=== PATIENT | female | born 1965 | race Caucasian/White ===

== ENCOUNTER 2017-05-01 15:45 | Emergency (ER) | payer OTHER ==
[~2017-05-01] VITALS: Ht 162.6 cm; Wt 83.9 kg
[~2017-05-01 15:45] MED LIST: ALBU8HFA2 INH; ALPR.25 PO; ALPR.5 PO; ASCO500 PO; ASPI325 PO; BENZ100A PO; Bactrim Ds Tab1 EACH PO; CEPH500 PO; CLIN150 PO; CLIN300 PO; CLOP75 PO; CODGUAEL PO; Cipro500 MG PO; Cleocin HCl150 MG PO; Coumadin5 MG PO; DOCU100 PO; DOXY100 PO; FLUC150A PO; Flagyl500 MG PO; HYDACE5 PO; HYDACE5325 PO; HYDMOR2 PO; HYDR1TAB94 PO; Humalog100 UNIT/1; Hydrocodone-Ap1 EA23 PO; IBUP800 PO; INS70/30PN SC; INSDET100 SC; INSUASPI SC; INSULANPEN SC; LISI5 PO; LORA.5 PO; LORA1 PO; METF500 PO; NAPR500 PO; Norco 5-325 Ta1 EACH PO; Novolog100 UNIT/2 SC; OXYACE5T PO; OXYC5 PO; PROM25 PO; RXHYDACE PO; RXIBUP800 PO; RXOXYACE PO; RXSULTRIDS PO; SULTRIDS PO; Silvadene20 GM TOP; TRAZ100 PO; Ultram50 MG PO; VALA500 PO; Vibramycin100 MG PO; Vistaril50 MG PO; ZINC220 PO; Zithromax250 MG PO; Zofran Odt4 MG SL; Zofran4 MG PO
[2017-05-01 16:28] LABS: BASOPHILS ABSOLUTE AUTO 0.09 K/mm3 (0.00-0.23); BASOPHILS PERCENT AUTO 1 % (0-2); EOSINOPHILS ABSOLUTE AUTO 0.16 K/mm3 (0.00-0.68); EOSINOPHILS PERCENT AUTO 2 % (0-6); Hematocrit 33.4 % (33.0-51.0); IMMATURE GRAN ABSOLUTE AUTO 0.04 K/mm3 (0.00-0.10); IMMATURE GRAN PERCENT AUTO 0 % (0-1); LYMPHOCYTES PERCENT AUTO 22 % (21-46); MONOCYTES ABSOLUTE AUTO 0.79 K/mm3 (0.16-1.47); MONOCYTES PERCENT AUTO 8 % (4-13); Mean Corpuscular HGB 27.3 pg (26.0-34.0); Mean Corpuscular HGB Conc 32.9 g/dL (31.5-36.5); Mean Corpuscular Volume 83 fL (80-100); NEUTROPHILS ABSOLUTE AUTO 7.13 K/mm3 (1.96-9.15); NEUTROPHILS PERCENT AUTO 68 % (41-73); Platelet Count 339 K/mm3 (150-400); RDW Coefficient Variation 12.6 % (11.7-14.2); RDW Standard Deviation 38.2 fL (35.1-46.3); Red Blood Cell Count 4.03 M/mm3 (3.80-5.20); White Blood Cell Count 10.51 K/mm3 (4.00-11.30)
[2017-05-01 16:57] LABS: Alanine Aminotransfer (ALT/SGP 20 U/L (12-78); Albumin, Blood 2.5 g/dL (3.4-5.0); Albumin/Globulin Ratio 0.5 (0.8-1.8); Alk Phos 116 U/L (50-136); Anion Gap 10 mmol/L (6-16); Aspartate Aminotrans (AST/SGOT 17 U/L (12-37); Bilirubin, Total 0.3 mg/dL (0.1-1.0); Blood Urea Nitrogen 34 mg/dL (8-24); Bun/Creatinine Ratio 21.9 (12.0-20.0); CO2, Blood 22 mmol/L (21-32); Calcium, Blood 9.1 mg/dL (8.5-10.1); Chloride, Blood 105 mmol/L (98-108); Creatinine, Blood 1.55 mg/dL (0.40-1.00); Globulin, Blood 5.1 g/dL (2.2-4.0); Glomerular Filtration Rate 38 (60-); Glucose, Blood 196 mg/dL (70-99); Sodium, Blood 137 mmol/L (136-145); Total Protein, Blood 7.6 g/dL (6.4-8.2); Troponin I <0.015 ng/mL (0.000-0.040)
[2017-05-01 17:13] LABS: Source, Urine Clean Catch
[2017-05-01 17:19] LABS: Bilirubin, Urine Neg (Neg); Blood, Urine 2+ (Neg); Glucose Qualitative, Urine 4+ (Neg); Ketones, Urine Neg (Neg); Leukocyte Esterase, Urine 1+ (Neg); Nitrite, Urine Neg (Neg); Protein, Urine 4+ (Neg); Urobilinogen, Urine NORM (Normal)
[2017-05-01 17:25] LABS: Appearance, Urine Clear (Clear); Color, Urine Yellow (P-Yellow)
[2017-05-01 17:34] LABS: Bacteria Few /hpf; Squamous Epithelial Cells Many /hpf (Few)
[2018-01-13] MEDS ORDERED: BASAGLAR K100 UNIT/1 SC (19:22)
[2018-01-13] MEDS ORDERED: VITAMIN D-32000 UNIT PO (19:24)
[2018-01-13] MEDS ORDERED: GLIP10 PO (19:24)
[2018-01-13] MEDS ORDERED: VENL37.5 PO (19:25)
[2018-01-13] MEDS ORDERED: GABA100 PO (19:26)
[2018-01-14] MEDS ORDERED: ATOR80 PO (17:05)
[2018-01-14] MEDS ORDERED: CARV6.25 PO (17:06)
== END 2017-05-01 18:48 | disposition home or self-care (01) ==
LOC: ER 15:45
PROVIDERS: Physician Assistant
DX: R42 Dizziness and giddiness (principal); R11.0 Nausea; I12.9 Hypertensive chronic kidney disease with stage 1 through stage 4 chronic kidney disease, or unspecified chronic kidney disease; E11.22 Type 2 diabetes mellitus with diabetic chronic kidney disease; F41.9 Anxiety disorder, unspecified; N18.2 Chronic kidney disease, stage 2 (mild); Z88.0 Allergy status to penicillin; Z88.5 Allergy status to narcotic agent; Z91.018 Allergy to other foods; Z88.2 Allergy status to sulfonamides; Z88.1 Allergy status to other antibiotic agents; Z79.4 Long term (current) use of insulin; Z79.899 Other long term (current) drug therapy; Z90.710 Acquired absence of both cervix and uterus; Z87.891 Personal history of nicotine dependence
CPT/HCPCS: 36415; 80053; 81001; 81025; 82947; 84484; 85025; 87086; 93005; 93010; 99283; J7030

== ENCOUNTER 2017-06-22 17:55 | Inpatient (IN) | payer OTHER ==
[~2017-06-22] VITALS: Ht 157.5 cm; Wt 99.5 kg
[2017-06-22 18:25] LABS: Calcium, Ionized (POC) 1.16 mmol/L (1.10-1.46); Chloride (POC) 104 mmol/L (98-108); Creatinine (POC) 1.3 mg/dL (0.6-1.0); Glucose (ISTAT POC) 245 mg/dL (70-99); Hemoglobin (POC) 9.9 g/dL (12.0-16.0); Potassium (POC) 4.4 mmol/L (3.5-5.5); Sodium (POC) 137 mmol/L (135-148); Total CO2 (POC) 24 mmol/L (21-32)
[2017-06-22 22:08] LABS: Mean Platelet Volume 9.7 fL (9.1-12.4); Platelet Count 391 K/mm3 (150-400)
[2017-06-22 22:22] LABS: International Normalized Ratio 1.03; Prothrombin Time Results 10.7 Sec (9.7-11.5)
[2017-06-23 06:15] LABS: BASOPHILS ABSOLUTE AUTO 0.04 K/mm3 (0.00-0.23); BASOPHILS PERCENT AUTO 0 % (0-2); EOSINOPHILS ABSOLUTE AUTO 0.17 K/mm3 (0.00-0.68); EOSINOPHILS PERCENT AUTO 2 % (0-6); Hematocrit 24.5 % (33.0-51.0); Hemoglobin 7.8 g/dL (11.5-16.0); IMMATURE GRAN ABSOLUTE AUTO 0.02 K/mm3 (0.00-0.10); IMMATURE GRAN PERCENT AUTO 0 % (0-1); LYMPHOCYTES ABSOLUTE AUTO 1.52 K/mm3 (0.84-5.20); LYMPHOCYTES PERCENT AUTO 15 % (21-46); MONOCYTES ABSOLUTE AUTO 0.66 K/mm3 (0.16-1.47); MONOCYTES PERCENT AUTO 6 % (4-13); Mean Corpuscular HGB 27.1 pg (26.0-34.0); Mean Corpuscular HGB Conc 31.8 g/dL (31.5-36.5); Mean Corpuscular Volume 85 fL (80-100); Mean Platelet Volume 9.2 fL (9.1-12.4); NEUTROPHILS PERCENT AUTO 77 % (41-73); Platelet Count 268 K/mm3 (150-400); RDW Coefficient Variation 13.5 % (11.7-14.2); RDW Standard Deviation 41.7 fL (35.1-46.3); Red Blood Cell Count 2.88 M/mm3 (3.80-5.20); White Blood Cell Count 10.31 K/mm3 (4.00-11.30)
[2017-06-23 06:38] LABS: Alanine Aminotransfer (ALT/SGP 21 U/L (12-78); Albumin, Blood 1.7 g/dL (3.4-5.0); Albumin/Globulin Ratio 0.4 (0.8-1.8); Alk Phos 113 U/L (50-136); Anion Gap 10 mmol/L (6-16); Aspartate Aminotrans (AST/SGOT 58 U/L (12-37); Bilirubin, Total 0.2 mg/dL (0.1-1.0); Blood Urea Nitrogen 27 mg/dL (8-24); Bun/Creatinine Ratio 21.3 (12.0-20.0); CHOL/HDL RATIO 6.6; CO2, Blood 21 mmol/L (21-32); Calcium, Blood 7.6 mg/dL (8.5-10.1); Chloride, Blood 106 mmol/L (98-108); Cholesterol 226 mg/dL (50-200); Creatinine, Blood 1.27 mg/dL (0.40-1.00); Globulin, Blood 4.5 g/dL (2.2-4.0); Glomerular Filtration Rate 47 (60-); Glucose, Blood 298 mg/dL (70-99); HDL Cholesterol 34 mg/dL (>39); Potassium, Blood 4.6 mmol/L (3.5-5.5); Sodium, Blood 137 mmol/L (136-145); Total Protein, Blood 6.2 g/dL (6.4-8.2); Triglycerides 472 mg/dL (30-160); Very Low Density Lipoprot Chol Unable to Calculate mg/dL (6-32)
[2017-06-23 06:51] LABS: LDL/HDL RATIO Unable to Calculate; Low Density Lipoprotein Chol Unable to Calculate mg/dL (0-110)
[2017-06-23 06:53] LABS: Percent Saturation 17.5 % (15.0-50.0)
[2017-06-24 03:53] LABS: BASOPHILS ABSOLUTE AUTO 0.02 K/mm3 (0.00-0.23); BASOPHILS PERCENT AUTO 0 % (0-2); EOSINOPHILS ABSOLUTE AUTO 0.11 K/mm3 (0.00-0.68); EOSINOPHILS PERCENT AUTO 1 % (0-6); Hematocrit 24.2 % (33.0-51.0); Hemoglobin 7.5 g/dL (11.5-16.0); IMMATURE GRAN ABSOLUTE AUTO 0.03 K/mm3 (0.00-0.10); IMMATURE GRAN PERCENT AUTO 0 % (0-1); LYMPHOCYTES ABSOLUTE AUTO 1.63 K/mm3 (0.84-5.20); LYMPHOCYTES PERCENT AUTO 18 % (21-46); MONOCYTES ABSOLUTE AUTO 0.55 K/mm3 (0.16-1.47); MONOCYTES PERCENT AUTO 6 % (4-13); Mean Corpuscular Volume 87 fL (80-100); Mean Platelet Volume 9.7 fL (9.1-12.4); NEUTROPHILS ABSOLUTE AUTO 6.61 K/mm3 (1.96-9.15); NEUTROPHILS PERCENT AUTO 74 % (41-73); Platelet Count 269 K/mm3 (150-400); RDW Coefficient Variation 13.7 % (11.7-14.2); RDW Standard Deviation 43.8 fL (35.1-46.3); Red Blood Cell Count 2.78 M/mm3 (3.80-5.20); White Blood Cell Count 8.95 K/mm3 (4.00-11.30)
[2017-06-24 04:15] LABS: Bun/Creatinine Ratio 15.8 (12.0-20.0); Calcium, Blood 7.7 mg/dL (8.5-10.1); Creatinine, Blood 2.34 mg/dL (0.40-1.00); Potassium, Blood 4.8 mmol/L (3.5-5.5)
[2017-06-25 05:59] LABS: Hematocrit 25.9 % (33.0-51.0); Hemoglobin 8.3 g/dL (11.5-16.0); Mean Corpuscular HGB 28.1 pg (26.0-34.0); Mean Corpuscular Volume 88 fL (80-100); Mean Platelet Volume 9.4 fL (9.1-12.4); NRBC ABSOLUTE 0.02 K/mm3 (0.00-0.02); NRBC Auto 0.2 /100 WBC (0.0-0.2); Platelet Count 271 K/mm3 (150-400); RDW Coefficient Variation 13.7 % (11.7-14.2); RDW Standard Deviation 44.1 fL (35.1-46.3); Red Blood Cell Count 2.95 M/mm3 (3.80-5.20); White Blood Cell Count 9.22 K/mm3 (4.00-11.30)
[2017-06-25 06:21] LABS: Albumin, Blood 1.9 g/dL (3.4-5.0); Anion Gap 11 mmol/L (6-16); Blood Urea Nitrogen 45 mg/dL (8-24); Bun/Creatinine Ratio 20.6 (12.0-20.0); CO2, Blood 18 mmol/L (21-32); Calcium, Blood 7.7 mg/dL (8.5-10.1); Chloride, Blood 110 mmol/L (98-108); Creatinine, Blood 2.18 mg/dL (0.40-1.00); Glomerular Filtration Rate 25 (60-); Glucose, Blood 294 mg/dL (70-99); Magnesium, Blood 1.7 mg/dL (1.6-2.4); Phosphorus, Blood 3.7 mg/dL (2.5-4.9); Potassium, Blood 4.7 mmol/L (3.5-5.5); Sodium, Blood 139 mmol/L (136-145)
[2017-06-25] MEDS ORDERED: ASPI325 PO (11:56)
[2017-06-25] MEDS ORDERED: CARV6.25 PO (11:58)
[2017-06-25] MEDS ORDERED: CLOP75 PO (11:59)
[2017-06-25] MEDS ORDERED: Pravachol40 MG PO (12:00)
[2017-06-25] MEDS ORDERED: FAMO20 PO (12:00)
== END 2017-06-25 12:50 | disposition home or self-care (01) | DRG 247 ==
LOC: ER 17:55 → ICUW 18:20 → PCU 06-24 17:53
PROVIDERS: Emergency Medicine; Internal Medicine; Internal Medicine Nephrology
PROC: 027034Z Dilation of Coronary Artery, One Artery with Drug-eluting Intraluminal Device, Percutaneous Approach (ICD-10-PCS; principal; 2017-06-22)
PROC: 4A023N7 Measurement of Cardiac Sampling and Pressure, Left Heart, Percutaneous Approach (ICD-10-PCS; 2017-06-22)
PROC: B2111ZZ Fluoroscopy of Multiple Coronary Arteries using Low Osmolar Contrast (ICD-10-PCS; 2017-06-22)
DX: I21.19 ST elevation (STEMI) myocardial infarction involving other coronary artery of inferior wall (principal); N17.9 Acute kidney failure, unspecified; E11.22 Type 2 diabetes mellitus with diabetic chronic kidney disease; E11.65 Type 2 diabetes mellitus with hyperglycemia; N25.81 Secondary hyperparathyroidism of renal origin; E78.5 Hyperlipidemia, unspecified; I12.9 Hypertensive chronic kidney disease with stage 1 through stage 4 chronic kidney disease, or unspecified chronic kidney disease; I25.10 Atherosclerotic heart disease of native coronary artery without angina pectoris; N18.2 Chronic kidney disease, stage 2 (mild); E86.9 Volume depletion, unspecified; R80.9 Proteinuria, unspecified; R31.29 Other microscopic hematuria; D63.1 Anemia in chronic kidney disease; Z79.4 Long term (current) use of insulin; Z88.5 Allergy status to narcotic agent; Z88.0 Allergy status to penicillin; Z88.2 Allergy status to sulfonamides; Z88.8 Allergy status to other drugs, medicaments and biological substances; Z91.018 Allergy to other foods; Z89.429 Acquired absence of other toe(s), unspecified side; Z87.891 Personal history of nicotine dependence
CPT/HCPCS: 36415; 36430; 37252; 76770; 80047; 80048; 80053; 80061; 80069; 82728; 82947; 83036; 83540; 83550; 83735; 84484; 85014; 85025; 85027; 85049; 85347; 85610; 85730; 86850; 86900; 86901; 86923; 92978; 93005; 93010; 93458; 96374; 96375; 97116; 97161; 99152; 99153; 99285; C1725; C1753; C1757; C1769; C1874; C1894; C9600; C9606; G8978; G8979; J0153; J0881; J1644; J1815; J2060; J2250; J2405; J3010; J7030; J7040; P9016; Q9967

== ENCOUNTER 2017-07-01 16:46 | Inpatient (IN) | payer OTHER ==
[~2017-07-01] VITALS: Ht 162.6 cm; Wt 102.8 kg
[~2017-07-01 16:46] MED LIST changes: +CARV6.25 PO; +FAMO20 PO; +Pravachol40 MG PO
[2017-07-01 17:10] LABS: Calcium, Ionized (POC) 0.99 mmol/L (1.10-1.46); Chloride (POC) 99 mmol/L (98-108); Creatinine (POC) 1.3 mg/dL (0.6-1.0); Glucose (ISTAT POC) 269 mg/dL (70-99); Hemoglobin (POC) 10.2 g/dL (12.0-16.0); Potassium (POC) 4.3 mmol/L (3.5-5.5); Sodium (POC) 137 mmol/L (135-148); Total CO2 (POC) 27 mmol/L (21-32)
[2017-07-01 17:10] LABS: Hematocrit 30.5 % (33.0-51.0); Hemoglobin 9.9 g/dL (11.5-16.0); Mean Corpuscular HGB 27.5 pg (26.0-34.0); Mean Corpuscular HGB Conc 32.5 g/dL (31.5-36.5); Mean Platelet Volume 8.9 fL (9.1-12.4); Platelet Count 417 K/mm3 (150-400); RDW Coefficient Variation 13.6 % (11.7-14.2); RDW Standard Deviation 41.9 fL (35.1-46.3); White Blood Cell Count 11.19 K/mm3 (4.00-11.30)
[2017-07-01 17:13] LABS: Mean Corpuscular Volume 85 fL (80-100)
[2017-07-01 17:22] LABS: International Normalized Ratio 1.1; Prothrombin Time Results 11.5 Sec (9.7-11.5)
[2017-07-01 17:38] LABS: Alanine Aminotransfer (ALT/SGP 19 U/L (12-78); Albumin/Globulin Ratio 0.4 (0.8-1.8); Alk Phos 154 U/L (50-136); Anion Gap 10 mmol/L (6-16); Aspartate Aminotrans (AST/SGOT 19 U/L (12-37); Bilirubin, Total 0.3 mg/dL (0.1-1.0); Blood Urea Nitrogen 23 mg/dL (8-24); Bun/Creatinine Ratio 18.4 (12.0-20.0); CHOL/HDL RATIO 5.3; CO2, Blood 27 mmol/L (21-32); Calcium, Blood 7.8 mg/dL (8.5-10.1); Chloride, Blood 101 mmol/L (98-108); Cholesterol 203 mg/dL (50-200); Creatinine, Blood 1.25 mg/dL (0.40-1.00); Globulin, Blood 5.2 g/dL (2.2-4.0); Glomerular Filtration Rate 48 (60-); Glucose, Blood 267 mg/dL (70-99); HDL Cholesterol 38 mg/dL (>39); LDL/HDL RATIO 2.8; Low Density Lipoprotein Chol 105 mg/dL (0-110); Magnesium, Blood 1.3 mg/dL (1.6-2.4); Potassium, Blood 4.3 mmol/L (3.5-5.5); Sodium, Blood 138 mmol/L (136-145); Total Protein, Blood 7.2 g/dL (6.4-8.2); Triglycerides 298 mg/dL (30-160); Very Low Density Lipoprot Chol 59 mg/dL (6-32)
[2017-07-02 04:35] LABS: Bun/Creatinine Ratio 23.1 (12.0-20.0); Calcium, Blood 7.6 mg/dL (8.5-10.1); Creatinine, Blood 1.3 mg/dL (0.40-1.00); Potassium, Blood 4.1 mmol/L (3.5-5.5)
[2017-07-02 04:52] LABS: Creatine Kinase MB 1.9 ng/mL (0.0-3.6)
[2017-07-02 05:02] LABS: Troponin I 1.15 ng/mL (0.000-0.040)
[2017-07-03 04:14] LABS: Bun/Creatinine Ratio 23.5 (12.0-20.0); Calcium, Blood 7.5 mg/dL (8.5-10.1); Creatinine, Blood 1.36 mg/dL (0.40-1.00); Magnesium, Blood 2.3 mg/dL (1.6-2.4); Potassium, Blood 4.7 mmol/L (3.5-5.5)
[2017-07-03] MEDS ORDERED: LOSA25 PO (09:23)
[2017-07-03] MEDS ORDERED: PANT40 PO (09:23)
== END 2017-07-03 10:22 | disposition home or self-care (01) | DRG 287 ==
LOC: ER 16:46 → PCU 18:18 → ICUW 18:18 → ICUE 21:59 → PCU 07-02 00:25
PROVIDERS: Emergency Medicine; Internal Medicine; Internal Medicine Cardiovascular Disease
PROC: 4A023N7 Measurement of Cardiac Sampling and Pressure, Left Heart, Percutaneous Approach (ICD-10-PCS; principal; 2017-07-02)
PROC: B2111ZZ Fluoroscopy of Multiple Coronary Arteries using Low Osmolar Contrast (ICD-10-PCS; 2017-07-02)
DX: I24.1 Dressler's syndrome (principal); I25.10 Atherosclerotic heart disease of native coronary artery without angina pectoris; I12.9 Hypertensive chronic kidney disease with stage 1 through stage 4 chronic kidney disease, or unspecified chronic kidney disease; E11.22 Type 2 diabetes mellitus with diabetic chronic kidney disease; N18.3 Chronic kidney disease, stage 3 (moderate); E78.5 Hyperlipidemia, unspecified; E11.51 Type 2 diabetes mellitus with diabetic peripheral angiopathy without gangrene; F41.9 Anxiety disorder, unspecified; E66.9 Obesity, unspecified; Z68.35 Body mass index [BMI] 35.0-35.9, adult
CPT/HCPCS: 36415; 71045; 80047; 80048; 80053; 80061; 82550; 82553; 82947; 83735; 84484; 85014; 85027; 85610; 85730; 86850; 86900; 86901; 93005; 93010; 93306; 93458; 96361; 96365; 96366; 96375; 99152; 99285; C1769; C1894; J1644; J1815; J2250; J2405; J3010; J3475; J7030; J7040; Q9967

== ENCOUNTER → 2017-11-18 | Outpatient (CLI) | payer OTHER ==
[~2017-11-18] MED LIST changes: +LOSA25 PO; +PANT40 PO
== END | disposition home or self-care (01) ==
LOC: LAB EV 15:58 → LAB SHORT 15:58
DX: N39.0 Urinary tract infection, site not specified (principal)
CPT/HCPCS: 87086

== ENCOUNTER 2018-06-12 13:58 | Emergency (ER) | payer OTHER ==
[~2018-06-12] VITALS: Ht 162.6 cm; Wt 86.2 kg
[~2018-06-12 13:58] MED LIST changes: +ATOR80 PO; +BASAGLAR K100 UNIT/1 SC; +GABA100 PO; +GLIP10 PO; +VENL37.5 PO; +VITAMIN D-32000 UNIT PO
[2018-06-12 14:49] LABS: BASOPHILS ABSOLUTE AUTO 0.05 K/mm3 (0.00-0.23); BASOPHILS PERCENT AUTO 1 % (0-2); EOSINOPHILS ABSOLUTE AUTO 0.13 K/mm3 (0.00-0.68); EOSINOPHILS PERCENT AUTO 1 % (0-6); Hematocrit 33.2 % (33.0-51.0); Hemoglobin 10.7 g/dL (11.5-16.0); IMMATURE GRAN ABSOLUTE AUTO 0.02 K/mm3 (0.00-0.10); IMMATURE GRAN PERCENT AUTO 0 % (0-1); LYMPHOCYTES PERCENT AUTO 16 % (21-46); MONOCYTES ABSOLUTE AUTO 0.67 K/mm3 (0.16-1.47); MONOCYTES PERCENT AUTO 7 % (4-13); Mean Corpuscular HGB 27.6 pg (26.0-34.0); Mean Corpuscular HGB Conc 32.2 g/dL (31.5-36.5); Mean Corpuscular Volume 86 fL (80-100); Mean Platelet Volume 9.5 fL (9.1-12.4); NEUTROPHILS ABSOLUTE AUTO 7.79 K/mm3 (1.96-9.15); NEUTROPHILS PERCENT AUTO 76 % (41-73); Platelet Count 405 K/mm3 (150-400); RDW Coefficient Variation 13.2 % (11.7-14.2); RDW Standard Deviation 40.7 fL (35.1-46.3); Red Blood Cell Count 3.88 M/mm3 (3.80-5.20); White Blood Cell Count 10.26 K/mm3 (4.00-11.30)
[2018-06-12 15:04] LABS: Albumin, Blood 2.4 g/dL (3.4-5.0); Albumin/Globulin Ratio 0.5 (0.8-1.8); Bilirubin, Total 0.3 mg/dL (0.1-1.0); Bun/Creatinine Ratio 20.5 (12.0-20.0); Calcium, Blood 8.3 mg/dL (8.5-10.1); Creatinine, Blood 1.51 mg/dL (0.40-1.00); Globulin, Blood 5.2 g/dL (2.2-4.0); Total Protein, Blood 7.6 g/dL (6.4-8.2); Troponin I 0.021 ng/mL (0.000-0.040)
[2018-06-12] MEDS ORDERED: HYDPAM100 PO (15:13)
[2018-06-12] MEDS ORDERED: HYDR1TAB94 PO (17:24)
== END 2018-06-12 17:36 | disposition home or self-care (01) ==
LOC: ER 13:58
PROVIDERS: Internal Medicine
DX: S20.02XA Contusion of left breast, initial encounter (principal); R55 Syncope and collapse; V43.64XA Car passenger injured in collision with van in traffic accident, initial encounter; Z88.0 Allergy status to penicillin; Z88.2 Allergy status to sulfonamides; Z88.5 Allergy status to narcotic agent; Z91.018 Allergy to other foods; Z88.1 Allergy status to other antibiotic agents; Z79.4 Long term (current) use of insulin; Z79.82 Long term (current) use of aspirin; Z79.899 Other long term (current) drug therapy; I11.0 Hypertensive heart disease with heart failure; E11.22 Type 2 diabetes mellitus with diabetic chronic kidney disease; N18.9 Chronic kidney disease, unspecified; E78.5 Hyperlipidemia, unspecified; E66.9 Obesity, unspecified; Z87.891 Personal history of nicotine dependence
CPT/HCPCS: 36415; 70450; 71046; 80053; 84484; 85025; 93005; 93010; 96374; 96375; 99285-25; J2060; J2405

== ENCOUNTER → 2018-12-19 | Outpatient (CLI) | payer OTHER ==
[~2018-12-19] MED LIST changes: +HYDPAM100 PO
[2018-12-19 15:03] LABS: Amorphous Light (0-Heavy); Bacteria Few /hpf; Source, Urine Clean Catch; Squamous Epithelial Cells Many /hpf (Few)
== END | disposition home or self-care (01) ==
LOC: LAB EV 15:00 → LAB SHORT 15:00
PROVIDERS: Physician Assistant
DX: R31.9 Hematuria, unspecified (principal)
CPT/HCPCS: 81015

== ENCOUNTER → 2019-01-16 | Outpatient (CLI) | payer OTHER | END | disposition home or self-care (01) | LOC: LAB EV 14:44 → LAB SHORT 14:44 | DX: L02.211 Cutaneous abscess of abdominal wall (principal) | CPT/HCPCS: 87070; 87075; 87077; 87147; 87186; 87205 ==

== ENCOUNTER 2019-03-14 13:06 | Observation (INO) | payer OTHER ==
[~2019-03-14] VITALS: Ht 165.1 cm; Wt 85.9 kg
[~2019-03-14 13:06] MED LIST changes: +ASPI325EC PO
[2019-03-14 13:53] LABS: BASOPHILS ABSOLUTE AUTO 0.03 K/mm3 (0.00-0.23); BASOPHILS PERCENT AUTO 0 % (0-2); EOSINOPHILS ABSOLUTE AUTO 0.02 K/mm3 (0.00-0.68); EOSINOPHILS PERCENT AUTO 0 % (0-6); Hematocrit 36.3 % (33.0-51.0); Hemoglobin 11.7 g/dL (11.5-16.0); IMMATURE GRAN ABSOLUTE AUTO 0.04 K/mm3 (0.00-0.10); IMMATURE GRAN PERCENT AUTO 0 % (0-1); LYMPHOCYTES PERCENT AUTO 1 % (21-46); MONOCYTES ABSOLUTE AUTO 0.19 K/mm3 (0.16-1.47); MONOCYTES PERCENT AUTO 1 % (4-13); Mean Corpuscular HGB 27.4 pg (26.0-34.0); Mean Corpuscular HGB Conc 32.2 g/dL (31.5-36.5); Mean Corpuscular Volume 85 fL (80-100); Mean Platelet Volume 9.6 fL (9.1-12.4); NEUTROPHILS PERCENT AUTO 97 % (41-73); Platelet Count 392 K/mm3 (150-400); RDW Coefficient Variation 13.6 % (11.7-14.2); RDW Standard Deviation 42.1 fL (35.1-46.3); Red Blood Cell Count 4.27 M/mm3 (3.80-5.20); White Blood Cell Count 14.98 K/mm3 (4.00-11.30)
[2019-03-14 14:05] LABS: Alanine Aminotransfer (ALT/SGP 22 U/L (12-78); Albumin, Blood 2.2 g/dL (3.4-5.0); Albumin/Globulin Ratio 0.4 (0.8-1.8); Alk Phos 130 U/L (50-136); Anion Gap 9 mmol/L (6-16); Aspartate Aminotrans (AST/SGOT 24 U/L (12-37); Bilirubin, Total 0.4 mg/dL (0.1-1.0); Blood Urea Nitrogen 43 mg/dL (8-24); Bun/Creatinine Ratio 22.9 (12.0-20.0); CO2, Blood 23 mmol/L (21-32); Calcium, Blood 8.8 mg/dL (8.5-10.1); Chloride, Blood 107 mmol/L (98-108); Creatinine, Blood 1.88 mg/dL (0.40-1.00); Globulin, Blood 5.4 g/dL (2.2-4.0); Glomerular Filtration Rate 30 (60-); Glucose, Blood 322 mg/dL (70-99); Potassium, Blood 4.1 mmol/L (3.5-5.5); Sodium, Blood 139 mmol/L (136-145); Total Protein, Blood 7.6 g/dL (6.4-8.2); Troponin I <0.015 ng/mL (0.000-0.040)
[2019-03-14] MEDS ORDERED: VENL37.5 PO (15:58)
--- NOTE | 2019-03-14 22:12 | NUR ---
ANXIETY PT HAVING A LARGE AMOUNT OF ANXIETY, DISPLAYING TEARFULNESS AND HYPERVENTILATING. PT RECIEVED HOME DOSE OF HYDROXYZINE ABOUT AN HOUR AGO. INEFFECTIVE. NOTIFIED DR BOOKER. JHONY WILL PLACE ORDERS FOR PRN LORAZEPAM.
--- NOTE | 2019-03-15 05:14 | NUR ---
TELEMETRY EVENT PT HAD 6-BEAT RUN OF VTACH. ASYMPTOMATIC. BP 149/74. NOTIFIED DR STRAUSS. NO NEW ORDERS.
--- NOTE | 2019-03-15 05:26 | NUR ---
SHIFT SUMMARY BP HAS STABILIZED, WITH SBP IN THE 140s. NO PRN HYDRALAZINE GIVEN. PT HAS NOT HAD ANY CHEST PAIN OR DISCOMFORT, SERIAL TROPONINS NEG, VSS. PT HAS BEEN NAUSEAS, NO VOMITING. RECIEVED ZOFRAN, COMPAZINE, AND REGLAN BEFORE REACHING THERAPEUTIC EFFECT. PT ALSO HAS QUITE A BIT OF ANXIETY. DR BOOKER ORDERED PRN ATIVAN WHICH HAS CALMED PT ENOUGH TO GET A FEW HOURS OF SLEEP TONIGHT. TELE IN PLACE; MOSTLY NSR IN THE 80-90s. PT DID HAVE 6-BEAT RUN OF VTACH; WAS ASYMPTOMATIC. AT BEDSIDE. PT EXTREMELY WEAK ON FEET/UNSTEADY GAIT AND IS A TWO PERS PIVOT TRANSFER TO [facility] [place]. BED ALARM ON FOR SAFETY PT IS IMPULSIVE AND SEEMS TO HAVE AMS PER REPORTS. WILL CONT TO MONITOR AND PROVIDE CARE UNTIL PRESUMED BY ONCOMING RN.
[2019-03-15 05:50] LABS: Anion Gap 7 mmol/L (6-16); Blood Urea Nitrogen 40 mg/dL (8-24); Bun/Creatinine Ratio 17.9 (12.0-20.0); CO2, Blood 24 mmol/L (21-32); Calcium, Blood 7.6 mg/dL (8.5-10.1); Chloride, Blood 110 mmol/L (98-108); Creatinine, Blood 2.23 mg/dL (0.40-1.00); Glomerular Filtration Rate 25 (60-); Glucose, Blood 77 mg/dL (70-99); Potassium, Blood 3.6 mmol/L (3.5-5.5); Sodium, Blood 141 mmol/L (136-145); Troponin I <0.015 ng/mL (0.000-0.040)
--- NOTE | 2019-03-15 11:51 | NUR ---
Upon receiving an admit referral, I visit patient. Patient tells me the struggles with homelessness and how they have been able to pull themselves up, patient also tells me her struggle with nausea and vomitting and that she is feeling much better today. Patient requested to see Father Cesar. I immediately left the patient and found Father Cesar and told him that patient is being DC and would like to see him. Father said he would go visit patient. I will continue to remain available to patient and family.
[2019-03-15] MEDS ORDERED: AMLO10 (12:59)
--- NOTE | 2019-03-15 14:30 | NUR ---
DISCHARGE INSTRUCTIONS COMPLETED AND DISCUSSED WITH PTS AND PT EXPRESSING UNDERSTANDING. HAD CALL OUT TO MD ABOUT ASPIRIN ORDER AND RECEIVED ORDER TO D/C AFTER PT LEFT. CALLED PT AND NOTIFIED HER TO STOP DISREGARD ASPIRIN ON DISCHARGE PAPERWORK. TO [facility] VIA W/C WITH .
== END 2019-03-15 14:15 | disposition home or self-care (01) ==
LOC: ER 13:06 → MEDS 13:07 → ER 16:31 → MEDS 16:49
PROVIDERS: Emergency Medicine; ADMIT Hospitalist
DX: R07.9 Chest pain, unspecified (principal); R11.2 Nausea with vomiting, unspecified; F41.9 Anxiety disorder, unspecified; I12.9 Hypertensive chronic kidney disease with stage 1 through stage 4 chronic kidney disease, or unspecified chronic kidney disease; E11.22 Type 2 diabetes mellitus with diabetic chronic kidney disease; N18.9 Chronic kidney disease, unspecified; E11.51 Type 2 diabetes mellitus with diabetic peripheral angiopathy without gangrene; I25.10 Atherosclerotic heart disease of native coronary artery without angina pectoris; E78.5 Hyperlipidemia, unspecified; Z95.5 Presence of coronary angioplasty implant and graft; Z79.4 Long term (current) use of insulin; Z79.02 Long term (current) use of antithrombotics/antiplatelets; Z79.82 Long term (current) use of aspirin; Z79.899 Other long term (current) drug therapy; Z88.0 Allergy status to penicillin; Z88.1 Allergy status to other antibiotic agents; Z88.2 Allergy status to sulfonamides; Z88.5 Allergy status to narcotic agent; Z91.018 Allergy to other foods; Z87.891 Personal history of nicotine dependence
CPT/HCPCS: 36415; 71046; 80048; 80053; 82947; 83880; 84484; 85025; 93005; 93010; 96361; 96372; 96374; 96375; 96376; 99285-25; C9113; G0378; J0780; J1200; J1644; J1815; J2060; J2405; J2765; J7120

== ENCOUNTER → 2019-05-06 | Outpatient (CLI) | payer OTHER ==
[~2019-05-06] MED LIST changes: +AMLO10
[2019-05-06 15:16] LABS: BASOPHILS ABSOLUTE AUTO 0.08 K/mm3 (0.00-0.23); BASOPHILS PERCENT AUTO 1 % (0-2); EOSINOPHILS ABSOLUTE AUTO 0.16 K/mm3 (0.00-0.68); EOSINOPHILS PERCENT AUTO 1 % (0-6); Hematocrit 33.6 % (33.0-51.0); Hemoglobin 11.1 g/dL (11.5-16.0); IMMATURE GRAN ABSOLUTE AUTO 0.06 K/mm3 (0.00-0.10); IMMATURE GRAN PERCENT AUTO 1 % (0-1); LYMPHOCYTES ABSOLUTE AUTO 1.48 K/mm3 (0.84-5.20); LYMPHOCYTES PERCENT AUTO 12 % (21-46); MONOCYTES ABSOLUTE AUTO 0.66 K/mm3 (0.16-1.47); MONOCYTES PERCENT AUTO 5 % (4-13); Mean Corpuscular HGB 27.5 pg (26.0-34.0); Mean Corpuscular Volume 83 fL (80-100); Mean Platelet Volume 9.5 fL (9.1-12.4); NEUTROPHILS ABSOLUTE AUTO 9.98 K/mm3 (1.96-9.15); NEUTROPHILS PERCENT AUTO 80 % (41-73); Platelet Count 445 K/mm3 (150-400); RDW Coefficient Variation 13.5 % (11.7-14.2); RDW Standard Deviation 41.1 fL (35.1-46.3); Red Blood Cell Count 4.03 M/mm3 (3.80-5.20); White Blood Cell Count 12.42 K/mm3 (4.00-11.30)
[2019-05-06 15:29] LABS: Albumin, Blood 2.2 g/dL (3.4-5.0); Albumin/Globulin Ratio 0.4 (0.8-1.8); Bilirubin, Total 0.3 mg/dL (0.1-1.0); Creatinine, Blood 2.25 mg/dL (0.40-1.00); Globulin, Blood 5.4 g/dL (2.2-4.0); Potassium, Blood 3.6 mmol/L (3.5-5.5); Total Protein, Blood 7.6 g/dL (6.4-8.2)
[2019-05-06 15:38] LABS: Calcium, Blood 8.3 mg/dL (8.5-10.1)
[2019-05-06 18:31] LABS: Source, Urine Clean Catch
[2019-05-06 18:38] LABS: Bacteria Mod /hpf; Hyaline Casts 0-2 /lpf (0-2); Squamous Epithelial Cells Mod /hpf (Few)
== END | disposition home or self-care (01) ==
LOC: LAB SHORT 15:12 → LAB EV 15:12
PROVIDERS: Physician Assistant
DX: E11.65 Type 2 diabetes mellitus with hyperglycemia (principal); R31.9 Hematuria, unspecified
CPT/HCPCS: 80053; 81015; 85025; 87086; 87147

== ENCOUNTER 2019-07-01 17:09 | Emergency (ER) | payer OTHER ==
[~2019-07-01] VITALS: Ht 162.6 cm; Wt 79.4 kg
[2019-07-01 17:57] LABS: Source, Urine Clean Catch
[2019-07-01 17:58] LABS: BASOPHILS ABSOLUTE AUTO 0.09 K/mm3 (0.00-0.23); BASOPHILS PERCENT AUTO 1 % (0-2); EOSINOPHILS ABSOLUTE AUTO 0.16 K/mm3 (0.00-0.68); EOSINOPHILS PERCENT AUTO 1 % (0-6); Hematocrit 36.4 % (33.0-51.0); Hemoglobin 11.6 g/dL (11.5-16.0); IMMATURE GRAN ABSOLUTE AUTO 0.04 K/mm3 (0.00-0.10); IMMATURE GRAN PERCENT AUTO 0 % (0-1); LYMPHOCYTES ABSOLUTE AUTO 1.58 K/mm3 (0.84-5.20); LYMPHOCYTES PERCENT AUTO 12 % (21-46); MONOCYTES ABSOLUTE AUTO 0.74 K/mm3 (0.16-1.47); MONOCYTES PERCENT AUTO 6 % (4-13); Mean Corpuscular HGB 27.2 pg (26.0-34.0); Mean Corpuscular HGB Conc 31.9 g/dL (31.5-36.5); Mean Corpuscular Volume 85 fL (80-100); Mean Platelet Volume 9.9 fL (9.1-12.4); NEUTROPHILS ABSOLUTE AUTO 10.94 K/mm3 (1.96-9.15); NEUTROPHILS PERCENT AUTO 81 % (41-73); Platelet Count 401 K/mm3 (150-400); RDW Coefficient Variation 14.2 % (11.7-14.2); RDW Standard Deviation 44.1 fL (35.1-46.3); Red Blood Cell Count 4.26 M/mm3 (3.80-5.20); White Blood Cell Count 13.55 K/mm3 (4.00-11.30)
[2019-07-01 18:02] LABS: Bilirubin, Urine Neg (Neg); Blood, Urine 3+ (Neg); Glucose Qualitative, Urine 4+ (Neg); Ketones, Urine Neg (Neg); Leukocyte Esterase, Urine Neg (Neg); Nitrite, Urine Neg (Neg); Protein, Urine 4+ (Neg); Specific Gravity, Urine 1.015 (1.003-1.022); Urobilinogen, Urine NORM (Normal)
[2019-07-01 18:11] LABS: Albumin, Blood 2.5 g/dL (3.4-5.0); Albumin/Globulin Ratio 0.5 (0.8-1.8); Bilirubin, Total 0.3 mg/dL (0.1-1.0); Bun/Creatinine Ratio 16.7 (12.0-20.0); Creatinine, Blood 2.28 mg/dL (0.40-1.00); Globulin, Blood 5.5 g/dL (2.2-4.0); Potassium, Blood 3.4 mmol/L (3.5-5.5)
[2019-07-01 18:18] LABS: Appearance, Urine Hazy (Clear); Color, Urine Yellow (P-Yellow)
[2019-07-01 18:19] LABS: Squamous Epithelial Cells Many /hpf (Few)
[2019-07-01 18:20] LABS: Bacteria Few /hpf; Red Blood Cells, Urine 0-2 /hpf (0-2); White Blood Cells, Urine 50-100 /hpf (0-5)
[2019-07-01 18:24] LABS: U Amphetamine Screen Not Detected; U Barbituate Screen Not Detected; U Benzodiazapine Screen Not Detected; U Buprenorphine Screen Not Detected; U Cannabinoids Screen Not Detected; U Cocaine Screen Not Detected; U Methadone Screen Not Detected; U Methamphetamine Screen Not Detected; U Opiates Screen Not Detected; U Oxycodone Screen Not Detected; U Phencyclidine Screen DETECTED; U Propoxyphene Screen Not Detected
[2019-07-02] MEDS ORDERED: HALO2 PO (21:05)
[2019-07-02] MEDS ORDERED: BENADRYL25 MG PO (21:05)
== END 2019-07-01 19:07 | disposition home or self-care (01) ==
LOC: ER 17:09
PROVIDERS: Emergency Medicine
DX: R44.1 Visual hallucinations (principal); D72.829 Elevated white blood cell count, unspecified; I12.9 Hypertensive chronic kidney disease with stage 1 through stage 4 chronic kidney disease, or unspecified chronic kidney disease; E11.22 Type 2 diabetes mellitus with diabetic chronic kidney disease; N18.2 Chronic kidney disease, stage 2 (mild); I25.10 Atherosclerotic heart disease of native coronary artery without angina pectoris; E11.51 Type 2 diabetes mellitus with diabetic peripheral angiopathy without gangrene; I73.9 Peripheral vascular disease, unspecified; E78.5 Hyperlipidemia, unspecified; F41.9 Anxiety disorder, unspecified; I25.2 Old myocardial infarction; Z88.0 Allergy status to penicillin; Z88.2 Allergy status to sulfonamides; Z88.5 Allergy status to narcotic agent; Z88.8 Allergy status to other drugs, medicaments and biological substances; Z91.018 Allergy to other foods; Z79.899 Other long term (current) drug therapy; Z79.4 Long term (current) use of insulin; Z79.82 Long term (current) use of aspirin; Z79.01 Long term (current) use of anticoagulants; Z87.891 Personal history of nicotine dependence
CPT/HCPCS: 36415; 70450; 80053; 81001; 85025; 99284-25

== ENCOUNTER 2019-07-02 19:41 | Emergency (ER) | payer OTHER ==
[~2019-07-02] VITALS: Ht 162.6 cm; Wt 74.8 kg
[2019-07-02] MEDS ORDERED: HALO2 PO (21:05)
[2019-07-02] MEDS ORDERED: BENADRYL25 MG PO (21:05)
== END 2019-07-02 21:35 | disposition home or self-care (01) ==
LOC: ER 19:41
DX: F29 Unspecified psychosis not due to a substance or known physiological condition (principal); I12.9 Hypertensive chronic kidney disease with stage 1 through stage 4 chronic kidney disease, or unspecified chronic kidney disease; N18.2 Chronic kidney disease, stage 2 (mild); E11.22 Type 2 diabetes mellitus with diabetic chronic kidney disease; F41.9 Anxiety disorder, unspecified; E11.51 Type 2 diabetes mellitus with diabetic peripheral angiopathy without gangrene; I73.9 Peripheral vascular disease, unspecified; I25.2 Old myocardial infarction; F32.9 Major depressive disorder, single episode, unspecified; Z87.891 Personal history of nicotine dependence; Z88.0 Allergy status to penicillin; Z88.2 Allergy status to sulfonamides; Z91.018 Allergy to other foods; Z88.8 Allergy status to other drugs, medicaments and biological substances; Z79.4 Long term (current) use of insulin; Z79.82 Long term (current) use of aspirin; Z79.899 Other long term (current) drug therapy
CPT/HCPCS: 99284; Q0163; Q3014

== ENCOUNTER 2019-07-05 15:11 | Emergency (ER) | payer OTHER ==
[~2019-07-05] VITALS: Ht 162.6 cm; Wt 72.6 kg
[~2019-07-05 15:11] MED LIST changes: +BENADRYL25 MG PO; +HALO2 PO
== END 2019-07-05 17:55 | disposition home or self-care (01) ==
LOC: ER 15:11
DX: R44.1 Visual hallucinations (principal); R07.9 Chest pain, unspecified; E11.22 Type 2 diabetes mellitus with diabetic chronic kidney disease; I12.9 Hypertensive chronic kidney disease with stage 1 through stage 4 chronic kidney disease, or unspecified chronic kidney disease; N18.2 Chronic kidney disease, stage 2 (mild); E11.51 Type 2 diabetes mellitus with diabetic peripheral angiopathy without gangrene; I73.9 Peripheral vascular disease, unspecified; I25.10 Atherosclerotic heart disease of native coronary artery without angina pectoris; I25.2 Old myocardial infarction; F41.9 Anxiety disorder, unspecified; F32.9 Major depressive disorder, single episode, unspecified; Z87.891 Personal history of nicotine dependence; Z88.0 Allergy status to penicillin; Z88.2 Allergy status to sulfonamides; Z88.5 Allergy status to narcotic agent; Z91.018 Allergy to other foods; Z88.8 Allergy status to other drugs, medicaments and biological substances; Z79.82 Long term (current) use of aspirin; Z79.899 Other long term (current) drug therapy; Z79.4 Long term (current) use of insulin; Z91.14 Patient's other noncompliance with medication regimen
CPT/HCPCS: 93005; 93010; 99285-25; Q0163

== ENCOUNTER → 2019-07-15 | Outpatient (CLI) | payer OTHER | END | disposition home or self-care (01) | LOC: LAB EV 16:21 → LAB SHORT 16:21 | DX: L08.9 Local infection of the skin and subcutaneous tissue, unspecified (principal) | CPT/HCPCS: 87070; 87075; 87077; 87147; 87186; 87205 ==

== ENCOUNTER 2019-08-21 14:01 | Emergency (ER) | payer OTHER ==
[~2019-08-21] VITALS: Ht 162.6 cm; Wt 77.1 kg
[~2019-08-21 14:01] MED LIST changes: -AMLO10; +AMLO10 PO; +BUSP10 PO; +HALO5 PO; +OMEP20ER PO
== END 2019-08-21 15:36 ==
LOC: ER 14:01
DX: S01.01XA Laceration without foreign body of scalp, initial encounter (principal); E11.9 Type 2 diabetes mellitus without complications; I10 Essential (primary) hypertension; Z88.0 Allergy status to penicillin; Z88.2 Allergy status to sulfonamides; Z88.6 Allergy status to analgesic agent; Z88.1 Allergy status to other antibiotic agents; Z88.5 Allergy status to narcotic agent; Z91.018 Allergy to other foods; Z79.899 Other long term (current) drug therapy; Z79.4 Long term (current) use of insulin; Z87.891 Personal history of nicotine dependence; W22.8XXA Striking against or struck by other objects, initial encounter
CPT/HCPCS: 12002; 99283-25

== ENCOUNTER 2019-09-15 19:39 | Inpatient (IN) | payer OTHER ==
[~2019-09-15] VITALS: Ht 162.6 cm; Wt 77.5 kg
[2019-09-15 20:27] LABS: Source, Urine Voided
[2019-09-15 20:41] LABS: Bilirubin, Urine Neg (Neg); Color, Urine Yellow (P-Yellow); Glucose Qualitative, Urine Neg (Neg); Nitrite, Urine Neg (Neg); Specific Gravity, Urine 1.025 (1.003-1.022); Urobilinogen, Urine NORM (Normal)
[2019-09-15 20:44] LABS: Appearance, Urine Turbid (Clear)
[2019-09-15 20:45] LABS: BASOPHILS ABSOLUTE AUTO 0.09 K/mm3 (0.00-0.23); BASOPHILS PERCENT AUTO 1 % (0-2); EOSINOPHILS ABSOLUTE AUTO 0.41 K/mm3 (0.00-0.68); EOSINOPHILS PERCENT AUTO 4 % (0-6); Hematocrit 27.9 % (33.0-51.0); Hemoglobin 8.3 g/dL (11.5-16.0); IMMATURE GRAN ABSOLUTE AUTO 0.04 K/mm3 (0.00-0.10); IMMATURE GRAN PERCENT AUTO 0 % (0-1); LYMPHOCYTES ABSOLUTE AUTO 1.04 K/mm3 (0.84-5.20); LYMPHOCYTES PERCENT AUTO 9 % (21-46); MONOCYTES ABSOLUTE AUTO 0.66 K/mm3 (0.16-1.47); MONOCYTES PERCENT AUTO 6 % (4-13); Mean Corpuscular HGB Conc 29.7 g/dL (31.5-36.5); Mean Corpuscular Volume 84 fL (80-100); Mean Platelet Volume 9.7 fL (9.1-12.4); NEUTROPHILS ABSOLUTE AUTO 9.18 K/mm3 (1.96-9.15); NEUTROPHILS PERCENT AUTO 80 % (41-73); Platelet Count 524 K/mm3 (150-400); RDW Coefficient Variation 15.2 % (11.7-14.2); RDW Standard Deviation 46.9 fL (35.1-46.3); Red Blood Cell Count 3.32 M/mm3 (3.80-5.20); White Blood Cell Count 11.42 K/mm3 (4.00-11.30)
[2019-09-15 20:45] LABS: Bacteria Many /hpf; Leukocyte Esterase, Urine 3+ (Neg); Protein, Urine 4+ (Neg); Red Blood Cells, Urine 0-2 /hpf (0-2); Squamous Epithelial Cells Rare /hpf (Few)
[2019-09-15 20:46] LABS: Amorphous Light (0-Heavy); Blood, Urine 4+ (Neg); Ketones, Urine 1+ (Neg); White Blood Cells, Urine TNTC /hpf (0-5)
[2019-09-15 21:04] LABS: Albumin, Blood 2.3 g/dL (3.4-5.0); Albumin/Globulin Ratio 0.4 (0.8-1.8); Bilirubin, Total 0.3 mg/dL (0.1-1.0); Bun/Creatinine Ratio 12.9 (12.0-20.0); Calcium, Blood 8.3 mg/dL (8.5-10.1); Creatinine, Blood 2.4 mg/dL (0.40-1.00); Potassium, Blood 4.7 mmol/L (3.5-5.5); Total Protein, Blood 8.3 g/dL (6.4-8.2)
[2019-09-16 02:29] LABS: BASOPHILS ABSOLUTE AUTO 0.08 K/mm3 (0.00-0.23); BASOPHILS PERCENT AUTO 1 % (0-2); EOSINOPHILS ABSOLUTE AUTO 0.27 K/mm3 (0.00-0.68); EOSINOPHILS PERCENT AUTO 2 % (0-6); Hematocrit 24.8 % (33.0-51.0); Hemoglobin 7.3 g/dL (11.5-16.0); IMMATURE GRAN ABSOLUTE AUTO 0.04 K/mm3 (0.00-0.10); IMMATURE GRAN PERCENT AUTO 0 % (0-1); LYMPHOCYTES PERCENT AUTO 6 % (21-46); MONOCYTES PERCENT AUTO 5 % (4-13); Mean Corpuscular HGB 24.8 pg (26.0-34.0); Mean Corpuscular HGB Conc 29.4 g/dL (31.5-36.5); Mean Corpuscular Volume 84 fL (80-100); Mean Platelet Volume 8.8 fL (9.1-12.4); NEUTROPHILS ABSOLUTE AUTO 11.03 K/mm3 (1.96-9.15); NEUTROPHILS PERCENT AUTO 87 % (41-73); Platelet Count 435 K/mm3 (150-400); RDW Standard Deviation 46.5 fL (35.1-46.3); Red Blood Cell Count 2.94 M/mm3 (3.80-5.20); White Blood Cell Count 12.72 K/mm3 (4.00-11.30)
[2019-09-16 02:46] LABS: Albumin, Blood 2.1 g/dL (3.4-5.0); Albumin/Globulin Ratio 0.4 (0.8-1.8); Bilirubin, Total 0.3 mg/dL (0.1-1.0); Bun/Creatinine Ratio 14.4 (12.0-20.0); Calcium, Blood 7.8 mg/dL (8.5-10.1); Creatinine, Blood 2.36 mg/dL (0.40-1.00); Globulin, Blood 5.1 g/dL (2.2-4.0); Potassium, Blood 4.4 mmol/L (3.5-5.5); Total Protein, Blood 7.2 g/dL (6.4-8.2)
[2019-09-16 03:36] LABS: IMMATURE RETIC FRACTION 22.2 % (2.3-16.0); RETIC HGB EQUIVALENT 24.2 pg (28.20-36.60); RETICULOCYTE ABSOLUTE 0.0476 M/mm3 (0.0200-0.1100); RETICULOCYTE COUNT PERCENT 1.62 % (0.50-2.50)
[2019-09-16 03:48] LABS: Percent Saturation 11.8 % (15.0-50.0)
--- NOTE | 2019-09-16 05:24 | NUR ---
JACKSCREW MAN SUMMARY NEW ADMIT FROM THE ED TONIGHT. PT ADMITTED WITH COLITIS AND UTI. MENDOZA CATH PLACED IN ED DUE DUE TO DISTENDED BLADDER THAT WAS FULL OF LIQUID AND AIR. MENDOZA DRAINING VERY CLOUDY, FOUL SMELLING YELLOW URINE. PT COMPLETELY BLIND AND REQUIRES MAX ASSIST. PT STATES SHE DOES NOT WALK AT HOME AND USES A WHEELCHAIR. PT HAVING SHARP RLQ PAIN. PT HAS REPORTED ALLERGY TO DILAUDID BUT PT STATED HER REACTION WAS UPSET STOMACH AND DENIED ANY TYPE OF ANAPHYLACTIC REACTION TO DILAUDID SO GOT OK BY DR TROY TO GIVE FOR PAIN. PAIN WELL MANAGED AFTER DILAUDID 1MG IV. PT HAVING N/V OFF/ON WITH SMALL AMOUNTS OF GREEN EMESIS. GIVEN REGLAN AND ZOFRAN. PT HYPERTENSIVE WITH SBP 160-180'S, DR TROY AWARE AND STATED TO JUST MONITOR FOR NOW PT IS PAINFUL AND NAUSEAS. WILL CONTINUE TO MONITOR.
[2019-09-16 08:56] LABS: Influenza A Negative (NEGATIVE); Influenza B Negative (NEGATIVE)
[2019-09-16 09:02] LABS: U Amphetamine Screen Not Detected; U Barbituate Screen Not Detected; U Benzodiazapine Screen Not Detected; U Buprenorphine Screen Not Detected; U Cannabinoids Screen Not Detected; U Cocaine Screen Not Detected; U Methadone Screen Not Detected; U Methamphetamine Screen Not Detected; U Opiates Screen DETECTED; U Oxycodone Screen Not Detected; U Phencyclidine Screen Not Detected; U Propoxyphene Screen Not Detected
--- NOTE | 2019-09-16 20:00 | NUR ---
SHIFT SUMMARY PT VERY ILL LOOKING AND MISERABLE RIGHT AFTER SHIFT REPORT THIS AM. VOMITING GREEN BILE EMESIS. MULTIPLE EMESIS BAGS GIVEN; GOWN AND LINEN CHANGED SEVERAL TIMES. PT ALSO CRYING OUT IN PAIN, HOLDING HER ABD. LEGALLY BLIND PER REPORT. PT MEDICATED FOR PAIN JUST PRIOR TO REPORT, BUT FENTANYL DID NOT LAST VERY LONG. DILUADID GIVEN PER EMAR AND NAUSEA MEDICATION WELL. PT STILL VOMITING WITH ONLY BRIEF PERIODS OF RELIEF. DR CHIN IN TO SEE PT THIS AM. NEW ORDERS PLACED. PT CONTINUED TO HAVE SEVERE NAUSEA AND VOMITING. DR CHIN NOTIFIED AND NEW ORDERS RECEIVED. EKG ORDERED AND PHENERGAN GIVEN PER EMAR. PT FINALLY ABLE TO GET SOME REST WITHOUT VOMITING. PAIN SEEMED TO DECREASE WELL WHEN PT ABLE TO QUIT VOMITING SO MUCH. FLU SWAB AND URINE CX OBTAINED AND SENT AT START OF SHIFT. UNABLE TO OBTAIN GI PANEL YET, PT HAS NOT HAD A BM. IVF'S AND IV ABX ADMIN PER EMAR. REPORT GIVEN TO ONCOMING RN.
--- NOTE | 2019-09-17 06:18 | NUR ---
SHIFT SUMMARY PT VERY PAINFUL AT START OF SHIFT, REPORTING LOWER ABD PAIN, MORE SEVERE ON R SIDE, 11/06. MEDICATED AT THIS TIME WITH 1 MG DILAUDID AND 4 MG ZOFRAN WITH GOOD EFFECT. PT'S NAUSEA DID INCREASE BRIEFLY AFTER DILUADID WAS GIVEN BUT IMPROVED AGAIN SHORTLY AFTER. PT MEDICATED ALSO W/ PHENERGAN 12.5 MG X 1. PT HAS DENIED ANY ABD PAIN OR NAUSEA SINCE PHENERGAN. PT HYPOGLYCEMIC THIS EVENING. WITH CBG GETTING LOW 47. 1/2 AMP OF D50 GIVEN X 2. LAST CHECK AT 429. NOTIFIED DR. DAY WITH NEW ORDERS FOR D5W AT 50 ML/HR. MENDOZA CATHETER IN PLACE, DRAINING DARK YELLOW URINE. PT HAS SOME INTERMITTENT FORGETFULNESS. SQUEEZING CALL LIGHT WHEN NOT NEEDING STAFF. WHEN ASKING PT HOW SHE AMBULATES AT HOME PT IS UNABLE TO ANSWER THIS QUESTION. VITAL SIGNS STABLE. WILL CONTINUE TO MONITOR AND REPORT TO DAY RN.
[2019-09-17 08:36] LABS: BASOPHILS ABSOLUTE AUTO 0.07 K/mm3 (0.00-0.23); BASOPHILS PERCENT AUTO 1 % (0-2); EOSINOPHILS ABSOLUTE AUTO 0.24 K/mm3 (0.00-0.68); EOSINOPHILS PERCENT AUTO 2 % (0-6); Hematocrit 24.7 % (33.0-51.0); Hemoglobin 7.2 g/dL (11.5-16.0); IMMATURE GRAN ABSOLUTE AUTO 0.06 K/mm3 (0.00-0.10); IMMATURE GRAN PERCENT AUTO 0 % (0-1); LYMPHOCYTES ABSOLUTE AUTO 1.23 K/mm3 (0.84-5.20); LYMPHOCYTES PERCENT AUTO 8 % (21-46); MONOCYTES ABSOLUTE AUTO 0.78 K/mm3 (0.16-1.47); MONOCYTES PERCENT AUTO 5 % (4-13); Mean Corpuscular HGB 24.8 pg (26.0-34.0); Mean Corpuscular HGB Conc 29.1 g/dL (31.5-36.5); Mean Corpuscular Volume 85 fL (80-100); Mean Platelet Volume 9.1 fL (9.1-12.4); NEUTROPHILS ABSOLUTE AUTO 13.11 K/mm3 (1.96-9.15); NEUTROPHILS PERCENT AUTO 85 % (41-73); Platelet Count 453 K/mm3 (150-400); RDW Coefficient Variation 15.3 % (11.7-14.2); RDW Standard Deviation 47.9 fL (35.1-46.3); White Blood Cell Count 15.49 K/mm3 (4.00-11.30)
[2019-09-17 08:49] LABS: Bun/Creatinine Ratio 13.2 (12.0-20.0); Calcium, Blood 7.8 mg/dL (8.5-10.1); Creatinine, Blood 2.42 mg/dL (0.40-1.00); Magnesium, Blood 1.4 mg/dL (1.6-2.4); Potassium, Blood 3.7 mmol/L (3.5-5.5)
--- NOTE | 2019-09-17 15:37 | NUR ---
SHIFT SUMMARY PT HAS BEEN A/O X 2-3 WITH NO C/O PAIN OR DISCOMFORT. SHE LOST IV ACCESS THIS MORNING AND THE DR WAS NOTIFIED SINCE HER MORNING ABO WAS LATE. A NEW IV WAS OBTAINED BY THE CHARGE NURSE. AND IV FLUIDS HAVE BEEN INFUSING ORDERED WITH NO FURTHER ISSUES. DR DID ADVANCED HER DIET TO SEE IF SHE CAN TOLERATE FOODS SINCE SHE HAS NOT HAD ANY EMESIS TODAY AND REPORTS FEELING MUCH BETTER FROM YESTERDAY. HER CAME TO VISIT TODAY. THE PLAN IS FOR THE PT TO CONTINUE ON IV ABO FOR AT LEAST ONE MORE DAY PER THE DR. MENDOZA IS PATENT. PT HAS BEEN SLEEPING MOST OF THE DAY. SHE IS ABLE TO MAKE HER NEEDS KNOWN AND USES THE CALL LIGHT FOR HELP WHEN NEEDED.
--- NOTE | 2019-09-18 06:04 | NUR ---
SHIFT SUMMARY- PT. HAD NO ACUTE CHANGES OVERNIGHT. CONFUSED AT BASELINE AND NON AMBULATORY. PT. STATES USES WC AT HOME W/SPOUSE ASSISTANCE. IV FLUIDS AND ABX GIVEN PER EMAR, TOLERATED WELL. MENDOZA CATHETER REMAINS IN PLACE, PATENT AND DRAINING WELL. PT. DENIED ANY PAIN OR DISCOMFORT T/O THE SHIFT. PLAN FOR D/C TODAY. CALL LIGHT WITHIN REACH AND SIDE RAILS UP X2. WILL CONT TO MONITOR.
[2019-09-18 08:53] LABS: BASOPHILS ABSOLUTE AUTO 0.07 K/mm3 (0.00-0.23); BASOPHILS PERCENT AUTO 1 % (0-2); EOSINOPHILS ABSOLUTE AUTO 0.55 K/mm3 (0.00-0.68); EOSINOPHILS PERCENT AUTO 4 % (0-6); Hematocrit 25.6 % (33.0-51.0); Hemoglobin 7.3 g/dL (11.5-16.0); IMMATURE GRAN ABSOLUTE AUTO 0.07 K/mm3 (0.00-0.10); IMMATURE GRAN PERCENT AUTO 1 % (0-1); LYMPHOCYTES PERCENT AUTO 10 % (21-46); MONOCYTES ABSOLUTE AUTO 0.76 K/mm3 (0.16-1.47); MONOCYTES PERCENT AUTO 6 % (4-13); Mean Corpuscular HGB 24.3 pg (26.0-34.0); Mean Corpuscular HGB Conc 28.5 g/dL (31.5-36.5); Mean Corpuscular Volume 85 fL (80-100); Mean Platelet Volume 9.5 fL (9.1-12.4); NEUTROPHILS ABSOLUTE AUTO 10.44 K/mm3 (1.96-9.15); NEUTROPHILS PERCENT AUTO 79 % (41-73); Platelet Count 442 K/mm3 (150-400); RDW Coefficient Variation 15.6 % (11.7-14.2); RDW Standard Deviation 48.6 fL (35.1-46.3); White Blood Cell Count 13.19 K/mm3 (4.00-11.30)
[2019-09-18 09:08] LABS: Bun/Creatinine Ratio 12.7 (12.0-20.0); Calcium, Blood 7.8 mg/dL (8.5-10.1); Creatinine, Blood 2.28 mg/dL (0.40-1.00); Potassium, Blood 3.8 mmol/L (3.5-5.5)
[2019-09-18] MEDS ORDERED: Florastor250 MG PO (10:43)
[2019-09-18] MEDS ORDERED: CEFD300 PO (10:43)
--- NOTE | 2019-09-18 11:52 | NUR ---
DISCHARGE SUMMARY PT AXO TO SELF AND FOLLOWING DIRECTIONS. PT DISCHARGED TO HOME WITH SPOUSE. PT LEFT ROOM VIA WHEELCHAIR AND FOUNDRY SUPERVISOR ESCORT AT 1130. ALL DISCHARGE INSTRUCTIONS DISCUSSED WITH PT'S SPOUSE, ALL QUESTIONS ANSWERED. PT AND SPOUSE AGREE TO FOLLOW UP WITH PCP AND DR NOLASCO WITHIN A WEEK AND AGREE TO CALL TOMORROW TO SCHEDULE THIS APPOINTMENT. IV DC'D AND BELONGINGS RETURNED.
== END 2019-09-18 11:30 | disposition home or self-care (01) | DRG 872 ==
LOC: ER 19:39 → MEDS 09-16 01:10 → ENPENDDIS 09-18 11:07 → MEDS 09-18 11:30
PROVIDERS: Emergency Medicine; Internal Medicine; ADMIT Internal Medicine
DX: A41.89 Other specified sepsis (principal); N12 Tubulo-interstitial nephritis, not specified as acute or chronic; N39.0 Urinary tract infection, site not specified; N13.30 Unspecified hydronephrosis; E87.2 Acidosis; R65.20 Severe sepsis without septic shock; E11.621 Type 2 diabetes mellitus with foot ulcer; L97.529 Non-pressure chronic ulcer of other part of left foot with unspecified severity; I12.9 Hypertensive chronic kidney disease with stage 1 through stage 4 chronic kidney disease, or unspecified chronic kidney disease; N18.3 Chronic kidney disease, stage 3 (moderate); E11.22 Type 2 diabetes mellitus with diabetic chronic kidney disease; E11.21 Type 2 diabetes mellitus with diabetic nephropathy; E11.40 Type 2 diabetes mellitus with diabetic neuropathy, unspecified; E11.51 Type 2 diabetes mellitus with diabetic peripheral angiopathy without gangrene; E11.319 Type 2 diabetes mellitus with unspecified diabetic retinopathy without macular edema; E78.5 Hyperlipidemia, unspecified; D63.1 Anemia in chronic kidney disease; I25.10 Atherosclerotic heart disease of native coronary artery without angina pectoris; E83.42 Hypomagnesemia; H54.8 Legal blindness, as defined in USA; K52.9 Noninfective gastroenteritis and colitis, unspecified; Z95.5 Presence of coronary angioplasty implant and graft; Z88.5 Allergy status to narcotic agent; Z88.0 Allergy status to penicillin; Z88.2 Allergy status to sulfonamides; Z88.8 Allergy status to other drugs, medicaments and biological substances; Z79.4 Long term (current) use of insulin; R80.9 Proteinuria, unspecified; E88.09 Other disorders of plasma-protein metabolism, not elsewhere classified; I25.2 Old myocardial infarction
CPT/HCPCS: 36415; 51702; 74176; 80048; 80053; 81001; 82728; 82947; 83540; 83550; 83605; 83735; 85025; 85045; 87077; 87086; 87186; 87804; 93005; 93010; 96361; 96365; 96367; 96375; 96376; 99285-25; A9270-GY; J0360; J0696; J1170; J1650; J2405; J2543; J2550; J2765; J3010; J3475; J7030; J7070; P9046

== ENCOUNTER 2019-11-24 18:29 | Emergency (ER) | payer OTHER ==
[~2019-11-24] VITALS: Ht 160 cm; Wt 61.2 kg
[~2019-11-24 18:29] MED LIST changes: +CARV25 PO; +CEFD300 PO; +FERROUS GLUCON324 MG PO; +Florastor250 MG PO; +GABA300 PO; +HUMALOG KW100 UNIT/1 SC; +HYDRA25 PO; +LEVFLO500 PO; +LISI20 PO; +LOPE2C PO; +MAGNESIUM OXID500 MG PO; +PROBIOTIC250 MG PO; +Promethazine12.5 M1 PO; +Prozac20 MG PO; +TAMS.4ER PO; +TIZA4 PO; +TUMS500 MG PO; +Vitamin D2000 UNIT PO
[2019-11-24 20:21] LABS: BASOPHILS ABSOLUTE AUTO 0.08 K/mm3 (0.00-0.23); BASOPHILS PERCENT AUTO 1 % (0-2); EOSINOPHILS ABSOLUTE AUTO 0.31 K/mm3 (0.00-0.68); EOSINOPHILS PERCENT AUTO 3 % (0-6); Hematocrit 28.5 % (33.0-51.0); Hemoglobin 8.9 g/dL (11.5-16.0); IMMATURE GRAN ABSOLUTE AUTO 0.05 K/mm3 (0.00-0.10); IMMATURE GRAN PERCENT AUTO 0 % (0-1); LYMPHOCYTES ABSOLUTE AUTO 1.06 K/mm3 (0.84-5.20); LYMPHOCYTES PERCENT AUTO 9 % (21-46); MONOCYTES ABSOLUTE AUTO 0.79 K/mm3 (0.16-1.47); MONOCYTES PERCENT AUTO 6 % (4-13); Mean Corpuscular HGB 25.7 pg (26.0-34.0); Mean Corpuscular HGB Conc 31.2 g/dL (31.5-36.5); Mean Corpuscular Volume 82 fL (80-100); Mean Platelet Volume 9.8 fL (9.1-12.4); NEUTROPHILS ABSOLUTE AUTO 10.06 K/mm3 (1.96-9.15); NEUTROPHILS PERCENT AUTO 82 % (41-73); Platelet Count 372 K/mm3 (150-400); RDW Coefficient Variation 15.4 % (11.7-14.2); RDW Standard Deviation 46.3 fL (35.1-46.3); Red Blood Cell Count 3.46 M/mm3 (3.80-5.20); White Blood Cell Count 12.35 K/mm3 (4.00-11.30)
[2019-11-24 20:39] LABS: Albumin, Blood 2.1 g/dL (3.4-5.0); Albumin/Globulin Ratio 0.4 (0.8-1.8); Bilirubin, Total 0.2 mg/dL (0.1-1.0); Bun/Creatinine Ratio 15.5 (12.0-20.0); Calcium, Blood 8.2 mg/dL (8.5-10.1); Creatinine, Blood 1.81 mg/dL (0.40-1.00); Globulin, Blood 4.7 g/dL (2.2-4.0); Total Protein, Blood 6.8 g/dL (6.4-8.2)
[2019-11-24 21:32] LABS: Source, Urine Catheter
[2019-11-24 21:37] LABS: Bilirubin, Urine Neg (Neg); Blood, Urine 2+ (Neg); Glucose Qualitative, Urine 4+ (Neg); Ketones, Urine Neg (Neg); Leukocyte Esterase, Urine 3+ (Neg); Nitrite, Urine Neg (Neg); Protein, Urine 4+ (Neg); Specific Gravity, Urine 1.015 (1.003-1.022); Urobilinogen, Urine NORM (Normal)
[2019-11-24 21:46] LABS: Appearance, Urine Cloudy (Clear); Color, Urine Yellow (P-Yellow)
[2019-11-24 21:47] LABS: Amorphous Mod (0-Heavy); Bacteria Mod /hpf; Red Blood Cells, Urine Rare /hpf (0-2); Squamous Epithelial Cells Not Seen /hpf (Few); White Blood Cells, Urine TNTC /hpf (0-5)
[2019-11-24] MEDS ORDERED: KEFLEX500 MG PO (22:39)
== END 2019-11-24 23:27 | disposition home or self-care (01) ==
LOC: ER 18:29
PROVIDERS: Emergency Medicine
DX: N39.0 Urinary tract infection, site not specified (principal); E11.319 Type 2 diabetes mellitus with unspecified diabetic retinopathy without macular edema; E11.22 Type 2 diabetes mellitus with diabetic chronic kidney disease; E11.51 Type 2 diabetes mellitus with diabetic peripheral angiopathy without gangrene; I12.9 Hypertensive chronic kidney disease with stage 1 through stage 4 chronic kidney disease, or unspecified chronic kidney disease; N18.4 Chronic kidney disease, stage 4 (severe); Z88.0 Allergy status to penicillin; Z88.2 Allergy status to sulfonamides; Z88.5 Allergy status to narcotic agent; Z91.018 Allergy to other foods; Z79.82 Long term (current) use of aspirin; Z79.899 Other long term (current) drug therapy; Z79.4 Long term (current) use of insulin; Z95.5 Presence of coronary angioplasty implant and graft; Z87.891 Personal history of nicotine dependence
CPT/HCPCS: 36415; 51702; 80053; 81001; 85025; 87086; 96365-59; 99283-25; J0696

== ENCOUNTER 2019-12-14 09:28 | Emergency (ER) | payer OTHER ==
[~2019-12-14] VITALS: Ht 162.6 cm; Wt 72.6 kg
[~2019-12-14 09:28] MED LIST changes: -AMLO10 PO; -CARV25 PO; -HUMALOG KW100 UNIT/1 SC; -HYDRA25 PO; +KEFLEX500 MG PO; -OMEP20ER PO
[2019-12-14] MEDS ORDERED: Kristalose20 GM PO (12:15)
== END 2019-12-14 15:05 | disposition home or self-care (01) ==
LOC: ER 09:28
DX: R51 Headache (principal); K59.00 Constipation, unspecified; Z88.0 Allergy status to penicillin; Z88.2 Allergy status to sulfonamides; Z88.1 Allergy status to other antibiotic agents; Z88.5 Allergy status to narcotic agent; Z91.018 Allergy to other foods; Z79.82 Long term (current) use of aspirin; Z79.899 Other long term (current) drug therapy; Z79.4 Long term (current) use of insulin; I12.9 Hypertensive chronic kidney disease with stage 1 through stage 4 chronic kidney disease, or unspecified chronic kidney disease; N18.4 Chronic kidney disease, stage 4 (severe); E11.22 Type 2 diabetes mellitus with diabetic chronic kidney disease; E11.51 Type 2 diabetes mellitus with diabetic peripheral angiopathy without gangrene; I73.9 Peripheral vascular disease, unspecified; I25.10 Atherosclerotic heart disease of native coronary artery without angina pectoris; E11.21 Type 2 diabetes mellitus with diabetic nephropathy; E11.43 Type 2 diabetes mellitus with diabetic autonomic (poly)neuropathy; K31.84 Gastroparesis; F41.9 Anxiety disorder, unspecified; F32.9 Major depressive disorder, single episode, unspecified
CPT/HCPCS: 74018; 96374; 96375; 99284-25; J1200; J1885; J2765; J7030

== ENCOUNTER 2019-12-16 10:44 | Inpatient (IN) | payer OTHER ==
[~2019-12-16] VITALS: Ht 162.6 cm; Wt 72.6 kg
[~2019-12-16 10:44] MED LIST changes: +Kristalose20 GM PO
[2019-12-16 11:09] LABS: BASOPHILS ABSOLUTE AUTO 0.08 K/mm3 (0.00-0.23); BASOPHILS PERCENT AUTO 0 % (0-2); EOSINOPHILS ABSOLUTE AUTO 0.15 K/mm3 (0.00-0.68); EOSINOPHILS PERCENT AUTO 1 % (0-6); Hematocrit 32.1 % (33.0-51.0); Hemoglobin 9.7 g/dL (11.5-16.0); IMMATURE GRAN ABSOLUTE AUTO 0.12 K/mm3 (0.00-0.10); IMMATURE GRAN PERCENT AUTO 1 % (0-1); LYMPHOCYTES ABSOLUTE AUTO 0.94 K/mm3 (0.84-5.20); LYMPHOCYTES PERCENT AUTO 4 % (21-46); MONOCYTES ABSOLUTE AUTO 0.88 K/mm3 (0.16-1.47); MONOCYTES PERCENT AUTO 4 % (4-13); Mean Corpuscular HGB 25.6 pg (26.0-34.0); Mean Corpuscular HGB Conc 30.2 g/dL (31.5-36.5); Mean Corpuscular Volume 85 fL (80-100); Mean Platelet Volume 9.8 fL (9.1-12.4); NEUTROPHILS ABSOLUTE AUTO 20.47 K/mm3 (1.96-9.15); NEUTROPHILS PERCENT AUTO 90 % (41-73); Platelet Count 461 K/mm3 (150-400); RDW Coefficient Variation 14.6 % (11.7-14.2); RDW Standard Deviation 45.1 fL (35.1-46.3); Red Blood Cell Count 3.79 M/mm3 (3.80-5.20); White Blood Cell Count 22.64 K/mm3 (4.00-11.30)
[2019-12-16 11:31] LABS: Albumin, Blood 2.3 g/dL (3.4-5.0); Albumin/Globulin Ratio 0.4 (0.8-1.8); Bilirubin, Total 0.3 mg/dL (0.1-1.0); Bun/Creatinine Ratio 13.1 (12.0-20.0); Calcium, Blood 8.5 mg/dL (8.5-10.1); Creatinine, Blood 2.21 mg/dL (0.40-1.00); Globulin, Blood 5.2 g/dL (2.2-4.0); Potassium, Blood 3.6 mmol/L (3.5-5.5); Total Protein, Blood 7.5 g/dL (6.4-8.2)
[2019-12-16 13:49] LABS: International Normalized Ratio 1.06; Prothrombin Time Results 11.3 Sec (9.7-11.5)
[2019-12-16 14:04] LABS: Source, Urine Clean Catch
[2019-12-16 14:09] LABS: Bilirubin, Urine Neg (Neg); Blood, Urine 4+ (Neg); Glucose Qualitative, Urine 2+ (Neg); Ketones, Urine 1+ (Neg); Leukocyte Esterase, Urine 3+ (Neg); Nitrite, Urine Neg (Neg); Protein, Urine 4+ (Neg); Specific Gravity, Urine 1.015 (1.003-1.022); Urobilinogen, Urine NORM (Normal)
[2019-12-16 14:11] LABS: CPK Creatine Kinase 70 U/L (26-193)
[2019-12-16 14:15] LABS: Appearance, Urine Cloudy (Clear); Color, Urine Yellow (P-Yellow)
[2019-12-16 14:16] LABS: Bacteria Many /hpf; Red Blood Cells, Urine TNTC /hpf (0-2); Squamous Epithelial Cells Few /hpf (Few); White Blood Cells, Urine TNTC /hpf (0-5)
[2019-12-16 14:28] LABS: U Amphetamine Screen Not Detected; U Barbituate Screen Not Detected; U Benzodiazapine Screen Not Detected; U Buprenorphine Screen Not Detected; U Cannabinoids Screen Not Detected; U Cocaine Screen Not Detected; U Methadone Screen Not Detected; U Methamphetamine Screen Not Detected; U Opiates Screen Not Detected; U Oxycodone Screen Not Detected; U Phencyclidine Screen Not Detected; U Propoxyphene Screen Not Detected
[2019-12-16] MEDS ORDERED: Haldol 5 mg Tab5 MG PO (15:02)
[2019-12-16] MEDS ORDERED: OMEP20ER PO (15:03)
[2019-12-16] MEDS ORDERED: ASPI325 PO (15:03)
[2019-12-16] MEDS ORDERED: TAMS.4ER PO (15:04)
[2019-12-16] MEDS ORDERED: MAGNESIUM OXID400 M1 PO (15:05)
[2019-12-16] MEDS ORDERED: VENLAFAXINE H37.5 M1 PO (15:05)
[2019-12-16] MEDS ORDERED: CARV25 PO (15:05)
[2019-12-16] MEDS ORDERED: ATOR80 PO (15:05)
[2019-12-16] MEDS ORDERED: HYDRA25 PO (15:06)
[2019-12-16] MEDS ORDERED: AMLO10 PO (15:06)
[2019-12-16] MEDS ORDERED: HUMALOG KW100 UNIT/1 SC (15:06)
[2019-12-16] MEDS ORDERED: BASAGLAR K100 UNIT/5 SC (15:08)
[2019-12-16] MEDS ORDERED: BUSP10 PO (15:16)
[2019-12-17 04:27] LABS: BASOPHILS ABSOLUTE AUTO 0.08 K/mm3 (0.00-0.23); BASOPHILS PERCENT AUTO 1 % (0-2); EOSINOPHILS ABSOLUTE AUTO 0.13 K/mm3 (0.00-0.68); EOSINOPHILS PERCENT AUTO 1 % (0-6); Hematocrit 26.6 % (33.0-51.0); Hemoglobin 8.1 g/dL (11.5-16.0); IMMATURE GRAN ABSOLUTE AUTO 0.09 K/mm3 (0.00-0.10); IMMATURE GRAN PERCENT AUTO 1 % (0-1); LYMPHOCYTES ABSOLUTE AUTO 1.18 K/mm3 (0.84-5.20); LYMPHOCYTES PERCENT AUTO 7 % (21-46); MONOCYTES PERCENT AUTO 5 % (4-13); Mean Corpuscular HGB 25.1 pg (26.0-34.0); Mean Corpuscular HGB Conc 30.5 g/dL (31.5-36.5); Mean Corpuscular Volume 82 fL (80-100); Mean Platelet Volume 9.9 fL (9.1-12.4); NEUTROPHILS ABSOLUTE AUTO 14.96 K/mm3 (1.96-9.15); NEUTROPHILS PERCENT AUTO 87 % (41-73); Platelet Count 412 K/mm3 (150-400); RDW Coefficient Variation 14.7 % (11.7-14.2); RDW Standard Deviation 43.7 fL (35.1-46.3); Red Blood Cell Count 3.23 M/mm3 (3.80-5.20); White Blood Cell Count 17.24 K/mm3 (4.00-11.30)
[2019-12-17 04:56] LABS: Alanine Aminotransfer (ALT/SGP <6 U/L (12-78); Albumin, Blood 1.9 g/dL (3.4-5.0); Albumin/Globulin Ratio 0.4 (0.8-1.8); Alk Phos 131 U/L (50-136); Anion Gap 6 mmol/L (6-16); Aspartate Aminotrans (AST/SGOT 8 U/L (12-37); Bilirubin, Total 0.5 mg/dL (0.1-1.0); Blood Urea Nitrogen 23 mg/dL (8-24); Bun/Creatinine Ratio 12.6 (12.0-20.0); CO2, Blood 24 mmol/L (21-32); Calcium, Blood 7.6 mg/dL (8.5-10.1); Chloride, Blood 108 mmol/L (98-108); Creatinine, Blood 1.82 mg/dL (0.40-1.00); Globulin, Blood 4.6 g/dL (2.2-4.0); Glomerular Filtration Rate 31 (60-); Glucose, Blood 177 mg/dL (70-99); Potassium, Blood 3.6 mmol/L (3.5-5.5); Sodium, Blood 138 mmol/L (136-145); Total Protein, Blood 6.5 g/dL (6.4-8.2)
--- NOTE | 2019-12-17 06:45 | NUR ---
SHIFT SUMARY PT SLEEPING IN ROOM COMFORTABLY AT THIS TIME NO ACUTE CHANGES IN STATUS T/O NIGHT. PT HAD OCCASIONAL CONFUSION BUT WAS ABLE TO STATE WHERE SHE WAS AND THE YEAR. PT UNABLE TO STATE EVENTS THAT LED HER HERE OR THE MONTH AND DATE. PT ALSO MAKES MANY ODD COMMENTS ABOUT BEING IN THE WRONG PLACE, OR THE WRONG UNIT. REWUIRES SOME REORIENTATION. PT HAS BEEN IMPULSIVE AT TIMES, BED ALARM ON FOR SAFETY. RESP EVEN UNLABRED ON RA W/ SATS >92%. DENIED THER NEEDS. REPORTS IS HUNGRY. PT EDUCATED ON NPO STATUS. D5% IN NS INFUSING IN PIV. CALL LIGHT IN REACH.
--- NOTE | 2019-12-17 11:45 | NUR ---
D5 INFUSION IS STOPPED PER TELEPHONE ORDERS FROM DR MARIE, NPO HAS BEEN CHANGED TO ADA DIET. PT PROVDIED WITH SNACK UNTIL LUNCH TRAY ARRIVES
--- NOTE | 2019-12-17 16:48 | NUR ---
PT ARRIVED TO FLOOR AT 1520. PT AOX3 WITH SOME CONFUSION. PT KEEPS THINKING SHE NEEDS TO GO SOMEWHERE. PT WILL USE CALL LIGHT, BUT DOES NOT CALL APPROPRIATELY. PT HAS BED IN LOWEST POSITION AND BED ALARM IN PLACE. PT SEEMS CALM AT THE MOMENT. WILL CONTINUE TO MONITOR.
[2019-12-18 04:37] LABS: BASOPHILS ABSOLUTE AUTO 0.07 K/mm3 (0.00-0.23); BASOPHILS PERCENT AUTO 1 % (0-2); EOSINOPHILS ABSOLUTE AUTO 0.18 K/mm3 (0.00-0.68); EOSINOPHILS PERCENT AUTO 2 % (0-6); Hematocrit 27.3 % (33.0-51.0); Hemoglobin 8.4 g/dL (11.5-16.0); IMMATURE GRAN ABSOLUTE AUTO 0.05 K/mm3 (0.00-0.10); IMMATURE GRAN PERCENT AUTO 0 % (0-1); LYMPHOCYTES ABSOLUTE AUTO 1.21 K/mm3 (0.84-5.20); LYMPHOCYTES PERCENT AUTO 11 % (21-46); MONOCYTES ABSOLUTE AUTO 0.66 K/mm3 (0.16-1.47); MONOCYTES PERCENT AUTO 6 % (4-13); Mean Corpuscular HGB 25.5 pg (26.0-34.0); Mean Corpuscular HGB Conc 30.8 g/dL (31.5-36.5); Mean Corpuscular Volume 83 fL (80-100); Mean Platelet Volume 9.7 fL (9.1-12.4); NEUTROPHILS ABSOLUTE AUTO 9.29 K/mm3 (1.96-9.15); NEUTROPHILS PERCENT AUTO 81 % (41-73); Platelet Count 414 K/mm3 (150-400); RDW Coefficient Variation 14.4 % (11.7-14.2); White Blood Cell Count 11.46 K/mm3 (4.00-11.30)
[2019-12-18 04:53] LABS: Albumin, Blood 1.9 g/dL (3.4-5.0); Anion Gap 6 mmol/L (6-16); Blood Urea Nitrogen 20 mg/dL (8-24); Bun/Creatinine Ratio 12.1 (12.0-20.0); CO2, Blood 25 mmol/L (21-32); Calcium, Blood 7.9 mg/dL (8.5-10.1); Chloride, Blood 108 mmol/L (98-108); Creatinine, Blood 1.65 mg/dL (0.40-1.00); Glomerular Filtration Rate 35 (60-); Glucose, Blood 178 mg/dL (70-99); Phosphorus, Blood 3.2 mg/dL (2.5-4.9); Sodium, Blood 139 mmol/L (136-145)
--- NOTE | 2019-12-18 08:03 | NUR ---
SUMMARY PT CONFUSED ENTIRE SHIFT. YELLING OUT INSTEAD OF USING CALL LIGHT.REGARDLESS OF FREQUENT ATTEMPTS TO REORIENT,WE WERE UNABLE.
--- NOTE | 2019-12-18 17:54 | NUR ---
PT AOX2 WITH A LOT OF CONFUSION. PT HAS BEEN NAPPING A LOT TODAY. PT DOES NOT KNOW WHERE SHE IS AT. DR MARIE WANTED PT TO START WALKING TO RESTROOM AND GETTING UP IN CHAIR, BUT PT WOULD NOT GET UP FOR ANYONE TODAY. THIS INSTALLATION SPECIALIST TRIED TO HELP PHYSICAL THERAPY TO GET PT UP. PT WOULD BARELY OPEN HER EYES AND THEN SHE WOULD ONLY SIT FOR A MOMENT AND SAY SHE WAS DIZZY OR NAUSEATED AND THEN MAKE HERSELF LAY BACK. TRIED MULTIPLE TIMES AND PT WOULD NOT TRY TO WORK AT THIS AT ALL. MENDOZA IS IN PLACE AND FLOWING WELL. WILL CONTINUE TO MONITOR CALL LIGHT IS WITHIN REACH.
--- NOTE | 2019-12-19 04:37 | NUR ---
SHIFT SUMMARY PT IS A&O & PLEASANT DURING SOME INTERACTIONS & USES CALL LIGHT APPROP, THEN WILL ACT CHILDISH, HELPLESS & CONFUSED DURING THE NEXT INTERACTION, PT SLEPT AT START OF SHIFT BUT HAS BEEN AWAKE SINCE ABOUT 0300 CALLING OUT TO STAFF MUCH OF THE TIME, MULT BEVERAGES GIVEN, HELPED PT UP 2 BSC W/2 ASSIST W/MUCH CONVINCING THEN BACK TO BEDREST, PT IS BEDRESTING AT THIS TIME W/TV ON, CALL LIGHT IN REACH, BED ALARM ACTIVE, WILL CONT TO MONITOR UNTIL REPORT GIVEN TO DAY RN.
[2019-12-19 05:00] LABS: BASOPHILS ABSOLUTE AUTO 0.06 K/mm3 (0.00-0.23); BASOPHILS PERCENT AUTO 1 % (0-2); EOSINOPHILS ABSOLUTE AUTO 0.17 K/mm3 (0.00-0.68); EOSINOPHILS PERCENT AUTO 2 % (0-6); Hemoglobin 9.1 g/dL (11.5-16.0); IMMATURE GRAN ABSOLUTE AUTO 0.04 K/mm3 (0.00-0.10); IMMATURE GRAN PERCENT AUTO 0 % (0-1); LYMPHOCYTES ABSOLUTE AUTO 1.14 K/mm3 (0.84-5.20); LYMPHOCYTES PERCENT AUTO 10 % (21-46); MONOCYTES ABSOLUTE AUTO 0.65 K/mm3 (0.16-1.47); MONOCYTES PERCENT AUTO 6 % (4-13); Mean Corpuscular HGB 25.2 pg (26.0-34.0); Mean Corpuscular HGB Conc 30.3 g/dL (31.5-36.5); Mean Corpuscular Volume 83 fL (80-100); Mean Platelet Volume 9.8 fL (9.1-12.4); NEUTROPHILS ABSOLUTE AUTO 9.39 K/mm3 (1.96-9.15); NEUTROPHILS PERCENT AUTO 82 % (41-73); Platelet Count 484 K/mm3 (150-400); RDW Coefficient Variation 14.5 % (11.7-14.2); RDW Standard Deviation 44.5 fL (35.1-46.3); Red Blood Cell Count 3.61 M/mm3 (3.80-5.20); White Blood Cell Count 11.45 K/mm3 (4.00-11.30)
[2019-12-19 05:19] LABS: Albumin, Blood 2.1 g/dL (3.4-5.0); Anion Gap 7 mmol/L (6-16); Blood Urea Nitrogen 21 mg/dL (8-24); CO2, Blood 23 mmol/L (21-32); Calcium, Blood 8.3 mg/dL (8.5-10.1); Chloride, Blood 106 mmol/L (98-108); Creatinine, Blood 1.62 mg/dL (0.40-1.00); Glomerular Filtration Rate 35 (60-); Glucose, Blood 319 mg/dL (70-99); Phosphorus, Blood 3.3 mg/dL (2.5-4.9); Potassium, Blood 4.2 mmol/L (3.5-5.5); Sodium, Blood 136 mmol/L (136-145)
[2019-12-19 12:56] LABS: BASOPHILS ABSOLUTE AUTO 0.07 K/mm3 (0.00-0.23); BASOPHILS PERCENT AUTO 1 % (0-2); EOSINOPHILS ABSOLUTE AUTO 0.22 K/mm3 (0.00-0.68); EOSINOPHILS PERCENT AUTO 2 % (0-6); Hematocrit 28.1 % (33.0-51.0); Hemoglobin 8.5 g/dL (11.5-16.0); IMMATURE GRAN ABSOLUTE AUTO 0.03 K/mm3 (0.00-0.10); IMMATURE GRAN PERCENT AUTO 0 % (0-1); LYMPHOCYTES ABSOLUTE AUTO 1.26 K/mm3 (0.84-5.20); LYMPHOCYTES PERCENT AUTO 13 % (21-46); MONOCYTES ABSOLUTE AUTO 0.57 K/mm3 (0.16-1.47); MONOCYTES PERCENT AUTO 6 % (4-13); Mean Corpuscular HGB 25.3 pg (26.0-34.0); Mean Corpuscular HGB Conc 30.2 g/dL (31.5-36.5); Mean Corpuscular Volume 84 fL (80-100); Mean Platelet Volume 9.6 fL (9.1-12.4); NEUTROPHILS ABSOLUTE AUTO 7.24 K/mm3 (1.96-9.15); NEUTROPHILS PERCENT AUTO 77 % (41-73); Platelet Count 413 K/mm3 (150-400); RDW Coefficient Variation 14.4 % (11.7-14.2); RDW Standard Deviation 43.7 fL (35.1-46.3); Red Blood Cell Count 3.36 M/mm3 (3.80-5.20); White Blood Cell Count 9.39 K/mm3 (4.00-11.30)
--- NOTE | 2019-12-19 16:49 | NUR ---
SUMMARY- PT ALERT TO SELF AND VERBAL. TOLERATING FOOD AND FLUIDS. PT DECLINED TO WORK WITH OT TODAY. VASALATES BETWEEN SOMUNOLANCE AND BEING AWAKE. SET UP FOR MEALS PT IS LEGALLY BLIND. THE ONLY ACTIVITY SHE AGREET TO ALL DAY WAS UP TO CHAIR. HAD BED BATH AND LINEN CHANGE. PUT IN SS CONSULT TO EVAL LIVING SITUATION. SPEECH CONSULT FOR COUGHING THIS AM AFTER PILLS. WILL REPORT TO NOC RN
--- NOTE | 2019-12-20 04:16 | NUR ---
TRANSFER REPORT/SHIFT SUMMARY PT IS A&O X 2-3, PT HAS DEMONSTRATED APPROPRIATE USE OF CALL LIGHT, BUT WILL CALL OUT, CRY AND YELL FOR HELP. NO ACUTE CHANGES THIS SHIFT. REFUSES TO AMBULATE TO BSC. 3 INCONTINENT BOWEL MOVEMENTS. THROWS BELONINGS ON THE FLOOR AND WILL CALL NURSING STAFF TO PICK THEM UP. CALLS NURSING STAFF FOR SIPS OF WATER OR TO COVER OR UNCOVER PATIENT. PT TRANSFERED TO ROOM 350 REPORT GIVEN TO SHAWNEE ANNE @ 0400, PT TRANSFERED @ 0410 ALL BELONGINGS TRANSFERED WITH PATIENT.
[2019-12-20 05:21] LABS: BASOPHILS ABSOLUTE AUTO 0.08 K/mm3 (0.00-0.23); BASOPHILS PERCENT AUTO 1 % (0-2); EOSINOPHILS ABSOLUTE AUTO 0.27 K/mm3 (0.00-0.68); EOSINOPHILS PERCENT AUTO 3 % (0-6); Hematocrit 28.7 % (33.0-51.0); Hemoglobin 8.8 g/dL (11.5-16.0); IMMATURE GRAN ABSOLUTE AUTO 0.03 K/mm3 (0.00-0.10); IMMATURE GRAN PERCENT AUTO 0 % (0-1); LYMPHOCYTES ABSOLUTE AUTO 1.14 K/mm3 (0.84-5.20); LYMPHOCYTES PERCENT AUTO 10 % (21-46); MONOCYTES ABSOLUTE AUTO 0.71 K/mm3 (0.16-1.47); MONOCYTES PERCENT AUTO 7 % (4-13); Mean Corpuscular HGB 25.2 pg (26.0-34.0); Mean Corpuscular HGB Conc 30.7 g/dL (31.5-36.5); Mean Corpuscular Volume 82 fL (80-100); Mean Platelet Volume 10.2 fL (9.1-12.4); NEUTROPHILS ABSOLUTE AUTO 8.77 K/mm3 (1.96-9.15); NEUTROPHILS PERCENT AUTO 80 % (41-73); Platelet Count 439 K/mm3 (150-400); RDW Coefficient Variation 14.5 % (11.7-14.2); RDW Standard Deviation 42.6 fL (35.1-46.3); Red Blood Cell Count 3.49 M/mm3 (3.80-5.20)
[2019-12-20 05:38] LABS: Albumin, Blood 2.2 g/dL (3.4-5.0); Anion Gap 7 mmol/L (6-16); Blood Urea Nitrogen 22 mg/dL (8-24); Bun/Creatinine Ratio 12.2 (12.0-20.0); CO2, Blood 24 mmol/L (21-32); Calcium, Blood 8.4 mg/dL (8.5-10.1); Chloride, Blood 105 mmol/L (98-108); Creatinine, Blood 1.81 mg/dL (0.40-1.00); Glomerular Filtration Rate 31 (60-); Glucose, Blood 274 mg/dL (70-99); Potassium, Blood 4.2 mmol/L (3.5-5.5); Sodium, Blood 136 mmol/L (136-145)
--- NOTE | 2019-12-20 07:23 | NUR ---
12/20/19 0410 PT RECEIVED VIA BED TO ROOM 350 IN SCU DUE TO HER YELLING AND IMPULSIVE BEHAVIOR. PT IS BLIND AND ORIENTED TO NEW ROOM AND CALL ZHAO WITHIN REACH. DENIES ANY DISCOMFORT AT THIS TIME. VITALS HAVE BEEN STABLE. MENDOZA CATH. PATENT AND DRAINING WELL. PT ANXIOUS AND RN REASSURED HER. BED ALARM ON.
--- NOTE | 2019-12-20 07:28 | NUR ---
12/20/19 2018 RN PAGED ON-CALL MD ABOUT PT'S MEDS SHE TAKES FOR ANXIETY AT HOME. MD ORDERED THEM TO BE STARTED. SEE ORDERS. WHEN RN CAME BACK TO ROOM, PT WAS SLEEPING WITHOUT DISTRESS. BED ALARM ON.
--- NOTE | 2019-12-20 15:43 | NUR ---
Pt. is lying in bed resting hernnurse inthe room attending to her needs encouraged pt. and offered prayers.
--- NOTE | 2019-12-20 18:21 | NUR ---
SHIFT SUMMARY PT A/O X2 AND PLEASANT. PT HAS MOMENTS OF NONSENSICAL SPEECH. PT HAS SLEPT FOR MOST OF THE DAY. MENDOZA IN PLACE, PATENT, AND DRAINING. PT HAS USED CALL LIGHT APPROPRIATELY BUT SOMETIMES WILL FORGET AND WILL CALL OUT. PT GETS TIDP PRN HALDOL FOR ANXIETY. REFUSED DINNER. VSS. PT CURRENTLY RESTING COMFORTABLY IN BED WITH CALL LIGHT IN REACH.
--- NOTE | 2019-12-21 04:39 | NUR ---
SHIFT SUMMARY ADMITTED FOR SEVERE SEPSIS. FOUND TO BE HYPOGLYCEMIC. FULL CODE. SHE'S BEEN RUNNIN HYPERTENSIVE SINCE ADMIT. SHE LIVES WITH HER AND HAS CAREGIVERS. CARE MANAGEMENT IS INVESTIGATING THE POSSIBILITIES OF PLACEMENT IN AN ADULT [facility] C[facility] VS AND THEIR ASSISTANCE WITH POSSIBLE INSULIN PUMP. SHE HAS A CHRONIC MENDOZA THAT IS PATENT AND DRAINING. SHE IS LEGALLY BLIND. TELEMETRY: NSR @ 85 BPM. SHE IS INCONTINENT OF BM, BUT IS ABLE TO TELL US WHEN TO CHANGE HER. SHE HELPED ROLL HER OWN BODY WE CHANGED HER. SHE WAS MOMENTARILY CONFUSED AT ONE POINT DURING SHIFT AND HALLUCINATING. I WAS ABLE TO REDIRECT HER.
--- NOTE | 2019-12-21 13:16 | NUR ---
Met. in bed and taking her lunch, she reports eneida doing much better prayed for her and blessed hewr.
--- NOTE | 2019-12-21 17:54 | NUR ---
SHIFT SUMMARY PT A/O X2 AND VERY SLEEPY FOR MOST OF THE DAY. WORKED WITH PT AND OT. EKLLY IN PLACE, PATENT AND DRAINING. MEDICATED WITH HALDOL ONCE TODAY FOR ANXIETY. YUMIL AROLDO'D. WORKING ON PLACEMENT FOR PT. PT IS LEGALLY BLIND AND CAME IN WITH HYPOGLYCEMIA. VSS. RESTING COMFORTABLY IN BED.
--- NOTE | 2019-12-22 04:03 | NUR ---
SOCIAL INSURANCE SPECIALIST SUMMARY ALERT AND ORIENTED X2. DENIES PAIN OR DISCOMFORT. APPEARED TO SLEEP MOST OF SHIFT. VSS. NO ACUTE CHANGES AT THIS TIME. BED IN LOWEST POSITION WITH CALL LIGHT IN REACH. WILL CONTINUE TO MONITOR AND REPORT TO ONCOMING RN.
[2019-12-22 05:09] LABS: Hematocrit 28.7 % (33.0-51.0); Hemoglobin 8.6 g/dL (11.5-16.0)
[2019-12-22 05:30] LABS: Albumin, Blood 2.1 g/dL (3.4-5.0); Anion Gap 5 mmol/L (6-16); Blood Urea Nitrogen 25 mg/dL (8-24); Bun/Creatinine Ratio 12.6 (12.0-20.0); CO2, Blood 25 mmol/L (21-32); Calcium, Blood 8.5 mg/dL (8.5-10.1); Chloride, Blood 109 mmol/L (98-108); Creatinine, Blood 1.98 mg/dL (0.40-1.00); Glomerular Filtration Rate 28 (60-); Glucose, Blood 150 mg/dL (70-99); Phosphorus, Blood 4.5 mg/dL (2.5-4.9); Potassium, Blood 4.8 mmol/L (3.5-5.5); Sodium, Blood 139 mmol/L (136-145)
--- NOTE | 2019-12-22 18:24 | NUR ---
Asked to speak to pt as she was tearful and upset about potential foster care placement. Apparently, someone had called her dtr and said pt was to go to foster care upon discharge. Family and pt very upset by this as they did not initiate this placement need. According to dtr, who is at bedside, they have been managing Kimmy's care quite well at home and see no need for a higher level of care. After reviewing chart, I cannot see a reason this idea has been floating around. I assured Kimmy and her dtr that "we" cannot make pt or family do anything against their wishes. It took some time to calm pt down, but she eventually did and was relieved and smiling when I left. Kimmy does seem quite labile and admits she's tired and fearful. Prayer and emotional support provided with good outcome. [employer] services will remain available.
--- NOTE | 2019-12-22 18:44 | NUR ---
SHIFT SUMMARY- PT HAS HAD NO ACUTE CHANGE T/O THE DAY. PT WAS TRANSFERED TO THE CHAIR THIS MORNING BY STAFF, SHE ATTEMPTED TO SIT AFTER EVERY STEP. SHE WAS ABLE TO FOLLWO STAFF INSTRUCTIONS, BUT THE TRANSFER WAS DIFFICULT WITH TWO STAFF MEMBERS. PT HAS A CHRONIC INDWELLING MENDOZA THAT IS PATENT AND DRAINING CLEAR YELLOW URINE WITH SEDIMENT. PT LEGALLY BLIND AND IS A FEED ASSIST. SETUP AND EXPLAINGING WHERE THE FOOD IS LOCATED ON THE PLATE HELPED HER FEED HERSELF AT LUNCH TIME, DAUGHTER PRESENT AT DINNER TIME AND WAS FEEDING THE PT, SHE WAS EMOTIONAL OVER HER LOSS OF FUNCTIONALLITY AND CHOKED ON HER DINNER, SHE WAS ABLE TO CLEAR IT AND SWALLOW THE FOOD APPROPRIATELY. NO WHEEZING OR SIGNS OF ASPIRATION AT THIS TIME. CALLED FOR DONTE FROM [facility] TO COME SEE THE PT SHE WAS CRYING OFF AND ON WITH DINNER. SPOKE TO PT ABOUT NOT EATING WHEN SHE IS EMOTIONAL AND CRYING.
--- NOTE | 2019-12-23 04:28 | NUR ---
DIRECTOR OF BILLING SUMMARY ALERT AND ORIENTED TO SELF. WAS AWAKE MOST OF THE NIGHT AND ANXIOUS AT TIMES. NO ACUTE CHANGES AT THIS TIME. VSS. BED IN LOWEST POSITION WITH CALL LIGHT IN REACH. WILL CONTINUE TO MONITOR AND REPORT TO ONCOMING RN.
[2019-12-23 05:24] LABS: Albumin, Blood 2.4 g/dL (3.4-5.0); Anion Gap 6 mmol/L (6-16); Blood Urea Nitrogen 36 mg/dL (8-24); CO2, Blood 25 mmol/L (21-32); Calcium, Blood 8.8 mg/dL (8.5-10.1); Chloride, Blood 106 mmol/L (98-108); Glomerular Filtration Rate 28 (60-); Glucose, Blood 153 mg/dL (70-99); Potassium, Blood 4.3 mmol/L (3.5-5.5); Sodium, Blood 137 mmol/L (136-145)
--- NOTE | 2019-12-23 11:50 | NUR ---
PT IS DIFFICULT TO PLEASE TODAY- PT CALLING OUT ASKING FOR ASSISTANCE ONCE ALL ASSISTANCE IS GIVEN SOON STAFF LEAVE THE ROOM SHE WILL PUSH THE CALL LIGHT. PT STATED SHE FELT NAUSEA AND WAS GOING TO BE SICK, THEN ONCE HER BG WAS CHECKED SHE ASKED FOR FOOD. GIVEN THAT SHE CHOKED ON DINNER LAST NIGHT STAFF INSISTED SHE SIT UP IN A CHAIR TO EAT. PT AGREED. MOMENTS AFTER SHE COMPLETED HER SANDWITCH SHE BEGANN CRYING HYSTERICALLY TO BE HELPED BACK TO BED, CALLING OUT FOR STAFF. LUNCH IS IN A FEW MINUTES AND SHE WILL HAVE TO GET UP AGAIN AT THAT TIME TO EAT SHE STATES SHE IS AWARE THEN CRIES WHEN SHE IS LEFT ALONE.
--- NOTE | 2019-12-23 12:00 | NUR ---
PT DENIES PAIN- REPOSITIONED HER IN THE RECLINER WITH A PILLOW UNDER HER AND PUT HER IN THE RECLINED POSSITION. PT AWARE LUNCH SHOULD ARRIVE ANY MINUTE. AFTER 2 MINUTES THE PT IS BEGINING TO CALL OUT FOR STAFF AND CRY. PT HAS DENIED ANY DISCOMFORT; WILL CONTINUE TO ATTEMPT TO COMFORT AT THIS TIME.
--- NOTE | 2019-12-23 13:08 | NUR ---
CALLED DR BOLDEN- REQUESTED PRN FOR ANXIETY, PT HAS BEEN INCONSOLABLE MOST OF THE DAY. UP IN THE CHAIR LAYING IN THE BED, PT CALLS OUT AND CRIES HYSTERICALLY AFTER 2-5 MINUTES ALONE. NO NEW ORDERS AT THIS TIME; DR YO IS ON THE CASE AND MANAGING THE PT PSYCHIATRIC MEDICATIONS; INSTRUCTED TO SPEAK TO HIM WHEN HE COMES TO SEE THE PT.
--- NOTE | 2019-12-23 14:32 | NUR ---
PT FINALLY SLEEPING SOUNDLY NO S&S OF DISTRESS RESP E/U ON ROOM AIR. PT HAS BP MED DUE HOWEVER STAFF WILL WAIT TO WAKE HER D/T HER EXTREME AGGITATION EARLIER. WILL GIVE THE MED LATE.
--- NOTE | 2019-12-23 15:56 | NUR ---
SHIFT SUMMARY- PT ALERT AND ORIENTED TO SELF AND PERSON. SHE THOUGHT IT WAS 2012 AT THE START OF THE SHIFT, SHE ASKED STAFF IF THEY "PULLED ME OUT OF THE WATER." SHE THOUGHT SHE WAS AT [facility]. PT WAS EMOTIONAL T/O THE SHIFT. SPOKE TO DR BSIWAS ABOUT ADDING A PRN FOR THE PT ANXIETY AND EMOTIONAL DISTRESS SHE SEEMS TO BE EXPERIENCING TODAY. NEW PRN ORDER RECIEVED BUT PT IS FINALLY SLEEPING SO MED NOT NEEDED AT THIS TIME. WILL PASS ON IN REPORT THAT IT IS AVAILABLE IF NEEDED. PT CURRENTLY IN BED CALL LIGHT IN REACH SHE IS SLEEPING WITH NO S&S OF DISTRESS NOTED AT THIS TIME WILL CTM.
[2019-12-24 05:45] LABS: Albumin, Blood 2.4 g/dL (3.4-5.0); Anion Gap 8 mmol/L (6-16); Blood Urea Nitrogen 42 mg/dL (8-24); Bun/Creatinine Ratio 21.9 (12.0-20.0); CO2, Blood 22 mmol/L (21-32); Calcium, Blood 8.5 mg/dL (8.5-10.1); Chloride, Blood 108 mmol/L (98-108); Creatinine, Blood 1.92 mg/dL (0.40-1.00); Glomerular Filtration Rate 29 (60-); Glucose, Blood 144 mg/dL (70-99); Phosphorus, Blood 4.1 mg/dL (2.5-4.9); Potassium, Blood 4.1 mmol/L (3.5-5.5); Sodium, Blood 138 mmol/L (136-145)
--- NOTE | 2019-12-24 06:19 | NUR ---
SHIFT SUMMARY NO ACUTE CHANGES THIS SHIFT. PT SLEPT T/O NIGHT UNTIL 0430 WITH MINIMAL "CALLING OUT" OR SHOUTING. MEDICATED X1 FOR ANXIETY PER MAY. NO APPARENT DISTRESS OR NEEDS AT THIS TIME. CALL LIGHT WITHIN REACH. WILL CONTINUE TO MONITOR UNTIL REPORT GIVEN TO DAY RN.
--- NOTE | 2019-12-24 11:24 | NUR ---
PT VOMITED AND ASPIRATED, CALLED DR BOLDEN AND LEFT A MESSAGE. CHECKED THE BG, WHICH WNL, AND SATS 100%.
--- NOTE | 2019-12-24 16:42 | NUR ---
SHIFT SUMMARY PT ALERT ORIENTED TO SELF. PT VOMITED AND ASPIRATED THIS MORNING; CALLED DR BOLDEN; PT HAD AN XRAY- SEE CHART. VSS, CHECKED THE TEMPERATURE AND SATS SEVERAL TIMES. PT STATED SHE IS FEELING BETTER AND REFUSED MEDICATION FOR NAUSEA; OTHERWISE NO APPARENT DISTRESS. NO C/O PAIN; SOB. BED IS IN THE LOWEST POSITION; CALL LIGHTS WITHIN REACH AND WILL CONT MONITOR.
[2019-12-25 04:42] LABS: BASOPHILS ABSOLUTE AUTO 0.06 K/mm3 (0.00-0.23); BASOPHILS PERCENT AUTO 1 % (0-2); EOSINOPHILS ABSOLUTE AUTO 0.28 K/mm3 (0.00-0.68); EOSINOPHILS PERCENT AUTO 3 % (0-6); Hematocrit 26.8 % (33.0-51.0); Hemoglobin 8.3 g/dL (11.5-16.0); IMMATURE GRAN ABSOLUTE AUTO 0.03 K/mm3 (0.00-0.10); IMMATURE GRAN PERCENT AUTO 0 % (0-1); LYMPHOCYTES ABSOLUTE AUTO 1.83 K/mm3 (0.84-5.20); LYMPHOCYTES PERCENT AUTO 19 % (21-46); MONOCYTES ABSOLUTE AUTO 0.58 K/mm3 (0.16-1.47); MONOCYTES PERCENT AUTO 6 % (4-13); Mean Corpuscular HGB 25.9 pg (26.0-34.0); Mean Corpuscular Volume 84 fL (80-100); Mean Platelet Volume 9.5 fL (9.1-12.4); NEUTROPHILS ABSOLUTE AUTO 6.75 K/mm3 (1.96-9.15); NEUTROPHILS PERCENT AUTO 71 % (41-73); Platelet Count 423 K/mm3 (150-400); RDW Coefficient Variation 15.3 % (11.7-14.2); RDW Standard Deviation 45.5 fL (35.1-46.3); White Blood Cell Count 9.53 K/mm3 (4.00-11.30)
[2019-12-25 05:13] LABS: Albumin, Blood 2.3 g/dL (3.4-5.0); Anion Gap 8 mmol/L (6-16); Blood Urea Nitrogen 39 mg/dL (8-24); Bun/Creatinine Ratio 20.6 (12.0-20.0); CO2, Blood 23 mmol/L (21-32); Calcium, Blood 8.7 mg/dL (8.5-10.1); Chloride, Blood 110 mmol/L (98-108); Creatinine, Blood 1.89 mg/dL (0.40-1.00); Glomerular Filtration Rate 30 (60-); Glucose, Blood 119 mg/dL (70-99); Phosphorus, Blood 5.2 mg/dL (2.5-4.9); Sodium, Blood 141 mmol/L (136-145)
--- NOTE | 2019-12-25 05:24 | NUR ---
SHIFT SUMMARY NO ACUTE CHANGES THIS SHIFT. PT SLEPT WELL T/O THE NIGHT. NO APPARENT DISTRESS OR NEEDS AT THIS TIME. CALL LIGHT AND PERSONAL ITEMS WITHIN REACH. WILL CONTINUE TO MONITOR UNTIL REPORT IS GIVEN TO DAY RN.
--- NOTE | 2019-12-25 17:11 | NUR ---
SHIFT SUMMARY PT AO TO SELF. NO ACUTE CHANGES THIS SHIFT; NO C.O PAIN, SOB, N&V. AWAITS PLACEMENT. PT HAS CHRONIC MENDOZA DRAINING AND PATENT. NO APPARENT DISTRESS. BED ALARM ON, BED IS IN THE LOWEST POSITION; CALL LIGHTS WIHTIN REACH AND WILL CONT MONITOR.
--- NOTE | 2019-12-26 06:20 | NUR ---
SHIFT SUMMARY NO ACUTE CHANGES THIS SHIFT. PT STATES SHE OVER ALL FEELS BETTER THAN SHE HAS OVER THE LAST COUPLE OF DAYS. PT SLEPT T/O NIGHT. REPOSITIONED Q2-3H PT IS LAYING IN BED, BED IN LOWERED POSITION. BED ALARM ON. CALL LIGHT AND PERSONAL ITEMS WITHIN REACH. NO APPARTENT DISRESS OR NEEDS AT THIS TIME. WILL CONTINUE TO MONITOR UNTIL REPORT GIVEN TO DAY RN.
--- NOTE | 2019-12-26 11:17 | NUR ---
Met pt. lying in bed resting ,pt. reports doing fine and stevo go home today or calvin encouraged pt. , and offered prayers. and spiritual support.
--- NOTE | 2019-12-26 14:17 | NUR ---
DISCHARGE BARREL COOPER CONTACTED THIS AM BUY THIS RN TO NOTIFY OF DAUGHTERS REQUEST TO SPEAK WITH CM. CM NOTIFIED THIS RN THAT PATIENT AND DAUGHTER WANT PT TO DISCHARGE HOME. PATIENT REFUSING D/C TO [facility]. DAUGHTER STATES THAT SHE WILL ASSIST PT AT HOME AND MOVE IN IF NECESSARY. DISCHARGE PER MD. RX FAXED TO [facility], PER DTR REQUEST. DTR AND PT VERBALIZED UNDERSTANDING OF THE DISCHARGE INSTRUCTIONS. ALL QUESTIONS ANSWERED.
== END 2019-12-26 13:50 | disposition home health service (06) | DRG 682 ==
LOC: ER 10:44 → MEDS 14:50 → PCU 14:50 → MEDS 18:22 → PCU 18:50 → MEDS 12-17 15:08 → ENPENDDIS 12-26 12:07 → MEDS 12-26 13:50
PROVIDERS: Emergency Medicine; Family Medicine; Internal Medicine; Nurse Practitioner Acute Care; ADMIT Internal Medicine
DX: N17.9 Acute kidney failure, unspecified (principal); G92 Toxic encephalopathy; I13.0 Hypertensive heart and chronic kidney disease with heart failure and stage 1 through stage 4 chronic kidney disease, or unspecified chronic kidney disease; I50.32 Chronic diastolic (congestive) heart failure; E11.649 Type 2 diabetes mellitus with hypoglycemia without coma; E11.22 Type 2 diabetes mellitus with diabetic chronic kidney disease; N18.3 Chronic kidney disease, stage 3 (moderate); F32.9 Major depressive disorder, single episode, unspecified; F41.9 Anxiety disorder, unspecified; I25.10 Atherosclerotic heart disease of native coronary artery without angina pectoris; Z95.5 Presence of coronary angioplasty implant and graft; E11.319 Type 2 diabetes mellitus with unspecified diabetic retinopathy without macular edema; H54.8 Legal blindness, as defined in USA; E78.5 Hyperlipidemia, unspecified; K21.9 Gastro-esophageal reflux disease without esophagitis; Z88.1 Allergy status to other antibiotic agents; Z88.0 Allergy status to penicillin; Z88.2 Allergy status to sulfonamides; Z88.8 Allergy status to other drugs, medicaments and biological substances; Z91.018 Allergy to other foods; R68.0 Hypothermia, not associated with low environmental temperature; E11.65 Type 2 diabetes mellitus with hyperglycemia; D63.1 Anemia in chronic kidney disease; Z79.4 Long term (current) use of insulin; E86.0 Dehydration
CPT/HCPCS: 36415; 51702; 70450; 71045; 71046; 80053; 80069; 81001; 82140; 82550; 82800; 82947; 83605; 83735; 85014; 85018; 85025; 85610; 87040; 87086; 96361-59; 96365-59; 97110; 97112; 97162; 97166; 97530; 97535; 99285-25; A9270; A9270-GY; C9113; G0480; J0696; J1644; J1815; J7030; J7042

== ENCOUNTER 2020-01-13 11:21 | Observation (INO) | payer OTHER ==
[~2020-01-13] VITALS: Ht 162.6 cm; Wt 70.3 kg
[~2020-01-13 11:21] MED LIST changes: +AMLO10 PO; +BASAGLAR K100 UNIT/5 SC; +CARV25 PO; +HUMALOG KW100 UNIT/1 SC; +HYDRA25 PO; +Haldol 5 mg Tab5 MG PO; +MAGNESIUM OXID400 M1 PO; +OMEP20ER PO; +QUET25 PO; +Seroquel Xr50 MG PO; +TRAZ50 PO; +VENLAFAXINE H37.5 M1 PO
[2020-01-13 12:20] LABS: Calcium, Ionized (POC) 1.13 mmol/L (1.10-1.46); Chloride (POC) 115 mmol/L (98-108); Creatinine (POC) 1.8 mg/dL (0.6-1.0); Glucose (ISTAT POC) 137 mg/dL (70-99); Hemoglobin (POC) 7.5 g/dL (12.0-16.0); Potassium (POC) 4.1 mmol/L (3.5-5.5); Sodium (POC) 146 mmol/L (135-148); Total CO2 (POC) 19 mmol/L (21-32)
[2020-01-13] MEDS ORDERED: Ativan1 MG PO (12:37)
[2020-01-13] MEDS ORDERED: QUETIAPINE FUMA50 MG PO (15:12)
[2020-01-13] MEDS ORDERED: SEROQUEL100 MG PO (15:12)
--- NOTE | 2020-01-13 21:35 | NUR ---
RECEIVED REPORT FROM BABAKED RN. PT TRANSPORTED TO MEDICAL FLOOR VIA GURNEY, TRANSFERRED TO BED WITH SLIDER SHEET AND ASSISTANCE OF 3; TOLERATED WELL. PT MOANING, CRYING OUT, WHEN ASKED WHAT'S WRONG, PT STATES SHE DOESN'T KNOW. ORIENTED TO PLACE AND USE OF CALL LIGHT. SITUATED IN ROOM. HIGH SCHOOL VICE PRINCIPAL ASSISTING WITH ATTENDS AND LINEN CHANGE. MENDOZA CATHETER PATENT AND DRAINING CLEAR YELLOW URINE, FREE OF KINKS. CALL LIGHT, POSSESSIONS IN REACH, BED IN LOWEST POSITION WITH ALARMS ON, SIDERAILS UP X3. WILL CONTINUE TO MONITOR AND PROVIDE CARE NEEDED.
--- NOTE | 2020-01-13 23:56 | NUR ---
SPOKE TO JAG RICHARD REGARDING PT'S LACK OF IV ACCESS ON ADMISSION FROM ED. ORDERS RECEIVED. CONTINUE TO MONITOR.
--- NOTE | 2020-01-14 04:14 | NUR ---
SHIFT SUMMARY PT HAS HAD NO ACUTE CHANGES IN CONDITION SINCE ADMISSION. SLEEPING T/O MUCH OF THE NIGHT, YELLS OUT OCCASIONALLY. NO ADVERSE EFFECTS NOTED FROM INCREASED SEROQUEL DOSAGE. PT REMAINS RE-DIRECTABLE. VS REVIEWED, BP IMPROVED, OTHER VS STABLE. DENIES NEEDS AT THIS TIME. CALL LIGHT, POSSESSIONS IN REACH, BED IN LOWEST POSITION WITH ALARMS ON, SIDERAILS UP X3. WILL CONTINUE TO MONITOR AND PROVIDE CARE NEEDED UNTIL DAY RN ASSUMES CARE.
--- NOTE | 2020-01-14 09:10 | NUR ---
DISHARGE PT DISCHARGED TO [facility] VIA W/C WITH [facility]. ATTEMPTED TO CALL REPORT TO RECEIVING RN, PHONE NOT ANSWERED, WILL BE AVAILABLE TO ANSWER QUESTIONS NEEDED.
== END 2020-01-14 09:12 ==
LOC: ER 11:21 → MEDS 21:02
PROVIDERS: Emergency Medicine; ADMIT Hospitalist
DX: F23 Brief psychotic disorder (principal); F41.8 Other specified anxiety disorders; F41.0 Panic disorder [episodic paroxysmal anxiety]; F03.90 Unspecified dementia, unspecified severity, without behavioral disturbance, psychotic disturbance, mood disturbance, and anxiety; G93.41 Metabolic encephalopathy; I25.2 Old myocardial infarction; I13.0 Hypertensive heart and chronic kidney disease with heart failure and stage 1 through stage 4 chronic kidney disease, or unspecified chronic kidney disease; I50.32 Chronic diastolic (congestive) heart failure; E11.22 Type 2 diabetes mellitus with diabetic chronic kidney disease; N18.30 Chronic kidney disease, stage 3 unspecified; D63.1 Anemia in chronic kidney disease; H54.8 Legal blindness, as defined in USA; Z88.0 Allergy status to penicillin; Z88.1 Allergy status to other antibiotic agents; Z88.2 Allergy status to sulfonamides; Z88.5 Allergy status to narcotic agent; Z88.6 Allergy status to analgesic agent; Z91.018 Allergy to other foods; Z79.82 Long term (current) use of aspirin; Z79.4 Long term (current) use of insulin; Z79.899 Other long term (current) drug therapy; Z85.41 Personal history of malignant neoplasm of cervix uteri; Z95.5 Presence of coronary angioplasty implant and graft; Z90.49 Acquired absence of other specified parts of digestive tract; Z90.710 Acquired absence of both cervix and uterus; Z89.412 Acquired absence of left great toe; Z87.891 Personal history of nicotine dependence; Z96.0 Presence of urogenital implants; Z23 Encounter for immunization
CPT/HCPCS: 36415; 80047; 82947; 85014; 96372; 99285; A9270-GY; G0378

== ENCOUNTER 2020-01-14 10:48 | Observation (INO) | payer OTHER ==
[~2020-01-14] VITALS: Ht 162.6 cm; Wt 63.5 kg
[~2020-01-14 10:48] MED LIST changes: +Ativan1 MG PO; -BASAGLAR K100 UNIT/5 SC; +QUETIAPINE FUMA50 MG PO; +SEMGLEE PE100 UNIT/1 SC; +SEROQUEL100 MG PO
--- NOTE | 2020-01-14 19:10 | NUR ---
ASSUMED CARE RECEIVED REPORT FROM SHAWNEE ARMSTRONG. ASSUMED CARE OF PT. ASLEEP AT THIS TIME. NO S/S ACUTE DISTRESS NOTED. RESPS EVEN AND UNLABORED. CALL LIGHT, POSSESSIONS IN REACH, BED IN LOWEST POSITION WITH ALARMS ON. WILL CONTINUE TO MONITOR.
--- NOTE | 2020-01-15 00:20 | NUR ---
SPOKE TO DR. MARIE REGARDING PT'S CONTINUOUS YELLING AND CRYING OUT DESPITE ADMINISTRATION OF SCHEDULED ATIVAN AND SEROQUEL. ORDERS RECEIVED. CONTINUE TO MONITOR.
--- NOTE | 2020-01-15 04:06 | NUR ---
SHIFT SUMMARY PT HAS BEEN CRYING OUT ALL T/O NIGHT, SLEPT OCCASIONALLY. PT HAVING MULTIPLE EPISODES OF VISUAL AND AUDITORY HALLUCINATIONS, CALLING OUT RANDOM NAMES OF PEOPLE NOT IN THE ROOM. NO ATTEMPTS AT EXITING BED NOTED. REMINDED PT TO USE HER CALL LIGHT TO MAKE NEEDS KNOWN, NO PROGRESS AT THIS TIME. PT RE-DIRECTABLE BUT FORGETFUL. BP'S STABLE WITH SCHEDULED HYDRALAZINE. PT IN BED AT THIS TIME, CONTINUES TO CRY OUT. CALL LIGHT, POSSESSIONS IN REACH, BED IN LOW POSITION WITH ALARM ON. WILL CONTINUE TO MONITOR AND PROVIDE CARE NEEDED UNTIL DAY RN ASSUMES CARE.
--- NOTE | 2020-01-15 18:31 | NUR ---
PT REMAINS WITH CONFUSION, AUDITORY AND VISUAL HALLUCINATIONS, ALMOST CONTINUOUS YELLING, SCREAMING AND CRYING. 200MG PO SEROQUEL GIVEN THIS MORNING WITH NO OBSERVABLE EFFECT. PT IS A LITTLE QUIETER WHEN SOMEONE IS IN THE ROOM WITH HER, NURSING STAFF SEVERAL TIMES SPENT SOME ONE ON ONE TIME WITH PT. PT'S DAUGHTER VISITED FOR A SHORT TIME THIS AFTERNOON, NO ACUTE CHANGES NOTED THIS SHIFT, WILL CONTINUE TO MONITOR AND REPORT TO ONCOMING RN
--- NOTE | 2020-01-15 19:05 | NUR ---
ASSUMED CARE RECEIVED REPORT FROM SHAWNEE ARMSTRONG. ASSUMED CARE OF PT. CONTINUES TO CRY OUT INTERMITTENTLY, NO APPARENT SIGNS OF DISTRESS NOTED. REMINDED PT TO CALL TO MAKE NEEDS KNOWN, INDICATES UNDERSTANDING, BUT FORGETFUL. PT RESTING IN BED AT THIS TIME. DENIES NEEDS. CALL LIGHT, POSSESSIONS IN REACH. WILL CONTINUE TO MONITOR.
--- NOTE | 2020-01-15 23:52 | NUR ---
SPOKE TO DR. BERGMAN REGARDING PT'S CONTINUOUS YELLING, CRYING OUT. ORDERS RECEIVED. CONTINUE TO MONITOR PT BEHAVIOR.
--- NOTE | 2020-01-16 03:59 | NUR ---
SHIFT SUMMARY PT ASLEEP AT THIS TIME, NO S/S ACUTE DISTRESS NOTED, RESPS EVEN AND UNLABORED. VS STABLE. PT DENIES NEEDS AT THIS TIME. CALL LIGHT, POSSESSIONS IN REACH, BED IN LOWEST POSITION WITH ALARMS ON. WILL CONTINUE TO MONITOR AND PROVIDE CARE NEEDED UNTIL DAY RN ASSUMES CARE.
[2020-01-16 13:12] LABS: Hematocrit 27.4 % (33.0-51.0); Hemoglobin 8.4 g/dL (11.5-16.0)
[2020-01-16 13:41] LABS: Bun/Creatinine Ratio 25.2 (12.0-20.0); Calcium, Blood 7.8 mg/dL (8.5-10.1); Creatinine, Blood 1.55 mg/dL (0.40-1.00); Potassium, Blood 4.1 mmol/L (3.5-5.5)
[2020-01-16 13:42] LABS: Percent Saturation 16.1 % (15.0-50.0)
--- NOTE | 2020-01-16 17:33 | NUR ---
SHIFT SUMMARY PT SLEPT ALL DAY TODAY; PT HAD AN EPISODE OF LOW BG- PT RECEIVED D50 THIS MORNING. BG IS NOW 80S; PT ASYMPTOMATIC; VSS. PT WAS DROWSY AND SLEEPY THIS MORNING AND WAS NOT ABLE TO GIVE MORNING MEDS DUE TO HIGH RISK OF ASPIRATION. I WAS ABLE TO GIVE THE HTN MEDICATION THIS LATE AFTERNOON. NO OTHER ACUTE CHANGES AT THIS SHIFT; DAUGHTER AT BEDSIDE; AND PT IS MORE AWAKE NOW AND EATING. AWAITS FOR PLACEMENT- SEE CALCINER OPERATOR NOTES. BED IS IN THE LOWEST POSITION; CALL LIGHT AND POSSESSIONS WITHIN REACH AND WILL CONT MONITOR.
--- NOTE | 2020-01-17 05:22 | NUR ---
SHIFT SUMMARY NO ACUTE CHANGES THIS SHIFT. PT SLEPT WELL T/O NIGHT WITH ONLY 2-3 EPISODES OF CRYING OUT. WHEN ASKED WHY SHE WAS CRYING PT STATED "I DON'T KNOW." PT IS LAYING IN BED WITH EYES CLOSED, EVEN AND UNLABORED RESPIRATIONS. BED IS IN LOWERED POSITION WITH BED ALARM ON. CALL LIGHT AND PERSONAL ITEMS WITHIN REACH. NO APPARENT NEEDS OR DISTRESS AT THIS TIME, WILL CONTINUE TO MONITOR UNTIL REPORT GIVEN TO DAY RN.
--- NOTE | 2020-01-17 16:19 | NUR ---
SHIFT SUMMARY NO OTHER ACUTE CHANGES AT THIS SHIFT. PT SLEPT MOST OF THE DAY, BUT WOKE UP TO EAT. DR DING CAME BY TO TALK TO THE PT; BUT PT WAS ASLEEP. CARO FROM [facility] CAME BY AND TALKED TO THE PT, BUT PT STATED THAT SHE WANTS TO GO BACK TO [place]. BED IS IN THE LOWEST POSITION; CALL LIGHTS WITHIN REACH AND WILL CONT MONITOR.
--- NOTE | 2020-01-18 03:38 | NUR ---
SHIFT SUMMARY PT MOOD IS LABILE. SHE IS VERY TEARFUL MOST OF THE TIME, AND IT SEEMS THAT IS OUT OF FRUSTRATION BECAUSE SHE IS UNABLE TO COMMUNICATE HER NEEDS AT TIMES. PT A/O TO SELF AND IS UNABLE TO ANSWER ANY OF MY QUESTIONS APPROPRIATELY. PT HAS RESTED MOST OF THE NIGHT AND HAS NOT ATTEMPTED TO GET OOB. SHE DENIES PAIN. APPETITE GOOD. PT REMAINS HYPERTENSIVE. PO HYDRALYZINE SCHEDULED Q6HR. NO ACUTE CHANGES IN ASSESSMENT. BED IN LOWEST POSITION, CALL LIGHT WITHIN REACH.
--- NOTE | 2020-01-18 13:26 | NUR ---
Pt. is tired and needs some rest allowed to do so
--- NOTE | 2020-01-18 15:07 | NUR ---
PT COMPLAINS OF HEADACHE. NO PAIN MEDICATION ON EMAR AT THIS TIME R/T ALLERGIES. PT STATES THAT SHE TAKES ASPIRIN AT HOME AND REFUSES ICE PACK AT THIS TIME
--- NOTE | 2020-01-18 18:08 | NUR ---
SHIFT SUMMARY PT AXO TO SELF AND CITY. PT CRYING LOUDLY THROUGHOUT THE SHIFT WHILE AWAKE. HTN NOTED WITH AFTERNOON VS, MEDICATED PER EMAR. PHYSICAL THERAPY ASSESSED, SEE NOTE. PT NEEDS REMINDERS WHEN PIVOTING. PT COMPLAINED OF HEADACHE, SEE PRIOR NOTE. PT NO LONGER COMPLAINING OF PAIN. NO IV IN PLACE AT THIS TIME. BED IN LOW POSITION, CALL LIGHT WITHIN REACH. BED ALARM ON.
--- NOTE | 2020-01-19 18:55 | NUR ---
SHIFT SUMMARY PT VERY SLEEPY TODAY. INTERMITTENT CRYING AND MOANING TODAY. NORMAL BEHAVIOR, PER JUNIOR SALES REPRESENTATIVE. PT DIET CHANGED TO FINGER FOODS FOR CONVENIENCE DUE TO PATIENT BLINDNESS. MUCH IMPROVED, SELF FEEDING NOW. NO IV ACCESS APPROVED BY PROVIDER AND ORDER PLACED. CURRENT PLAN LOOKING FOR PLACEMENT. PT DENIES PAIN OR OTHER NEEDS AT THIS TIME. VITALS REVIEWED. CALL LIGHT IN REACH.
--- NOTE | 2020-01-20 07:51 | NUR ---
01/20/20 0630 PT ON ANTI-HYPERTENSIVE MEDS Q 6 HOURS. BP FLUCTUATES. DENIES ANY DISCOMFORT. SLEPT ON AND OFF AND HAS PERIODS OF CRYING BUT IS UNABLE TO STATE WHY SHE IS CRYING. HISTORY OF MENTAL ILLNESS. MENDOZA PATENT.
[2020-01-20 08:54] LABS: Hematocrit 24.2 % (33.0-51.0); Hemoglobin 7.5 g/dL (11.5-16.0); Mean Corpuscular HGB 26.7 pg (26.0-34.0); Mean Corpuscular Volume 86 fL (80-100); Mean Platelet Volume 10.4 fL (9.1-12.4); Platelet Count 288 K/mm3 (150-400); RDW Coefficient Variation 16.8 % (11.7-14.2); Red Blood Cell Count 2.81 M/mm3 (3.80-5.20); White Blood Cell Count 14.87 K/mm3 (4.00-11.30)
[2020-01-20 09:04] LABS: Bun/Creatinine Ratio 24.7 (12.0-20.0); Calcium, Blood 7.9 mg/dL (8.5-10.1); Creatinine, Blood 1.9 mg/dL (0.40-1.00); Potassium, Blood 3.9 mmol/L (3.5-5.5)
--- NOTE | 2020-01-20 13:12 | NUR ---
Pt. is in bed resting seems to be weak gave encouragement and offered prayers.
--- NOTE | 2020-01-20 17:48 | NUR ---
SHIFT SUMMARY. ALERT, ORIENTATED TO SELF AND FAMILY. PT COTINUES WITH FREQUENT BOUGHTS OF CRYING OUT, GENERALLY PT REPORTS THAT SHE REQUIRES ASSISTANCE WITH ADLS OR REQUESTING FOOD OR DRINK DURING THOSE TIMES, ALTHOUGH SHE DOES AT TIMES REPORT CRYING IS R/T THE RECENT SEPERATION FROM HER OR THAT SHE FORGOT WHERE SHE WAS. PT OFTEN STOPS CYRING OUT FOR A SHORT PERIOD OF TIME AFTER REASSURANCE OR MEETING HER OTHER NEEDS. PT DENIES PAIN, SOB, N/V. DAUGHTER IN TO VISIT THIS EVENING, PT'S CRYING APPEARS TO OF INCREASED WHILE HER DAUGHTER IS VISITING. NO OTHER CHANGES OR CONCERNS.
--- NOTE | 2020-01-20 19:30 | NUR ---
RESTING QUIETLY DURING NURSE ROUNDING. CALL LIGHT IN REACH. NO NOTED ACUTE DISTRESS.
--- NOTE | 2020-01-21 04:11 | NUR ---
SHIFT SUMMARY OCCASIONAL CALLING OUT, REQUIRING BOTH VERBAL REASSURANCE AND MEDICATIONS FOR ANXIETY/AGITATION. CURRENTLY RESTING QUIETLY WITHOUT NOTED ACUTE DISTRESS. CALL LIGHT IN REACH.
--- NOTE | 2020-01-21 17:12 | NUR ---
SHIFT SUMMARY PT A/O X1 AND CONFUSED THIS SHIFT. PT CRIES OUT CONTINUOUSLY DESPITE REASSURANCE. PT HAVING VISUAL AND AUDITORY HALLUCINATIONS. 1400 MEDICATIONS WERE NOT GIVEN DUE TO PATIENT BEHAVIOR. 2 PERSON MAX ASSIST WHEN UP. CHRONIC MENDOZA PATENT AND DRAINING. SEDIMENT NOTED IN THE MENDOZA. VSS; WCTM.
--- NOTE | 2020-01-21 19:14 | NUR ---
AWAKE WATCHING TV IN BED. DENIED PAIN AND LOSS OF FEELING. CALL LIGHT IN REACH
--- NOTE | 2020-01-21 19:17 | NUR ---
AWAKE IN BED, WAS CALLING OUT, BUT SEEMED TO QUIET WHEN NURSE CAME INTO ROOM. WILL CONTINUE TO PROVIDE ENCOURAGEMENT AND MEDICATIONS PER MAR IF NEEDED. CALL LIGHT IN REACH AND HOB ELEVATED FOR COMFORT.
--- NOTE | 2020-01-22 04:25 | NUR ---
ALTHOUGH PT HAS BEEN RESTING QUIETLY MOST OF THE SHIFT, HAS MADE A FEW OUTBURSTS OF YELLING/CALLING OUT FOR ASSISTANCE. ONE EPISODE WAS BECAUSE SHE WANTED NURSE TO COVER HER BACK UP, SHE HAD TAKEN OFF HER BLANKET. CALL LIGHT IN REACH. SEE MAR FOR DETAILS WHEN MEDICATED. CURRENTLY RESTING QUIETLY.
--- NOTE | 2020-01-22 16:42 | NUR ---
SHIFT SUMMARY PT A/O X2 AND CONFUSED. PT HAS BEEN RESTING QUIETLY FOR MOST OF THE SHIFT. HOWEVER, SHE CONTINUES TO HAVE OUT BURSTS OF YELLING OUT/CALLING OUT OFTEN. REDIRECTABLE BUT VERY CONFUSED/FORGETFUL. OFTEN HAS HALLUCINATIONS. MEDICATED W/SEROQUEL Q4 PRN W/GOOD EFFECT. CHRONIC MENDOZA AND UTI'S; MENDOZA PATENT AND DRAINING. MEAL SET UP AND FEEDER. VSS; CALL LIGHT IN REACH; WCTM.
--- NOTE | 2020-01-22 21:03 | NUR ---
SCREAMING. UPON ARRIVAL AT ROOM, PT VOICED SHE WAS SCARED OF "GHOST'. REASSURANCE GIVEN, WAITING FOR HS MEDICATIONS TO TAKE EFFECT AND PT GET SOME SLEEP. OB ELEVATED. CALL LIGHT IN HAND, ENCOURAGED TO USE CALL LIGHT. REPOSITIONED. CLEAN AND DRY. WILL CONTINUE TO MONITOR
--- NOTE | 2020-01-23 03:04 | NUR ---
SHIFT SUMMARY HAS BEEN CALLING/SCREAMING OUT AT INTERVALS THIS SHIFT. EACH TIME NURSE COMES INTO ROOM TO SEE THE REASON, PT VOICED DEANDS TO KEEP DOOR OPEN, REDIRECTION TO PT ACKNOWLEDGEMENT THAT DOOR IS OPEN AND HAS NOT BEEN CLOSED SEEMS TO DEFLECT HER ANGER AND FEAR, BUT THEN A WHILE LATER CRIES OUT AGAIN. NUMEROUS ATTEMPTS TO REDIRECT AND REASSURE PT. MEDICATED FOR REST - SEE MAR FOR DETAILS. CURRENTLY IS RESTING QUIETLY. CALL LIGHT IN REACH. NO NOTED DISTRESS AT THIS TIME
[2020-01-23 05:11] LABS: Hematocrit 26.1 % (33.0-51.0); Hemoglobin 8.1 g/dL (11.5-16.0); Mean Corpuscular HGB 26.7 pg (26.0-34.0); Mean Corpuscular Volume 86 fL (80-100); Mean Platelet Volume 10.5 fL (9.1-12.4); Platelet Count 295 K/mm3 (150-400); RDW Coefficient Variation 16.2 % (11.7-14.2); RDW Standard Deviation 51.6 fL (35.1-46.3); Red Blood Cell Count 3.03 M/mm3 (3.80-5.20); White Blood Cell Count 12.11 K/mm3 (4.00-11.30)
[2020-01-23 05:44] LABS: Albumin, Blood 2.2 g/dL (3.4-5.0); Anion Gap 10 mmol/L (6-16); Blood Urea Nitrogen 49 mg/dL (8-24); Bun/Creatinine Ratio 27.8 (12.0-20.0); CO2, Blood 21 mmol/L (21-32); Calcium, Blood 8.7 mg/dL (8.5-10.1); Chloride, Blood 113 mmol/L (98-108); Creatinine, Blood 1.76 mg/dL (0.40-1.00); Glomerular Filtration Rate 32 (60-); Glucose, Blood 205 mg/dL (70-99); Phosphorus, Blood 5.2 mg/dL (2.5-4.9); Potassium, Blood 3.9 mmol/L (3.5-5.5); Sodium, Blood 144 mmol/L (136-145)
--- NOTE | 2020-01-23 14:21 | NUR ---
Pt. is in bed resting and is doing fine
--- NOTE | 2020-01-23 15:46 | NUR ---
PATIENT CONTINUES AT HER BASELINE OF YELLING OUT FOR NEEDS. STAFF ATTEMPT TO REDIRECT PATIENT AND SHE IS MILDLY REDIRECTABLE FOR A SHORT PERIOD OF TIME, BUT QUICKLY FORGETS. NO INDICATION OF PAIN OR DISCOMFORT NOTED. NO ACUTE CHANGES TO REPORT AT THIS TIME. WILL CONTINUE TO MONITOR AND PROVIDE CARE NEEDED.
--- NOTE | 2020-01-24 06:18 | NUR ---
SHIFT SUMMARY AOX2-PLACE/SELF, HOWEVER CAN'T STATE WHERE IN [place]. FOLLOWS SIMPLE DIRECTIONS. YELLS OUT FREQUENTLY WHILE AWAKE. FEARFUL, ANXIOUS, LABILE, TEARFUL. STATES SHE IS SCARED OF "THE MAN IN THE ROOM" "THE FIREMEN" & MANY OTHER DIFFERENT VISUAL HALLUCINATIONS. REASSURED ONLY STAFF & PT IN ROOM. EASILY REASSURED & REDIRECTED BUT FORGETS QUICKLY. MEDICATED c SCHEDULED 200MG SEROQUEL & PT STILL YELLING OUT, MEDICATED 1X c 50MG PRN SEROQUEL & ONCE MED TOOK EFFECT PT ABLE TO GET REST. HELD MIDNIGHT HYDRALAZINE BECAUSE PT WAS FINALLY ABLE TO GET SOME REST & SHE WAS GIVEN CLONIDINE c HS MEDS. HOWEVER THIS AM BP ELEVATED @186/86, GAVE SCHEDULED 10MG HYDRALAZINE & WILL RECHECK BP. REST OF VITALS ARE STABLE. KELLY IS PATENT & DRAINING. CALL LIGHT IN REACH & BED ALARM IN PLACE FOR SAFETY. WCTM.
[2020-01-24 14:34] LABS: Percent Saturation 11.6 % (15.0-50.0)
--- NOTE | 2020-01-24 15:17 | NUR ---
Pt. is lying in bed resting and is doing fine encouraged pt. and prayed for her.
--- NOTE | 2020-01-24 18:16 | NUR ---
NO ACUTE CHANGES . PT APPEARED MORE STABLE THIS SHIFT WITH LESS CRYING OUT AND ABLETO REDIRECT EASIER. UP IN CHAIR FOR MEDS.
--- NOTE | 2020-01-25 05:39 | NUR ---
SHIFT SUMMARY AOX1-SELF ONLY & FOLLOW DIRECTIONS. AT BEGINNING OF SHIFT PT WAS CRYING OUT FREQUENTLY, WITHIN EVERY 5 MIN I LEFT ROOM SHE WOULD START YELLING OUT. WHEN ASKED WHY SHE WAS YELLING, PT STATED "I WANT YOU TO STAY IN HERE c ME, I GET LONELY," EDUCATED PT ON ROUNDING. PT STILL CALLED OUT. MEDICATED c PRN SEROQUEL & NEW SCHEDULED MED NEUDEXTA. PT CALMED DOWN BRIEFLY UNTIL ROUGHLY AROUND MIDNIGHT WHEN PT STARTED CRYING/YELLING OUT, MEDICATED c SCHEDULED SEROQUEL. OVERALL PT HAS BEEN EASIER TO REDIRECT & HAS CRIED/YELLED OUT LESS SINCE KARISSA MEDS. VSS. NO S/S PAIN, N/V OR DYSPNEA. MENDOZA PATENT & DRAINING. CALL LIGHT & BED ALARM IN PLACE.
--- NOTE | 2020-01-25 12:09 | NUR ---
Pt. in be and needs rest and sleep ,no visitore needed to awake pt.up.
--- NOTE | 2020-01-25 13:19 | NUR ---
PT SLEPT ALL MORNING AND WOKE FOR LUNCH. SHE HAD EPISODES OF CRYING OUT DURING LUNCH BUT WAS EASILY REDIRECTABLE. SHE WAS ABLE TO BE UP IN CHAIR WITH STAFF WHILE EATING. PT ASKED TO BE PUT BACK IN BED AND WAS ALBE TO REFRAIN FROM EXCESSIVE CRYING OUT. SHE WOULD ATTEMPT TO BUT WHEN REMINDED TO STOP YELLING WAS COMPLIANT. SHE WAS CALM AND QUICK TO RETURN TO SLEEP.
--- NOTE | 2020-01-25 16:44 | NUR ---
NO ACUTE CHANGES. PT HAS SLEPT MOST OF SHIFT. SHE WOKE FOR LUNCH. PT HAS SLEPT REMAINDER OF THE SHIFT. CALL LIGHT WITHIN REACH.
--- NOTE | 2020-01-26 04:18 | NUR ---
SHIFT SUMMARY ASSUMED CARE OF PT AT 1900. PT IS A/O TO SELF, FAMILY, AND SURROUNDINGS WITH BITS OF FORGETFULNESS. PT IS LEGALLY BLIND. PT WAS ASLEEP AT THE BEGINNING OF THE SHIFT BU TAWOKE AND SCREAMED OUT MULTIPLE TIMES, WHEN ASKING THE PATIENT WHAT WAS WRONG SHE WOULD SAY THAT SHE WAS SCARED OR WOULD ASK FOR FOOD OR STATED SHE DIDNT KNOW. PT WOULD CRY BUT NO TEARS WOULD COME FROM HER EYES. PT SEROQUEL WAS HELD DUE TO DOCTORS REQUEST TO SEE IF ALTERNATIVE MEDICATIONS WOULD WORK AND TO GIVE SEROQUEL IF PT DIDNT CALM DOWN BUT WAS GIVEN THE DOSE LATER DUE TO PATIENT FRANTIC BEHAVIOR, PT THEN SLEPT FOR AN HOUR AND THEN CALLED OUT AGAIN, PT GIVEN ADDITIONAL 50MG DOSE AND WAS QUIET T/O THE NIGHT. LUNG SOUNDS CLEAR, HEART SOUNDS REGULAR, PT HAS CATHETER, DRAINING CLOUDY URINE. PT RECEIVED MULTIPLE SNACKS/DRINKS T/O THE NIGHT. CALL LIGHT IN REACH, BED IN LOWEST POSTION, BED ALARM ON.
--- NOTE | 2020-01-26 18:30 | NUR ---
SHIFT SUMMARY- PT IS ALERT. SHE OFTEN CALLS OUT. SHE SLEPT FOR MOST OF THE FIRST HALF OF THIS SHIFT. SHE HAS SUDDEN OUTBURSTS AND IS CONCERNED ABOUT THE DOORS BEING CLOSED, CALMS DOWN WHEN REASSURED THAT THEY ARE OPEN. SHE IS EATING AND DRINKING WELL. SHE SLEPT THOUGH LUNCH. MEDICATION WERE ADJUSTED TO MINIMIZE INTERRUPTIONS TO HER SLEEP. HER BLOOD SUGAR LEVELS HAVE BEEN ELEVATED THIS AFTERNOON. SHE RECIEVED A BEDBATH TODAY. BENY WALLS EVALUATED BUT WILL NOT ACCEPT HER DUE TO HER NEEDING A TWO PERSON TRANSFER.
--- NOTE | 2020-01-27 04:04 | NUR ---
SHIFT SUMMARY ASSUMED CARE OF PT AT 1900. PT IS MORECONFUSED TODAY. PT THOUGHT THAT SHE WAS IN A CARE AND SHE WAS BEING DRIVEN SOMEWHERE. PT RECEIVED NIGHTLY SEROQUEL BUT NEEDED ONE PRN DOSE DUE TO THIS HALLUCINATION. PT WAS MORE FEARFUL THAN YESTERDAY, SHES STATED ONCE THAT SHE THOUGHT SOMEONE WAS GOING TO COME IN THE ROOM AND HURT HER. PT WOULD CALL OUT FOR FAMILY MEMBERS AND ASKED WHERE HE MOTHER WAS. AFTER MUCH REASSURANCE, PT SLEPT FROM 2300 AND ON. CATHETER IS DRAINING CLOUDY URINE, THE BAG HAS LOTS OF SEDIMENT IN IT. CALL LIGHT IN REACH, BED IN LOWEST POSTION, WILL CONTINUE TO MONITOR.
--- NOTE | 2020-01-27 08:40 | NUR ---
PATIENT ABLE TO TELL ME WHERE SHE IS AND THAT SHE FEELS WORSE THAN YESTERDAY. SHE STATES HER VISION IS WORSE AND SHE DOES NOT WANT TO BE HERE ANY MORE. SHE HAS HAD NO OUTBURST TODAY BUT IS HAVING A BIT OF EMOTIONAL LABILITY. SHE COMPLAINS THAT HER FEET ARE COLD AND THAT SHE FEELS LIKE SHE CANNOT SEE THEM.
--- NOTE | 2020-01-27 17:15 | NUR ---
shift summary patient is pleasant, alert to self. still having some outbursts. she stated "I just want this medication to help today" she has been much more pleasant. she has focused on trying to be more in control of her emotions. she states that she feels like she is getting better. she is very concerned that she is in the dark and that the door is closed. will continue to monitor for any concerns. denies any pain or discomfort. her catheter bag was changed today due to build up of sediment in her urine.
--- NOTE | 2020-01-28 04:25 | NUR ---
PEAR PICKER SUMMARY PT HAD MULTIPLE EPISODES OF YELLING OUT AT THE START OF THE NIGHT HOWEVER AFTER RECIEVING HER NIGHTTIME DOSE OF SEROQUEL SHE CALMED DOWN AND SLEPT FOR MOST OF THE NIGHT. NO NEW S/S DURING THIS SHIFT. PT IS VERY PLEASANT AND IS EASILY REDIRECTABLE.
--- NOTE | 2020-01-29 06:17 | NUR ---
01/29/20 0600 PT SLEPT WELL AFTER PRN SEROQUEL GIVEN EARLIER. WHEN SHE WAKES UP, SHE YELLS LOUDLY FOR ITEMS INSTEAD OF USING THE CALL LIGHT. REMINDED TO USE CALL LIGHT.
--- NOTE | 2020-01-29 15:47 | NUR ---
SHIFT SUMMARY PT SLEEPING AT START OF SHIFT, DID NOT WAKE UP FOR BREAKFAST. AM MEDS GIVEN LATE D/T PT NOT WANTING TO WAKE UP EARLY. PT WOKE FOR LUNCH AND ASSISTED TO CHAIR AT BS; 2P MAX ASSIST, PT DOES NOT HELP AT ALL. BP REMAINS ELEVATED, EVEN WITH BP MEDS GIVEN; SEE CHART. BP MEDS CHANGED BY DR MARIE AND PRN BP MED GIVEN. PT UP TO CHAIR FOR A WHILE BEFORE GOING BACK TO BED. PT CONTINUES TO WAIT PLACEMENT PER REPORT, ON Jan, TO [facility]. NO C/O PAIN. NO S/SX OF DISTRESS NOTED OR REPORTED. BED ALARM ON FOR SAFETY. CALL LT IN REACH.
--- NOTE | 2020-01-30 13:31 | NUR ---
Pt. is lying in bed resting, pt. reports to be doing better today encouraged pt, offered prayer and spiritual supports.
--- NOTE | 2020-01-30 16:03 | NUR ---
URINE APPEARS CLOUDY/MILKY WITH SEDIMENT. SEARCHED FOR DOCUMENTATION REGARDING LAST MENDOZA CHANGE, ACCORDING TO DOCUMENTATION THE MENDOZA WAS LAST CHANGED ON 12/30/19. DISCUSSED THIS W/ CYNTHIA AND SHE ORDERED A NEW MENDOZA BE PLACED TODAY AND A URINALYSIS BE SENT PER PROTOCOL.
--- NOTE | 2020-01-30 17:01 | NUR ---
SHIFT SUMMARY PT A&O TO SELF ONLY, PERIODICAL MOMENTS OF EXTREME CONFUSION AND ANXIETY. PT WOULD SCREAM FROM ROOM UNTIL SOMEONE WOULD COME IN. HOWEVER, FOR MOST OF THE DAY SHE WOULD REST. PT HAD POOR APETITE T/O DAY, HARDLY ATE OR DRANK ANYTHING. URINE WAS NOTED TO BE CLOUDY/MILKY WITH SEDIMENT IN CATHETER BAG. ACCORDING TO DOCUMENTATION, THE MENDOZA HAS NOT BEEN CHANGED SINCE 12/30/19. CALLED CYNTHIA AND SHE PROVIDED A TELEPHONE ORDER TO CHANGE MENDOZA AND SEND A URINALYSIS. PT ALSO HAD A BM TODAY W/O THE NEED OF MEDICATION, HOWEVER THIS IS HER FIST BM SINCE 01/22/20.
--- NOTE | 2020-01-30 17:23 | NUR ---
PT BLOOD GLUCOSE NOTED TO BE 365 THIS EVENING, SPOKE WITH DR MARIE WHO REPORTED FOR PT TO CONTINUE WITH BEDTIME LANTUS FOR NOW AND WILL CONTINUE TO MONITOR.
[2020-01-30 18:24] LABS: Source, Urine Catheter
[2020-01-30 18:29] LABS: Appearance, Urine Hazy (Clear); Bilirubin, Urine Neg (Neg); Blood, Urine 3+ (Neg); Color, Urine Yellow (P-Yellow); Glucose Qualitative, Urine 4+ (Neg); Ketones, Urine Neg (Neg); Leukocyte Esterase, Urine 3+ (Neg); Nitrite, Urine Neg (Neg); Protein, Urine 4+ (Neg); Specific Gravity, Urine 1.015 (1.003-1.022); Urobilinogen, Urine NORM (Normal)
[2020-01-30 18:43] LABS: Amorphous Light (0-Heavy); Bacteria Many /hpf; Mucus Light (0-Heavy); Squamous Epithelial Cells Few /hpf (Few); Yeast/Fungi Urine Mod /hpf
--- NOTE | 2020-01-31 07:18 | NUR ---
54 year old Female continues confused to self & surroundings. Less anxious decreased yelling screaming and decreased hysteria. Blind needs extensive assist with ADLS bed mobility & toileting. Reid cath was changed on day shift yesterday & urine less milky but still has sediment & intermittant cloudiness. No PRN antipsychotic needed. cooperative with rx minimal to no oral intake this 12 hour shift. continues to need placement for safe dc plan.
--- NOTE | 2020-01-31 10:52 | NUR ---
CALLED TOÑA @ APPROX [address] MARIE. CYNTHIA WANTED TOÑA TO REVIEW THE MEDICATIONS PRESCRIBED BY . TOÑA STATED HE WOULD CALL CYNTHIA IN REGARDS TO THESE MEDICATIONS AND TALK TO HER HIMSELF.
--- NOTE | 2020-01-31 15:01 | NUR ---
Pt. in bed resting not much change prayed for her and encouraged pt.
--- NOTE | 2020-01-31 16:47 | NUR ---
SHIFT SUMMARY NO ACUTE CHANGES T/O SHIFT, A&O TO SELF ONLY. PT WAS MORE CALM TODAY THAN PRIOR SHIFT. SHE DID NOT HAVE ANY EPISODES OF CRYING OR YELLING. PT MAINLY SLEPT TODAY. PT HAD MEETING WITH [facility] TODAY REGARDING PLACEMENT. DR DING ADJUSTED HER DELSYM MEDICATIONS TO 10 MG INSTEAD OF 20 MG BID. WILL REPORT TO UNCOMING NURSE. PT IS CURRENTLY LYING IN BED WAITING FOR DINNER.
--- NOTE | 2020-01-31 19:47 | NUR ---
PT reported to have good day with minimal screaming by day RN but starting at shift change she was screaming & yelling. She was incontient of stool & attends changed repositioned & seroquel 75 mg & other rx given orally & spent time with PT. Cooperative with med crushed in applesauce or liquid meds. Currently quiet after around 45 minutes of intermittant screaming.
--- NOTE | 2020-01-31 19:54 | NUR ---
late entry for 01/31/2020 0645. Shift summary. PT with no major episodes of psychotic screaming this shift. She was cooperative with liquid or crushed meds. She had minimal oral intake this shift. Slept mostof shift. Does not use call stafford. Dislikes lights dimmed. Communicated with staff alternating sensical speech rapid & pressured & shouts demands repeatedly. Room air VSS. Blood glucose elevated despite scheduled semglee dose. BG in 300's at HS.
--- NOTE | 2020-02-01 05:07 | NUR ---
PT resting quietly after seroquel 50 mg po PRN given. Slept rest of shift with no further screaming. UA positive C & S pending final results.
--- NOTE | 2020-02-01 07:00 | NUR ---
ASSUMED CARE OF PT- BEDSIDE REPORT COMPLETED WITH NIGHT RN SALENA. PER REPORT PT WAS CALLING OUT AND SCREAMING LAST NIGHT AT THE START OF THE SHIFT. PT MEDICATED WITH PRN SEROQUEL AND SHE CALMED AND SLEPT FOR THE REMAINDER OF THE SHIFT. PT APPEARS RELAXED AND TO BE RESTING COMFORTABLY AT SHIFT CHANGE. NO S&S OF DISTRESS.
--- NOTE | 2020-02-01 13:21 | NUR ---
Pt. is lying in bed sleeping did not wake pt. up but offered prayers for pt. is silence
--- NOTE | 2020-02-01 14:15 | NUR ---
PT WOKE FROM AT [facility]AP AND BEGAN SCREAMING LOUDLY, SHE HAS BEEN CALM T/O THE DAY UNTIL THIS POINT. PT WAS INCONSOLABLE, ATTEMPTED TO REDIRECT, DISTRACTION, ATTEMPTED TO INSTRUCT THE PT IN CONTROLLED BREATHING THE MOMENT INSTRUCTION STOPPED THE PT WOULD SCREAM AGAIN. OFFERED PO MEDICATION (SEROQUEL) PT WAS WILLING TO TAKE IT. PT DECLINED TO EAT LUNCH. MEDICATED PRN AND WITHIN 30-45 MINUTES THE PT WAS SITTING QUIETLY, WILLING TO SPEAK TO STAFF IN A NORMAL TONE, NO LONGER LOOKING COMPLETELY PANICKED AND TRYING TO CLIMB OUT OF BED.
--- NOTE | 2020-02-01 16:13 | NUR ---
CALLED DR MARIE- PT BG WAS HIGH THIS MORNING THE PT RECIEVED LANTUS, AT LUNCH IT WAS STILL HIGH BUT THE PT DECLINED TO EAT. THIS EVENING IT IS IN THE 400'S. RECIEVED ORDER FOR SS INSULIN MED SS WITH MEALS.
--- NOTE | 2020-02-01 17:21 | NUR ---
SHIFT SUMMARY- PT ALERT AND ORIENTED TO SELF. PT IN BED CALL LIGHT IN REACH. STARTED SS INSULIN THIS EVENING PT BG WAS IN THE 400'S. PT DECLINED LUNCH AND ONLY ATE A FEW BITES OF DINNER. PT DID RECIEVE 12 UNITS OF INSULIN THIS EVENING PER MED SS. PT HAS BEEN SLEEPING QUITE A BIT TODAY, BUT WITH THE EXCEPTION OF ONE EVENT THIS AFTERNOON (SEE PREV NOTES FOR DETAILS) WHEN SHE IS AWAKE THE PT HAS BEEN CALM. THIS EVENING SHE CRIED OUT A BIT AND REFUSED HER DINNER BUT SHE WAS CONSOLEABLE AND REDIRECTABLE. PT HAD A LARGE SOFT BM THIS EVENING, INCONTINENT, SHE WAS CHANGED AND SULEMAN CARE WAS PERFORMED. PT HAS A RED SPOT ON HER COCCYX THAT DOES NOT SEEM TO BE BLANCHING, WILL ATTEMPT TO REPOSITION PT SHE WILL TOLLERATE. WILL PASS ALL OF THIS ON TO NIGHT RN IN BEDSIDE REPORT. PT IN BED CALL LIGHT IN [facility], SHE DOES NOT CALL APPROPRIATELY, BED ALARM FOR SAFETY.
--- NOTE | 2020-02-02 03:53 | NUR ---
SEED PACKER SUMMARY PT HAD SEVERAL EPISODES OF YELLING OUT DESPITE HER BEDTIME DOSE OF SEROQUEL BUT AFTER A PRN DOSE OF SEROQUEL THE PT CALMED DOWN. I STOOD IN PT'S ROOM FOR 30 PLUS MINUTES CHARTING ON THE COMPUTER MY PRESENCE BROUHT HER COMFORT. PT WAS ABLE TO FALL ASLEEP AND HAS RESTED COMFORTABLY FOR MOST OF THE NIGHT WITH THE CALL LIGHT WITHIN REACH. TM.
--- NOTE | 2020-02-02 18:02 | NUR ---
SHIFT SUMMARY- PT ALERT TO SELF, CAN NOT STATE HER BIRTHDAY. PT NEEDS LOTS OF ENCOURAGEMENT TO DO THINGS FOR HERSELF. SHE WILL START TO CRY BECAUSE SHE WANTS SOMETHING THEN STAFF WILL TELL HER WHERE IT IS, THE PT WILL SAY I CANT SEE IT, THEN STAFF WILL ENCOURAGE HER TO REACH OUT AND FIND IT AND THEN SHE WILL. SHE WILL STOP CRYING. PT HAS BEEN VERY RELAXED TODAY NOT REQUIRING ANY PRN MEDICATION FOR HER ANXIETY. PT CONSOLABLE AND REDIRECTABLE. PT WAS EVALUATED TODAY BY ANJANA FOR POSSIBLE PLACEMENT.
--- NOTE | 2020-02-03 04:18 | NUR ---
SURGICAL INSTRUMENT MECHANIC SUMMARY PT DID VERY WELL TONIGHT WITH ALMOST NO YELLING OUT. PT WAS VERY REDIRECTABLE THIS SHIFT AND HAD LESS ANXIETY OVERALL. NO PRN SEROQUEL WAS NEEDED THIS SHIFT AND THE PT WAS ABLE TO MAKE HER NEEDS KNOWN. WCTM.
--- NOTE | 2020-02-03 17:00 | NUR ---
SHIFT SUMMARY PT A/O X1/SELF ONLY. PT AT TIMES WILL CALL OUT/SCREAM AND EXHIBIT POOR EMOTION REGULATION. PT HAS DONE WELL THIS SHIF AND HAS BEEN RESTING QUIETLY IN BED FOR THE MAJORITY OF THE SHIFT. CHRONIC MENDOZA IN PLACE AND DRAINING TO GRAVITY. VSS; WCTM.
--- NOTE | 2020-02-04 05:29 | NUR ---
SHIFT SUMMARY: VSS. AFEB. AAOX1. DISORIENTED TO TIME, PLACE, AND SITUATION. SLEPT WELL MUCH OF THE NIGHT. YELLS OUT AND CRIES WHILE AWAKE. CONFUSED, FORGETFUL, AND SCARED. DISORIENTED. REORIENTING HELPS SOME. OFTEN TIMES PT STATES SHE DOES NOT KNOW WHY SHE IS CRYING OR YELLING. F/C PATENT AND DRAINING TO GRAVITY. NO ACUTE CONCERNS AT THIS TIME. BED LOW, BED ALARM ON, CALL BUTTON IN REACH.
--- NOTE | 2020-02-04 18:13 | NUR ---
SHIFT SUMMARY PT IS AO TO SELF AND CALLS OUT/CRIES THROUGHOUT SHIFT. PT DENIES PAIN, N/V, SOB. PT IS A HEAVY 2 ASSIST FOR TRANSFERS. PT IS PENDING PLACEMENT UPON DC. PT IS TEARFUL THIS SHIFT UPON WAKING AND THIS KARISSA. VISITOR IN THIS KARISSA. PT IS IN BED, CALL LIGHT IN REACH, BED IN LOW POSITION.
--- NOTE | 2020-02-05 04:39 | NUR ---
SHIFT SUMMARY: VSS. AFEB. AWAKE MORE FREQUENTLY TONIGHT AND CALLING OUT, OCCASIONALLY SCREAMING. PT UNABLE TO EXPLAIN WHY. REPEATED EVERYTHING THIS RN SUGGESTED, SO REASON FOR SCREAMING UNDETERMINED. PT REQUESTING STAFF STAY IN ROOM W/HER AND HOLD HER HAND. EMOTIONS UNREGULATED. NO ACUTE CHANGES AT THIS TIME. WILL CONT TO MONITOR.
--- NOTE | 2020-02-05 17:35 | NUR ---
SHIFT SUMMARY PT IS AO TO SELF. PT DENIES N/V, SOB, PAIN. PT SLEEPING MOST OF SHIFT AND HAD MODERATE APPETITE. PT TEARFUL WHEN AWAKE THIS EVENING, BUT EASY TO CONSOLE. PT REQUIRES FEEDING ASSISTANCE DUE TO BLINDNESS. PT AWAITING PLACEMENT TO [facility] IN [place]. PT IS IN BED, CALL LIGHT IN REACH, BED IN LOW POSITION.
--- NOTE | 2020-02-06 04:54 | NUR ---
SHIFT SUMMARY: VSS. AFEB. AAOX1. SLEPT BETTER TONIGHT. INFREQUENT YELLING AND NO SCREAMING. DENIES PAIN. NO ACUTE CHANGES TONIGHT.
--- NOTE | 2020-02-06 13:43 | NUR ---
Pt. is in bed resting seems to be weak, encouraged and prayed for pt.
--- NOTE | 2020-02-06 18:10 | NUR ---
PT WAITING FOR PLACMENT, ONLY A COUPLE EPISODES OF YELLING OUT TODAY, SHE HAS BEEN PLEASANT AND COOPERATIVE WHEN AWAKE. NO ACUTE CHANGES NOTED THIS SHIFT, WILL CONTINUE TO MONITOR AND REPORT TO ONCOMING RN
--- NOTE | 2020-02-07 03:53 | NUR ---
SHIFT SUMMARY ALERT TO SELF, ANSWERS QUESTIONS APPROPRIATELY. CALLS OUT PERIODICALLY; WITHOUT EXPLAINATION. NO C/O PAIN OR SIGNS/SYMPTOMS. APPEARED TO REST MUCH OF SHIFT. OFFERED SNACK WITH ASSISTANCE; MINIMAL INTAKE. ENCOURAGE TO DRINK FLUIDS. MENDOZA CATHETER SECURED AND DRAINING TO GRAVITY. NO ACUTE CHANGES NOTED OVERNIGHT. VSS/AFEBRILE. BED IN LOWEST POSITION; ALARM ON. CALL LIGHT AND BELONGINGS WITHIN REACH. WCTM. REPORT TO ONCOMING RN.
--- NOTE | 2020-02-07 14:42 | NUR ---
Pt. is lying in bed sleeping prayed for the pt. in silence.
--- NOTE | 2020-02-07 18:17 | NUR ---
NO ACUTE CHANGES NOTED THIS SHIFT, WILL CONTINUE TO MONITOR AND REPORT TO ONCOMING THIS SHIFT
--- NOTE | 2020-02-07 19:05 | NUR ---
ASSUMED CARE RECEIVED REPORT FROM SHAWNEE ARMSTRONG. ASSUMED CARE OF PT. RESTING COMFORTABLY AT THIS TIME, NO S/S ACUTE DISTRESS NOTED, RESPS EVEN AND UNLABORED. DENIES NEEDS. CALL LIGHT, POSSESSIONS IN REACH, WILL CONTINUE TO MONITOR.
--- NOTE | 2020-02-08 04:11 | NUR ---
SHIFT SUMMARY PT HAS HAD NO ACUTE CHANGES IN CONDITION T/O NIGHT, WAS MONITORED EVERY 1-2 HOURS WITH NEEDS MET. VS REVIEWED, STABLE. PT SLEPT T/O NIGHT. DENIES NEEDS AT THIS TIME. CALL LIGHT, POSSESSIONS IN REACH, BED IN LOW POSITION WITH ALARMS ON. WCTM, REPORT OFF TO ONCOMING RN.
--- NOTE | 2020-02-08 15:11 | NUR ---
Pt. lying in bed resting seems to be weak pr ayed for her and blessed abbe.
--- NOTE | 2020-02-08 18:14 | NUR ---
SHIFT SUMMARY PT SLEPT MOST OF THE SHIFT. SHE AWOKE FOR CARE AND REPOSITIONING, BUT IMMEDIATELY ASKS FOR HEAD OF BED TO BE LOWERED AND LIGHTS TURNED OFF. DECLINED SEVERAL TIMES TO GET OOB TO CHAIR. HAD ONE BM INCONTINENT IN BRIEF. MENDOZA DRAINING WITH SEDIMENT, MENDOZA CARE DONE. TOOK MEDS ONE AT A TIME WITH APPLESAUCE. TM
[2020-02-08 19:07] LABS: BASOPHILS ABSOLUTE AUTO 0.08 K/mm3 (0.00-0.23); BASOPHILS PERCENT AUTO 1 % (0-2); EOSINOPHILS ABSOLUTE AUTO 0.31 K/mm3 (0.00-0.68); EOSINOPHILS PERCENT AUTO 3 % (0-6); Hematocrit 29.9 % (33.0-51.0); Hemoglobin 8.9 g/dL (11.5-16.0); IMMATURE GRAN ABSOLUTE AUTO 0.04 K/mm3 (0.00-0.10); IMMATURE GRAN PERCENT AUTO 0 % (0-1); LYMPHOCYTES ABSOLUTE AUTO 1.38 K/mm3 (0.84-5.20); LYMPHOCYTES PERCENT AUTO 11 % (21-46); MONOCYTES ABSOLUTE AUTO 0.67 K/mm3 (0.16-1.47); MONOCYTES PERCENT AUTO 6 % (4-13); Mean Corpuscular HGB 25.6 pg (26.0-34.0); Mean Corpuscular HGB Conc 29.8 g/dL (31.5-36.5); Mean Corpuscular Volume 86 fL (80-100); Mean Platelet Volume 10.6 fL (9.1-12.4); NEUTROPHILS ABSOLUTE AUTO 9.68 K/mm3 (1.96-9.15); NEUTROPHILS PERCENT AUTO 80 % (41-73); Platelet Count 307 K/mm3 (150-400); RDW Coefficient Variation 15.7 % (11.7-14.2); RDW Standard Deviation 49.5 fL (35.1-46.3); Red Blood Cell Count 3.47 M/mm3 (3.80-5.20); White Blood Cell Count 12.16 K/mm3 (4.00-11.30)
[2020-02-08 19:33] LABS: Bun/Creatinine Ratio 30.7 (12.0-20.0); Calcium, Blood 8.5 mg/dL (8.5-10.1); Creatinine, Blood 2.25 mg/dL (0.40-1.00); Potassium, Blood 4.6 mmol/L (3.5-5.5)
[2020-02-08 20:27] LABS: Source, Urine Catheter
[2020-02-08 20:36] LABS: Bilirubin, Urine Neg (Neg); Blood, Urine 2+ (Neg); Glucose Qualitative, Urine 2+ (Neg); Ketones, Urine Neg (Neg); Leukocyte Esterase, Urine 3+ (Neg); Nitrite, Urine Neg (Neg); Protein, Urine 4+ (Neg); Urobilinogen, Urine NORM (Normal)
[2020-02-08 20:42] LABS: Appearance, Urine Hazy (Clear); Color, Urine Yellow (P-Yellow); Red Blood Cells, Urine Rare /hpf (0-2); Squamous Epithelial Cells Rare /hpf (Few); White Blood Cells, Urine TNTC /hpf (0-5)
[2020-02-08 20:43] LABS: Bacteria Mod /hpf
--- NOTE | 2020-02-09 04:24 | NUR ---
SHIFT SUMMARY NO ACUTE CHANGES THIS SHIFT. UA OBTAINED AND SENT TO LAB. PT HAD A FEW EPISODES OF YELLING, SCREAMING AND CALLING OUT. WAS ABLE TO REASSURE AND CONSOLE PT WITH STAFF AT BEDSIDE. MEDICATED WITH SEROQUEL X2. OTHERWISE NO OTHER COMPLAINTS. PT IS LAYING IN BED WITH EYES CLOSED, EVEN AND UNLABORED RESPIRATIONS. BED IN LOWERED POSITION WITH BED ALARM ON. CALL LIGHT AND PERSONAL ITEMS WITHIN REACH. NO APPARENT NEEDS OR DISTRESS AT THIS TIME, WILL CONTINUE TO MONITOR UNTIL REPORT GIVEN TO DAY RN.
--- NOTE | 2020-02-09 19:17 | NUR ---
SHIFT SUMMARY LOUISE SLEPT MOST OF THE DAY. ATTEMPTED TO GET HER UP TO CHAIR FOR MEALS, BUT SHE STRONGLY DECLINED. ATE SMALL AMOUNTS AT EACH MEAL. ONE BM INCONTINENT. MENDOZA INTACT AND DRAINING, MENDOZA CARE DONE. BED ALARM ON, DIDN'T SET IT OFF. REPORT GIVEN TO NIGHT NURSE
--- NOTE | 2020-02-10 04:54 | NUR ---
SHIFT SUMMARY NO ACUTE CHANGES THIS SHIFT. WAS ABLE TO GET PT TO DRINK 2 ENSURES AND 200 ML OF WATER. PT SLEPT WELL T/O NIGHT WITH MINIMAL CALLING OUT. PT IS LAYING IN BED WITH EYES CLOSED, EVEN AND UNLABORED RESPIRATIONS. BED IN LOWERED POSITION WITH BED ALARM IN PLACE. CALL LIGHT AND PERSONAL ITEMS WITHIN REACH. NO APPARENT NEEDS OR DISTRESS AT THIS TIME, WILL CONTINUE TO MONITOR UNTIL REPORT GIVEN TO DAY RN.
--- NOTE | 2020-02-10 18:03 | NUR ---
SHIFT SUMMARY NO ACUTE CONCERNS WITH LOUISE TODAY. SHE HAS BEEN PLEASANT, ALERT TO SELF AND SURROUNDINGS. SHE HAS ASKED MOST OF TODAY TO KEEP HER LIGHTS OFF. ONLY HAD TWO EPISODES OF CALLING OUT. TOOK ALL HER MEDICATIONS MINUS HER 1700 HEART MEDICATION. SHE STATES SHE WANTED TO JUST SLEEP AT THS TIME.
--- NOTE | 2020-02-11 04:14 | NUR ---
SHIFT SUMMARY ADMITTED FOR ACUTE PSYCHOSIS. FULL CODE. ONE POSSIBLE PLAN IS FOR DAUGHTER TO POSSIBLY BECOME CAREGIVER, ANOTHER IS FOR PLACEMENT IN [facility]. PT IS LEGALLY BLIND. SHE IS PREVIOUSLY FROM [facility]. SHE ONLY CRIED OUT BRIEFLY AT BEGINNING OF SHIFT AND WAS EASILY REDIRECTED. SHE RESTED COMFORTABLY THROUGHOUT THE NIGHT. SHE HAS A CHRONIC MENDOZA. IT WAS REPORTED TO ME THAT AT TIMES SHE REFUSES MEDS, BUT SHE ACCEPTED ALL MEDS THIS SHIFT. NO NEW CONCERNS THIS SHIFT.
--- NOTE | 2020-02-11 18:12 | NUR ---
SHIFT SUMMARY PATIENT IS SLEEPING A LOT. SHE DOES NOTW ANT TO GET UP. SHE IS GETTING MORE AND MORE WITHDRAWN. SHE STATES SHE IS OKAY BUT ALSO LOOKS LIKE SHE IS NOT FEELING WELL. SHE HAS SLEPT JUST FINE TODAY.
--- NOTE | 2020-02-12 04:03 | NUR ---
SHIFT SUMMARY ADMITTED FOR ACUTE PSYCHOSIS. FULL CODE. PLAN IS FOR PLACEMENT IN [facility] VS. DAUGHTER BECOMING CAREGIVER. PT OCCASSIONALLY REFUSES MEDICATIONS. IT WAS REPORTED TO ME THAT THIS PT REFUSED LUNCH AND DINNER. SHE DID ACCEPT APPLESAUCE WITH HER MEDICATIONS AND REQUEST LIQUIDS THIS SHIFT. MEDICATED THIS SHIFT FOR AGITATION, SEE EMAR. NO NEW CONCERNS.
--- NOTE | 2020-02-13 04:45 | NUR ---
PT has restless night very little sleep lots of hollering out attention seeking behavior. Incontinent of loose brown stool multiple times put PT on bedpan several times but she will not go on bedpan. Perianal excoriation present skin care done barrier cream applied. PT needs 2 max assist for toileting & bed mobilty. Hollers out for hours at a time wants staff to stay with her. PRN seroguel given with very mild helpful effect. Took fluid with straw, drank ensures x 3. On oral antibiotic bid to treat ECOLI UTI. PRN given for hypertension. Will repeat PRN as soon as available.
--- NOTE | 2020-02-13 08:58 | NUR ---
INFORMED DR DAY OF PATIENTS CHEM BG OF 512 @ 4763. NO NEW ORDERS GIVEN.
--- NOTE | 2020-02-13 12:31 | NUR ---
Met pt. with family members in the room, on visit pt. is doing much better encouraged pt. and gave spiritual support and prayers.
--- NOTE | 2020-02-13 15:27 | NUR ---
PATIENT HAS BEEN PRETTY TIRED AND RESTING MOST OF THE DAY. SHE DID HAVE ABOUT A 1-2 HOUR PERIOD THIS MORNING WHERE SHE WAS YELLING OUT BUT THAT HAS SUBSIDED. VITALS HAVE BEEN STABLE. PATIENT REMAINS BEDBOUND WITH CHRONIC MENDOZA PATENT AND DRAINING TO GRAVITY. POOR APPETITE. PATIENT RESTING IN BED AT THIS TIME. WILL CONTINUE TO MONITOR AND PROVIDE CARE NEEDED.
--- NOTE | 2020-02-14 02:56 | NUR ---
PT is quiet tonight with no prolonged outbursts. Cooperative with meds & cares without resisitance. Needs assist to eat, refused dinner took sips of fluids with straw & bites of applesauce with meds. Blood glucose in 200 shawn gave 15 units semglee insulibn SQ.
--- NOTE | 2020-02-14 06:30 | NUR ---
PT very subdued this shift with no prolonged outbursts. Continues to be incontinent of brown loose gritty stools. Minimal interaction this shift had to woken for HS meds. PT does not use call stafford. Dependent on staff for bed mobility, toileting & she declines out of bed or bedpan use .She has moisture related skin problems from fecal incontinence. Skin care cath care provided multiple times. Being tx for ecoli UTI. +-
--- NOTE | 2020-02-14 13:36 | NUR ---
Met pt. in bed resting offered prayers for the pt.
--- NOTE | 2020-02-14 17:19 | NUR ---
PATIENT HAS CONTINUED TO BE LETHARGIC AND SLEEPS FOR THE MAJORITY OF THE SHIFT. SHE AWAKENS TO ALLOW FOR VITALS, CHEM BG'S AND TO TAKE MEDICATIONS BUT RETURNS RIGHT BACK TO SLEEP. DECLINING TO EAT; COMMERCIAL LENDING ASSISTANT ATTEMPTS AND PROMPTS PATIENT TO EAT AT EACH MEAL WITH LTTLE TO NO SUCCESS. NO YELLING OUT TODAY. VITALS HAVE BEEN STABLE. PATIENT IS IN BED SITTING UPRIGHT AT THIS TIME; COMMERCIAL LENDING ASSISTANT IS ATTEMPTING TO FEED DINNER. WILL CONTINUE TO MONITOR AND PROVIDE CARE NEEDED.
--- NOTE | 2020-02-15 06:15 | NUR ---
PT had fairly uneventful night until her 2nd incontinent BM when she escalated with her screaming & hysterical episodes. Does not communicate needs well. Says I think my Mother is poopy. LArge brown loose stool x 2. Needed fed & hold drinks for oral intake. Medicated with prn seroquel 50 mg with helpful effect. Continues on abx to treat ECOLI uti mehta patent drains cloudy yellow urine.
--- NOTE | 2020-02-15 12:41 | NUR ---
Pt. is in bed resting prayed with pt. and encouraged her .
--- NOTE | 2020-02-15 16:41 | NUR ---
Patient has been sleeping all day. She does awaken long enough to take her medication but goes right back to sleep. I have not given the patient any PRN seroquel this shift. Chem BG's have been in the high 100's; patient covered with insulin as per orders. Patient continues on PO abx without s/sx of adverse reactions noted or reported. Vitals stable. Patient cooperative with the staff. Patient asleep in bed at this time. WIll continue to monitor and provide care as needed,
--- NOTE | 2020-02-16 04:38 | NUR ---
MOBILE TESTER SUMMARY PT A/O X1-2. SLEPT MOST OF THE NIGHT. DENIES PAIN, NAUSEA, SOB. VSS. NO ACUTE CHANGES. BED ALARM IN PLACE. CALL LIGHT WITHIN REACH.
--- NOTE | 2020-02-16 19:17 | NUR ---
SHIFT SUMMARY PT [id number]. PT CRYING OUT AND YELLING OFTEN THROUGHOUT THE DAY TODAY. EACH TIME PATIENT WAS CHECKED ON SHE EXPRESSED DIFFICULTY ANSWERING QUESTIONS OR WOULD RESPOND THAT NOTHING WAS WRONG. VERY CONFUSED BEHAVIOR AND LANGUAGE. PT MENDOZA CATH DRAINING TO GRAVITY. ONE INCONTINENT BM TODAY. PT HAS SMALL PRESSURE ULCER ON BUTTOCKS. NEW PIC IN CHART AND NEW FOAM IN PLACE. FEEDER FOR MEALS. APPETITE LOW. MEDS WHOLE IN APPLESAUCE. PLAN IS STILL PLACEMENT PENDING. VITALS REVIEWED. CURRENTLY RESTING IN BED WITH CALL LIGHT IN REACH.
--- NOTE | 2020-02-17 04:37 | NUR ---
GRAINING PRESS OPERATOR SUMMARY PT A/O X1 TO SELF. PT PERIODICALLY CRIES OUT TONIGHT AND WAS ABLE TO FALL BACK TO SLEEP. VSS. CALL LIGHT WITHIN REACH, BED ALARM IN PLACE. NO ACUTE CHANGES.
--- NOTE | 2020-02-17 18:18 | NUR ---
SHIFT SUMMARY PT AxOx1-2, SELF AND FOLLOWS DIRECTION. PT STILL CRYING OUT ON AND OFF TODAY. LESS INCONSOLABLE THAN YESTERDAY. SEEMS TO BE LONELY. OFTEN CRIES WHEN CAREGIVERS LEAVE THE ROOM. UP IN CHAIR FOR MEALS. LOW APPETITE. CHANGED DIET TO FINGER FOODS. MENDOZA DRAINING CLEAR URINE TO GRAVITY. INCONT OF BLADDER & BOWEL. VITALS REVIEWED. DENIES PAIN. PT CURRENTLY EATING DINNER IN RECLINER WITH CALL LIGHT IN REACH. DENIES ANY NEEDS AT THIS TIME.
--- NOTE | 2020-02-18 04:28 | NUR ---
SHIFT SUMMARY ASSUMED CARE OF PT AT 1900. PT DID NOT WAKE UNTIL 2300 FOR NIGHT TIME MEDCATIONS. PT HAS LOOSE BROWN STOOLS. PT URINE IS DARK WITH SEDIMENT IN IT. PT ATE SEVERAL SNACKS AND DRANK ABOUT 500CC OF WATER AND SODA. PT CRIED OUT FOR ABOUT AN HOUR AND THEM FELL BACK ASLEEP. NO ACUTE EVENTS DURING THE NIGHT. CALL LIGHT IN REACH, BED IN LOWEST POSITION, WILL CONTINUE TO MONITOR.
--- NOTE | 2020-02-18 16:12 | NUR ---
SHE WOKE UP FOR MEALS. SHE NEEDS SOME ASSIST D/T HER BLINDNESS AND HER PSYCHOSIS. MENDOZA PATENT WITH VICTORIANO URINE OUTPUT. SHE HAS NO COMPLAINTS. WHEN SHE IS AWAKE, SHE CRIES SOME. THIS IS MUCH LESS DRAMATIC THAN IT USED TO BE.
--- NOTE | 2020-02-19 04:20 | NUR ---
SHIFT SUMMARY ASSUMED CARE OF PT AT 1900. PT IS A/OX1. PT AWOKE CONFUSED AND ASKED WHERE HER AND CARGIVER WAS. PT WAS CONFUSED HOW THIS NURSE GOT "INTO HER HOUSE". PT HAD NO SCREAMING EVENTS BESIDES WHEN SHE AWOKE DUE TO INCONTINENT LOOSE STOOL IN HER ATTENDS. LUNG SOUNDS CLEAR, HEART SOUNDS REGULAR. MEPILEX ON BOTTOM C/D/I. PT STATES SHE HAS NO NEW COMPLAINTS. NO ACUTEEVENTS DURING THE NIGHT. PT SLEPT T/O THE NIGHT. CALL LIGHT IN REACH, BED IN LOWEST POSTION, WILL CONTINUE TO MONITOR.
--- NOTE | 2020-02-19 15:14 | NUR ---
I GAVE HER 50 MG SEROQUEL WITH HER SCHEDULED AM MEDS BECAUSE OF THE GAP CREATED WHEN THE 200 MG ORDER WAS CORRECTED TO BEDTIME. SHE WILL RESUME HER BEDTIME 200 MG DOSE TONIGHT. SHE HAD A QUIET RESTFUL AM, ATE BREAKFAST WITH ASSIST THEN WAS TRANSFERRED UP TO A CHAIR FOR LUNCH. SHE DID NOT USE HER LEGS AND WAS TAKEN TO THE CHAIR. WHILE IN THE CHAIR SHE STARTED UNCONTROLLABLY CRYING. SHE WOULD STOP SOON WE SPOKE TO HER , THEN RESUME AGAIN SHORTLY AFTER LEAVING THE ROOM. WAS IN THE SCU ROUNDING AND ORDERED A NOW DOSE OF 50 MG SEROQUEL SINCE IT WAS AN HOUR TOO SOON FOR THE PRN DOSE. 20 MIN AFTER THE DOSE, SHE QUIETED AND LOOKED MORE COMFORTABLE. SHE WAS LATER PUT BACK TO BED WITH 2 MAX ASSIST SHE AGAIN DID NOT USE HER LEGS. SHE HAS BEEN INCONTINENT OF LIQUID BROWN STOOLS TODAY. FOAM DRESSING CHANGED ON HER RT BUTTOCK SHEARING WOUND.
--- NOTE | 2020-02-19 16:38 | NUR ---
SHE IS ASLEEP. SHE WAS FED HER EARLIER MEALS. SHE EATS FAIR. SHE HAS BEEN GIVEN PRN SEROQUEL X2 TODAY, ONE DOSE PLANNED D/T SCHEDULED LARGER DOSE CHANGE AND ONE DOSE GIVEN WHEN HER CRYING WAS DISTURBING OTHER PATIENTS. SEE PREVIOUS NOTE. SHE CONTINUES TO BE INCONTINENT OF LIQUID BROWN STOOL. HER ABD IS SOFT AND NOT DISTENDED. MENDOZA PATENT. SBP STILL RUNS A LITTLE HIGH.
--- NOTE | 2020-02-19 18:05 | NUR ---
HER DAUGHTER VISITED FOR ABOUT 30 MIN.
--- NOTE | 2020-02-20 04:09 | NUR ---
SHIFT SUMMARY: PT IS ALERT AND CONFUSED. PT IS CALM AND COOPERATIVE WITH CARE. PT NOT UP OUT OF BED OVERNIGHT. PT DID NOT USE HER CALL LIGHT. PT SLEPT MUCH OF THE NIGHT WHEN NOT DISTURBED. PT DENIES PAIN, NAUSEA, VOMITING, AND SOB. PT AWAITING PLACEMENT. NO ACUTE CHANGES OR COMPLICATIONS THIS SHIFT. BED IN LOW POSITION, CALL LIGHT WITHIN REACH. WILL REPORT TO DAY NURSE.
--- NOTE | 2020-02-20 11:15 | NUR ---
Pt. in bed resting seems to be doing fine encouraged pt. and offered prayers .
--- NOTE | 2020-02-20 18:41 | NUR ---
SHIFT SUMMARY: NO ACUTE CHANGES TO REPORT THIS SHIFT. PT A&O X2; CALM AND COOPERATIVE WITH CARE. NO C/O PAIN THIS SHIFT. CHRONIC MENDOZA FOR RETENTION; PATENT & DRAINING; EMPIRIC ABX CONTINUING. AWAITING PLACEMENT. WCTM.
--- NOTE | 2020-02-21 05:44 | NUR ---
SHIFT SUMMARY NO ACUTE CHANGES THIS SHIFT. HAS BEEN VERY TIRED T/O SHIFT. AOX3-PLACE, SELF, FOLLOWING DIRECTIONS. VSS. DENIES PAIN, N/V, OR DYSPNEA. ROSY MENDOZA IS PATENT & DRAINING. YELLED OUT "HELP ME" A COUPLE TIMES THIS SHIFT INSTEAD OF USING CALL LIGHT. BED ALARM IN PLACE FOR SAFETY. AWAITING PLACEMENT. .
[2020-02-21] MEDS ORDERED: Seroquel Xr50 MG PO (14:25)
[2020-02-21] MEDS ORDERED: Catapres-Tts 21 EACH TOP (14:27)
[2020-02-21] MEDS ORDERED: DEXT30SU PO (14:27)
[2020-02-21] MEDS ORDERED: LISI5 PO (14:28)
[2020-02-21] MEDS ORDERED: DOXY100 PO (14:28)
[2020-02-21] MEDS ORDERED: QUET300 PO (14:29)
--- NOTE | 2020-02-21 15:18 | NUR ---
Pt. is in bed resting , weak , aapt. is encouraged and prayed for quick recovery.
--- NOTE | 2020-02-21 15:51 | NUR ---
PATIENT DISCHARGE: PATIENT DISCHARGED TO HOME / XFR TO HOME HEALTH THIS SHIFT. MEDICATION RECONCILIATION COMPLETED; MED LIST FAXED TO [facility]. DISCHARGE EDUCATION COMPLETED WITH PATIENT AND FAMILY/CAREGIVER. PATIENT TRANSPORTED TO EXIT BY [facility] WITH WHEELCHAIR AT 1530. PATIENT DEPARTED [facility] VIA PRIVATE AUTO.
== END 2020-02-21 15:38 | disposition home health service (06) ==
LOC: ER 10:48 → MEDS 10:49
PROVIDERS: Family Medicine; Internal Medicine; ADMIT Hospitalist
DX: F33.3 Major depressive disorder, recurrent, severe with psychotic symptoms (principal); F48.2 Pseudobulbar affect; F41.8 Other specified anxiety disorders; K59.00 Constipation, unspecified; E11.65 Type 2 diabetes mellitus with hyperglycemia; I13.0 Hypertensive heart and chronic kidney disease with heart failure and stage 1 through stage 4 chronic kidney disease, or unspecified chronic kidney disease; E11.22 Type 2 diabetes mellitus with diabetic chronic kidney disease; N18.32 Chronic kidney disease, stage 3b; I50.32 Chronic diastolic (congestive) heart failure; D63.1 Anemia in chronic kidney disease; E78.5 Hyperlipidemia, unspecified; H54.8 Legal blindness, as defined in USA; I25.2 Old myocardial infarction; Z95.5 Presence of coronary angioplasty implant and graft; Z79.4 Long term (current) use of insulin; Z79.82 Long term (current) use of aspirin; Z79.899 Other long term (current) drug therapy; Z96.0 Presence of urogenital implants; Z88.0 Allergy status to penicillin; Z88.1 Allergy status to other antibiotic agents; Z88.2 Allergy status to sulfonamides; Z88.5 Allergy status to narcotic agent; Z88.6 Allergy status to analgesic agent; Z91.018 Allergy to other foods; Z87.891 Personal history of nicotine dependence
CPT/HCPCS: 36415; 51702; 80048; 80069; 81001; 82728; 82947; 83036; 83540; 83550; 85014; 85018; 85025; 85027; 87077; 87086; 87186; 93005; 93010; 96372; 96374; 97110; 97162; 97530; 99285; A9270; A9270-GY; G0378; J1650

== ENCOUNTER 2020-02-22 02:43 | Observation (INO) | payer OTHER ==
[~2020-02-22] VITALS: Ht 162.6 cm; Wt 59.0 kg
[~2020-02-22 02:43] MED LIST changes: +Catapres-Tts 21 EACH TOP; +DEXT30SU PO; +QUET300 PO
[2020-02-22 03:10] LABS: BASOPHILS ABSOLUTE AUTO 0.02 K/mm3 (0.00-0.23); BASOPHILS PERCENT AUTO 0 % (0-2); EOSINOPHILS ABSOLUTE AUTO 0.03 K/mm3 (0.00-0.68); EOSINOPHILS PERCENT AUTO 0 % (0-6); Hemoglobin 8.8 g/dL (11.5-16.0); IMMATURE GRAN ABSOLUTE AUTO 0.03 K/mm3 (0.00-0.10); IMMATURE GRAN PERCENT AUTO 0 % (0-1); LYMPHOCYTES ABSOLUTE AUTO 0.87 K/mm3 (0.84-5.20); LYMPHOCYTES PERCENT AUTO 11 % (21-46); MONOCYTES ABSOLUTE AUTO 0.47 K/mm3 (0.16-1.47); MONOCYTES PERCENT AUTO 6 % (4-13); Mean Corpuscular HGB 26.5 pg (26.0-34.0); Mean Corpuscular HGB Conc 31.4 g/dL (31.5-36.5); Mean Corpuscular Volume 84 fL (80-100); Mean Platelet Volume 10.9 fL (9.1-12.4); NEUTROPHILS ABSOLUTE AUTO 6.56 K/mm3 (1.96-9.15); NEUTROPHILS PERCENT AUTO 82 % (41-73); Platelet Count 209 K/mm3 (150-400); RDW Coefficient Variation 15.4 % (11.7-14.2); RDW Standard Deviation 47.3 fL (35.1-46.3); Red Blood Cell Count 3.32 M/mm3 (3.80-5.20); White Blood Cell Count 7.98 K/mm3 (4.00-11.30)
[2020-02-22 03:28] LABS: Albumin, Blood 2.4 g/dL (3.4-5.0); Albumin/Globulin Ratio 0.5 (0.8-1.8); Bilirubin, Total 0.3 mg/dL (0.1-1.0); Bun/Creatinine Ratio 30.7 (12.0-20.0); Calcium, Blood 8.6 mg/dL (8.5-10.1); Creatinine, Blood 2.44 mg/dL (0.40-1.00); Globulin, Blood 4.7 g/dL (2.2-4.0); Total Protein, Blood 7.1 g/dL (6.4-8.2)
[2020-02-22 03:52] LABS: Source, Urine Catheter
[2020-02-22 03:54] LABS: Appearance, Urine Turbid (Clear); Bilirubin, Urine Neg (Neg); Blood, Urine 4+ (Neg); Color, Urine Yellow (P-Yellow); Glucose Qualitative, Urine Neg (Neg); Ketones, Urine Neg (Neg); Leukocyte Esterase, Urine 3+ (Neg); Nitrite, Urine Neg (Neg); Protein, Urine 4+ (Neg); Urobilinogen, Urine NORM (Normal)
[2020-02-22 04:02] LABS: Bacteria Many /hpf; Squamous Epithelial Cells Not Seen /hpf (Few); White Blood Cells, Urine 25-50 /hpf (0-5); Yeast/Fungi Urine Many /hpf
--- NOTE | 2020-02-22 06:33 | NUR ---
SUMMARY PT ARRIVED TO FLOOR IN NO DISTRESS. PT YELLING OUT AT TIMES BUT EASILY REDIRECTED. PT ARRIVED WITH MENDOZA AND WAS CHANGED OUT. UA SENT TO LAB. PT CURRENTLY SLEEPING WITH CALL LIGHT IN REACH AND BED ALARM ON.
[2020-02-22 06:35] LABS: Free Thyroxine 0.7 ng/dL (0.70-1.60); Thyroid Stimulating Hormone 6.44 uIU/mL (0.360-4.800)
[2020-02-22 06:58] LABS: Source, Urine Catheter
[2020-02-22 07:00] LABS: Appearance, Urine Hazy (Clear); Bilirubin, Urine Neg (Neg); Blood, Urine 3+ (Neg); Color, Urine Yellow (P-Yellow); Glucose Qualitative, Urine 2+ (Neg); Ketones, Urine 1+ (Neg); Leukocyte Esterase, Urine 1+ (Neg); Nitrite, Urine Neg (Neg); Protein, Urine 4+ (Neg); Specific Gravity, Urine 1.015 (1.003-1.022); Urobilinogen, Urine NORM (Normal)
[2020-02-22 07:10] LABS: Amorphous Heavy (0-Heavy); Bacteria Mod /hpf; Squamous Epithelial Cells Few /hpf (Few)
[2020-02-22 07:13] LABS: Yeast/Fungi Urine Mod /hpf
[2020-02-22 07:14] LABS: Transitional Epithelial Cells Few /hpf (0-Rare)
[2020-02-22 07:15] LABS: Renal Epithelial Rare /hpf (0-Rare)
--- NOTE | 2020-02-22 16:49 | NUR ---
SUMMARY PT SLEPT MOST OF DAY, WAKE LONG ENOUGH TO TAKE MEDICATIONS, DRINKS OF FLUIDS, 1 PUDDING. SHE DECLINED LUNCH & DINNER. SHE STATE POOR SLEEP LAST NIGHT. DR DING ADJUSTED HER MENTAL HEALTH MEDS. SHE WOKE UP THIS AFTERNOON, HUNGRY, YELLING/MOANING. SNACKS PROVIDED. INCONT STOOL, ATTENDS CHANGED, SACRAL AREA SHEAR NOTED, FOAM DRSG CHANGED. MENDOZA CATH CARE PROVIDED. VS.
--- NOTE | 2020-02-23 04:15 | NUR ---
SHIFT SUMMARY: VSS. AFEB. AAOX3. PT SLEEPING FOR THE MAJORITY OF THE NIGHT. AWAKENS EASILY WHEN INTERACTED WITH. NO CALLING OUT, YELLING, OR EMOTIONAL OUTBURSTS TONIGHT. ALL INTERACTIONS W/PT ARE RELAXED, CALM AND APPROPRIATE. IV FLUIDS INFUSED PER ORDERS FOR A TOTAL OF 1500MLS. F/C PATENT AND DRAINING CLOUDY YELLOW URINE. NO ACUTE CHANGES. WILL CONT TO MONITOR.
[2020-02-23 07:06] LABS: BASOPHILS ABSOLUTE AUTO 0.02 K/mm3 (0.00-0.23); BASOPHILS PERCENT AUTO 0 % (0-2); EOSINOPHILS ABSOLUTE AUTO 0.06 K/mm3 (0.00-0.68); EOSINOPHILS PERCENT AUTO 1 % (0-6); Hematocrit 27.7 % (33.0-51.0); Hemoglobin 8.6 g/dL (11.5-16.0); IMMATURE GRAN ABSOLUTE AUTO 0.02 K/mm3 (0.00-0.10); IMMATURE GRAN PERCENT AUTO 0 % (0-1); LYMPHOCYTES ABSOLUTE AUTO 1.21 K/mm3 (0.84-5.20); LYMPHOCYTES PERCENT AUTO 17 % (21-46); MONOCYTES ABSOLUTE AUTO 0.33 K/mm3 (0.16-1.47); MONOCYTES PERCENT AUTO 5 % (4-13); Mean Corpuscular HGB 26.8 pg (26.0-34.0); Mean Corpuscular Volume 86 fL (80-100); Mean Platelet Volume 10.6 fL (9.1-12.4); NEUTROPHILS ABSOLUTE AUTO 5.59 K/mm3 (1.96-9.15); NEUTROPHILS PERCENT AUTO 77 % (41-73); Platelet Count 195 K/mm3 (150-400); RDW Coefficient Variation 15.9 % (11.7-14.2); RDW Standard Deviation 50.6 fL (35.1-46.3); Red Blood Cell Count 3.21 M/mm3 (3.80-5.20); White Blood Cell Count 7.23 K/mm3 (4.00-11.30)
[2020-02-23 07:46] LABS: Albumin, Blood 2.2 g/dL (3.4-5.0); Albumin/Globulin Ratio 0.5 (0.8-1.8); Bilirubin, Total 0.2 mg/dL (0.1-1.0); Bun/Creatinine Ratio 27.9 (12.0-20.0); Calcium, Blood 8.2 mg/dL (8.5-10.1); Creatinine, Blood 2.29 mg/dL (0.40-1.00); Globulin, Blood 4.5 g/dL (2.2-4.0); Potassium, Blood 4.2 mmol/L (3.5-5.5); Total Protein, Blood 6.7 g/dL (6.4-8.2)
--- NOTE | 2020-02-23 16:47 | NUR ---
SUMMARY PT IS A/O X2, POOR VISION, SHE STATE BLIND, UNABLE TO SEE. SHE IS WEAK/FATIGUED, DECONDITIONED. SHE REFUSE TO GET OOB DESPITE ENCOURAGEMENT. SHE HAS SLEPT INTERMITTANTLY T/O DAY. SHE HAS BEEN LESS NEEDY, CRYING/YELLING OUT. BRIGHTER VERBAL INTERACTION, SMILING OCCASIONALLY DURING CONVERSATION. SHE REQUIRES ASSIST TO EAT. DIABETIC, BLOOD SUGARS 160'S. APPETITE FAIR. VSS. UNCERTAIN D/C PLAN @ THIS TIME.
--- NOTE | 2020-02-23 22:34 | NUR ---
CALLING OUT AND CRYING EARLIER, CHANGED DUE TO FECAL INCONT. AFTER BEING CHANGED AND TOLERATED HS MEDS, CALMED DOWN AND IS CURRENTLY RESTING QUIETLY. CALL LIGHT IN REACH.
--- NOTE | 2020-02-24 04:25 | NUR ---
SHIFT SUMMARY HAS BEEN RESTING QUIETLY AT INTERVALS WITH OCCASIONAL OUT BURSTS OF YELLING, CRYING AND CALLING OUT FOR FOOD. CHANGED WHEN INCONT OF FECES, MENDOZA DRAINING VICTORIANO. CALL LIGHT IN REACH.
--- NOTE | 2020-02-24 17:15 | NUR ---
SUMMARY PT RESTING QUIETLY IN BED, WAKES EASILY, PT HAS BEEN COOPERATIVE WITH CARE, MED FOR ANXIETY PER EMAR, PT ABLE TO TAKE PILLS WHOLE IN APPLESAUCE, PT DOES NOT USE HER CALL LIGHT, BED ALARM ON FOR SAFETY, PT HAS NOT TRIED TO GET UP OUT OF BED UNASSISTED, PT REQUIRING FREQUENT CHECKS AND ROUNDING TO PREVENT ANXIETY, PT HAS CRIED OUT LESS TODAY THAN IN THE PAST DUE TO FREQUENT ROUNDING AND FREQUENT REASSURANCE, VSS, NO ACUTE CHANGES, WILL CONT TO MONITOR
--- NOTE | 2020-02-25 04:34 | NUR ---
SHIFT SUMMARY NO ACUTE CHANGES THIS SHIFT. PT OCCASIONALLY CALLED OUT, MEDICATED FOR ANXIETY PER MAR. INCONTINENT OF STOOL X2, MENDOZA PATENT AND DRAINING. PT WAS ABLE TO DRINK 1 GLUCERNA THIS SHIFT. PT IS LAYING IN BED WITH EYES CLOSED, EVEN AND UNLABORED RESPIRATIONS. BED IN LOWERED POSITION WITH ALARM IN PLACE. CALL LIGHT AND PERSONAL ITEMS WITH IN REACH. NO APPARENT NEEDS OR DISTRESS AT THIS TIME, WILL CONTINUE TO MONITOR UNTIL REPORT GIVEN TO DAY RN.
--- NOTE | 2020-02-25 17:39 | NUR ---
SHIFT SUMMARY PT AXO TO SELF, [place] AND FOLLOWING DIRECTIONS THOUGH CONTINUES TO CALL OUT WHEN AWAKE. KELLY KENDRICK'William PER ORDER, AWAITING FIRST VOID AT THIS TIME. PT HAD TWO INCONT BMS THIS SHIFT. HTN NOTED, PT MEDICATED PER EMAR. NO OTHER CHANGES THIS SHIFT. BED IN LOW POSITON, CALL LIGHT WITHIN REACH.
[2020-02-26 00:18] LABS: Source, Urine Catheter
[2020-02-26 00:21] LABS: Appearance, Urine Hazy (Clear); Bilirubin, Urine Neg (Neg); Blood, Urine Neg (Neg); Color, Urine Yellow (P-Yellow); Glucose Qualitative, Urine Neg (Neg); Ketones, Urine Neg (Neg); Leukocyte Esterase, Urine 1+ (Neg); Nitrite, Urine Neg (Neg); Protein, Urine 3+ (Neg); Specific Gravity, Urine 1.015 (1.003-1.022); Urobilinogen, Urine NORM (Normal)
[2020-02-26 00:27] LABS: Amorphous Mod (0-Heavy); Bacteria Few /hpf; Red Blood Cells, Urine 0-2 /hpf (0-2); Squamous Epithelial Cells Not Seen /hpf (Few); Yeast/Fungi Urine Few /hpf
--- NOTE | 2020-02-26 04:29 | NUR ---
SHIFT SUMMARY DURING SHIFT CHANGE, THIS RN WAS TOLD MENDOZA WAS DC'D @ 1500 WITH NO VOID AT THAT TIME. BLADDER SCAN OBTAINED @ 2231 SHOWING 604 ML, ORDER RECEIVED FROM DR. DAY TO PLACE MENDOZA. FC PLACED @ 2355, 675 ML EMPTIED @ 0017. PT STATES SHE FEELS BETTER AFTER CATHETER PLACEMENT. PT HAS HAD NO EPISODES OF CALLING OR YELLING OUT THIS SHIFT. SLEPT WELL T/O NIGHT WITH NO COMPLAINTS OF ANY KIND. NEW MEPILEX APPLIED TO BILAT HEELS. PT IS LAYING IN BED WITH EYES CLOSED, EVEN AND UNLABORED RESPIRATIONS. BED IN LOWERED POSITION WITH ALARM IN PLACE. CALL LIGHT AND PERSONAL ITEMS WITH IN REACH. NO APPARENT NEEDS OR DISTRESS AT THIS TIME, WILL CONTINUE TO MONITOR UNTIL REPORT GIVEN TO DAY RN.
--- NOTE | 2020-02-26 17:19 | NUR ---
PT HAS RESTED THROUGHOUT THE SHIFT. HER NORMAL EPISODES OF CRYING OUT FOR NO REASON HAVE GREATLY DIMINISHED . SHE IS EASILY REDIRECTABLE AND WILL STOP WHEN ASKED ABOUT WHY SHE IS YELLING. SHE HAS BEEN PLEASANT AND COOPERATIVE WITH CARES THIS SHIFT. CALL LIGHT WITHIN REACH.
--- NOTE | 2020-02-27 05:09 | NUR ---
02/27/20 0515 PT SLEPT WELL LAST NIGHT AFTER BEDTIME MEDS. DENIES ANY DISCOMFORT. VITALS STABLE. CONTINUES TO HAVE EPISODES OF YELLING INSTEAD OF USING CALL ZHAO FOR HELP. REMINDED AND SHOWN WITH TOUCH USE OF CALL ZHAO. REPOSITIONED Q 2 HOURS SIDE TO SIDE. MEPILEX DRESSINGS TO HEELS AND COCCYX. MENDOZA CATH PATENT AND DRAINING WELL.
[2020-02-27 09:57] LABS: Bun/Creatinine Ratio 26.8 (12.0-20.0); Calcium, Blood 8.1 mg/dL (8.5-10.1); Creatinine, Blood 2.28 mg/dL (0.40-1.00); Potassium, Blood 4.8 mmol/L (3.5-5.5)
--- NOTE | 2020-02-27 16:46 | NUR ---
SHIFT SUMMARY- PT A/OX1 ONLY. PT DENIES ANY COMPLAINTS T/O THE DAY. LS CLEAR, ON RA. CHRONIC MENDOZA IN PLACE DRAINING CLEAR/YELLOW URINE. PT OUT OF BED WITH 2 MAX ASSIST, PT SHOWERED TODAY WITH ASSISTANCE. PHOTO TAKEN OF PRESSURE ULCER TO SACRAL/ RIGHT BUTTOCK, NEW DRESING APPLIED. NO OTHER ACUTE CHANGES THIS SHIFT. PT AWAITING PLACEMENT.
[2020-02-28 06:18] LABS: BASOPHILS ABSOLUTE AUTO 0.03 K/mm3 (0.00-0.23); BASOPHILS PERCENT AUTO 0 % (0-2); EOSINOPHILS ABSOLUTE AUTO 0.06 K/mm3 (0.00-0.68); EOSINOPHILS PERCENT AUTO 1 % (0-6); Hematocrit 25.4 % (33.0-51.0); Hemoglobin 7.7 g/dL (11.5-16.0); IMMATURE GRAN ABSOLUTE AUTO 0.03 K/mm3 (0.00-0.10); IMMATURE GRAN PERCENT AUTO 0 % (0-1); LYMPHOCYTES PERCENT AUTO 12 % (21-46); MONOCYTES PERCENT AUTO 6 % (4-13); Mean Corpuscular HGB 26.3 pg (26.0-34.0); Mean Corpuscular HGB Conc 30.3 g/dL (31.5-36.5); Mean Corpuscular Volume 87 fL (80-100); Mean Platelet Volume 11.4 fL (9.1-12.4); NEUTROPHILS ABSOLUTE AUTO 6.55 K/mm3 (1.96-9.15); NEUTROPHILS PERCENT AUTO 80 % (41-73); Platelet Count 194 K/mm3 (150-400); RDW Standard Deviation 48.2 fL (35.1-46.3); Red Blood Cell Count 2.93 M/mm3 (3.80-5.20); White Blood Cell Count 8.17 K/mm3 (4.00-11.30)
[2020-02-28 06:38] LABS: Albumin, Blood 1.9 g/dL (3.4-5.0); Anion Gap 8 mmol/L (6-16); Blood Urea Nitrogen 58 mg/dL (8-24); Bun/Creatinine Ratio 25.6 (12.0-20.0); CO2, Blood 19 mmol/L (21-32); Chloride, Blood 113 mmol/L (98-108); Creatinine, Blood 2.27 mg/dL (0.40-1.00); Glomerular Filtration Rate 24 (60-); Glucose, Blood 179 mg/dL (70-99); Phosphorus, Blood 4.5 mg/dL (2.5-4.9); Potassium, Blood 5.1 mmol/L (3.5-5.5); Sodium, Blood 140 mmol/L (136-145)
--- NOTE | 2020-02-28 07:13 | NUR ---
02/28/20 0715 VITALS STABLE. SLEPT WELL. UNEVENTFUL NIGHT.
--- NOTE | 2020-02-28 13:36 | NUR ---
Pt. is sitting in a chair and her nurse in the room attending the pt. in her needs encouraged pt. and offered prayers.
--- NOTE | 2020-02-28 17:27 | NUR ---
SHIFT SUMMARY NO ACUTE CHANGES T/O SHIFT, PT DID NOT ANSWER ORIENTATION QUESTIONS. NO COMPLAINTS THIS SHIFT. PERIODIC YELLING OCCURED T/O SHIFT, WELL SOME AUDITORY AND VISUAL HALLUCINATIONS. PT CALMS DOWN WHEN SAT WITH OR TALKED TO. PT WAS LIFTED TO CHAIR FOR ALL MEALS TODAY, MAX ASSIST. POSSIBLE DISCHARGE TOMORROW TO FACILITY IN [place]. PT IS CURRENTLY UP IN CHAIR WAITING FOR DINNER c CALL LIGHT WITHIN REACH.
--- NOTE | 2020-02-29 05:38 | NUR ---
SHIFT SUMMARY PT HAS RESTED MOST OF THE NIGHT. PT MOANS AND YELLS OUT ON OCCASION BUT IS EASILY CONSOLED. WHEN PT YELLS IT APPEARS SOMETIMES THAT SHE IS UNAWARE OF WHAT SHE IS DOING, WHEN I APPROACHED PT AND ASK IF EVERYTHING WAS OK SHE REPLIED IN A CALM AND MATTER OF FACT WAY THAT SHE WAS DOING OK, AND SEEMED TO FORGET THAT SHE WAS YELLING OUT. PT DENIES PAIN AND HAS RESTED MOST OF THE NIGHT. VITALS STABLE. BED IN LOWEST POSITION, CALL LIGHT WITHIN REACH.
[2020-02-29] MEDS ORDERED: FLUC100 PO (09:01)
[2020-02-29] MEDS ORDERED: INSULANPEN SC (09:02)
[2020-02-29] MEDS ORDERED: EUTHYROX50 MCG PO (09:03)
[2020-02-29] MEDS ORDERED: [UNRECOGNIZED DRUG - OTHER] PO (09:11)
--- NOTE | 2020-02-29 11:20 | NUR ---
DISCHARGE NOTE- PT DISCHARGED TO [facility] IN [place]. CALLED REPORT TO CYNDY SHE REQUESTED A FAX OF THE PT MED LIST AND H&P CALLED MANAGER OF HOSPITAL AND REQUESTED SHE FAX THE INFORMATION TO [phone] PER CYNDY'S REQUEST. PT WAS TAKEN VIA WC TRANSPORT TO [facility], [facility] [employer] [place] DELIVERED WC THE PT WAS LEAVING IT WAS LOADED INTO THE [facility] PT NEW BLOOD GLUCOMETER. NO FURTHER QUESTIONS AFTER TELEPHONE REPORT WAS COMPLETED.
== END 2020-02-29 10:07 | disposition home or self-care (01) ==
LOC: ER 02:43 → MEDS 02:44
PROVIDERS: Emergency Medicine; Internal Medicine; ADMIT Internal Medicine
DX: F32.3 Major depressive disorder, single episode, severe with psychotic features (principal); F48.2 Pseudobulbar affect; E86.0 Dehydration; N17.9 Acute kidney failure, unspecified; I13.0 Hypertensive heart and chronic kidney disease with heart failure and stage 1 through stage 4 chronic kidney disease, or unspecified chronic kidney disease; E11.22 Type 2 diabetes mellitus with diabetic chronic kidney disease; N18.32 Chronic kidney disease, stage 3b; I50.32 Chronic diastolic (congestive) heart failure; D63.1 Anemia in chronic kidney disease; N39.0 Urinary tract infection, site not specified; E87.5 Hyperkalemia; I25.2 Old myocardial infarction; F41.0 Panic disorder [episodic paroxysmal anxiety]; F41.8 Other specified anxiety disorders; Z87.442 Personal history of urinary calculi; Z95.5 Presence of coronary angioplasty implant and graft; Z88.0 Allergy status to penicillin; Z88.1 Allergy status to other antibiotic agents; Z88.2 Allergy status to sulfonamides; Z88.5 Allergy status to narcotic agent; Z88.6 Allergy status to analgesic agent; Z91.018 Allergy to other foods; Z79.4 Long term (current) use of insulin; Z79.82 Long term (current) use of aspirin; Z79.899 Other long term (current) drug therapy; Z23 Encounter for immunization; Z20.828 Contact with and (suspected) exposure to other viral communicable diseases
CPT/HCPCS: 36415; 76770; 80048; 80053; 80069; 81001; 82607; 82728; 82746; 82947; 83540; 83550; 83690; 84439; 84443; 85025; 86592; 87086; 87106; 96361; 96365; 96366; 96372; 96374; 96375; 96376; 99285-25; A9270; A9270-GY; G0378; J0696; J1650; J2405; J7030